=== PATIENT | female | born 1990 | race Caucasian/White ===

== ENCOUNTER 2018-01-07 13:24 | Emergency (ER) | payer MEDICAID, SELFPAY ==
[2018-01-07 13:25] VITALS: BP 138/86; PULSE 123; RESP 20; TEMP 37.6; O2SAT 98; BMI 29.3
--- NOTE | 2018-01-07 13:56 | CT_ITS ---
STUDY: CT BRAIN WITHOUT CONTRAST REASON FOR EXAM: Female, 27 years old. Migraine headache RADIATION DOSAGE (If Supplied By Facility): CTDIvol = ( 44.99 ) mGy, DLP = ( 1423.49 ) mGycm TECHNIQUE: Transaxial CT imaging of the brain was performed without administration of intravenous contrast material. Individualized dose optimization techniques were used for this CT. COMPARISON: June 05, 2016 FINDINGS: Normal soft tissue structures. Normal calvarium. Normal size ventricles and extra-axial spaces for the patient's age. Normal white matter tracts of the cerebral hemispheres. Normal basal ganglia and thalami. Normal brainstem. Normal cerebellum. There is no intracranial hemorrhage. There are no findings of an acute ischemic infarction. Normal visualized paranasal sinuses. CT/Brain/Head without Contrast IMPRESSION: Normal unenhanced CT scan of the brain. Electronically Signed: Mary Frederick MD at 14:45 EDT , Service support ,
[2018-01-07] MEDS: proCHLORPERazine 10 MG/2 ML Vial IV (14:10)
[2018-01-07] MEDS: 0.9% Normal Saline 1,000 ML 999 ML IV (14:10)
[2018-01-07] MEDS: DiphenhydrAMINE 50 MG/ML Syringe 25 MG IV (14:10)
--- NOTE | 2018-01-07 14:54 | ED.VISSUMM ---
- ER Visit Summary Date of Service: 01/07/18 Chief Complaint: Migraine headache History of Present Illness: The patient is a 27 F who presents with migraine headache that began today while she was at work. Patient states the pain began rather suddenly. Patient states her pain is diffuse across her head. Patient states this feels similar to prior migraine headaches but worse. Patient admits to some nausea and vomiting. Patient admits to some numbness in her hands bilaterally. Patient admits to some photophobia. Patient denies any scotoma or visual changes. Patient denies any neck pain. Physical Examination: Vital signs are stable. Patient is afebrile. Patient appears to be uncomfortable from her headache. Pupils are equal, round, reactive to light bilaterally. Extraocular muscles are intact. Oral mucosa is pink and moist. Neck is supple. There is no JVD noted. There is no lymphadenopathy. Heart was regular and tachycardic. Lungs are clear and equal bilateral. There is good respiratory effort noted. Abdomen is soft nontender. Cranial nerves II through XII are intact. There are no focal motor or sensory deficits noted. Remaining physical exam is within normal limits. Test Results: CT scan of the brain was obtained was within normal limits. Emergency Department Course and Treatment: Patient was given injections of Compazine and Benadryl. Patient had minimal relief with this. Patient was given an injection of Toradol. Patient states her headache resolved after this. Patient was instructed to rest in a dark quiet room. Patient was instructed to follow-up with her primary care physician in 5-7 days. Patient understood and was agreeable with the plan. All questions were answered. Disposition: Discharged home Impression: Migraine headache This note was generated with [employer] dictation software. It may contain incorrect words, spelling, and punctuation that were not noted in review of the chart prior to signing ED Disposition - Plan for ED Patient: Disposition: Home or Assisted Living Chief Complaint: Headache Diagnosis: Migraine headache without aura Instructions: ED Headache Migraine Referrals: [facility] Doctor,Out of [NON-STAFF] -
[2018-01-07] MEDS: Ketorolac 30 MG/ML Syringe IV (15:05)
[2018-01-07 15:40] VITALS: PULSE 112; RESP 16; O2SAT 95
[2018-01-07 15:51] VITALS: PULSE 112; RESP 14; O2SAT 95
--- NOTE | 2018-01-07 15:52 | ED.RN ---
REVIEWED D/C INSTRUCTIONS, FOLLOW UP CARE, AND S/S THAT WOULD WARRANT A RETURN TO THE ED WITH PT. PT VERBALIZED AN UNDERSTANDING AND DENIES FURTHER QUESTIONS FOR THIS RN. PT SKIN P/W/D, RESP EVEN AND UNLABORED, PT A&O X 3, NO DISTRESS NOTED. PT AMBULATED OUT OF ED, GAIT STEADY.
== END 2018-01-07 15:53 | disposition home or self-care (01) ==
PROVIDERS: Emergency Provider Emergency Medicine; PCP Family Medicine
DX: G43.909 Migraine, unspecified, not intractable, without status migrainosus (principal)
CPT/HCPCS: 70450; 96361; 96374; 96375; 99282; J7030

== ENCOUNTER 2019-01-21 05:02 | Emergency (ER) | payer BC, SELFPAY ==
[2019-01-21 05:04] VITALS: BP 115/85; PULSE 110; RESP 16; TEMP 37.6; O2SAT 97; BMI 29.2
[2019-01-21] MEDS: Metoclopramide 10 MG/2 ML Vial IV (05:32)
[2019-01-21] MEDS: 0.9% Normal Saline 1,000 ML 999 ML IV (05:32)
[2019-01-21] MEDS: Ketorolac 60 MG/2 ML Vial 30 MG IM (05:34)
--- NOTE | 2019-01-21 06:15 | ED.DCSUM_ITS ---
- ER Visit Summary Date of Service: 01/21/19 Chief Complaint: Migraine History of Present Illness: The patient is a 28 F who presents with a migraine. She has history migraines. Her current headache began about 2 hours ago. She woke with symptoms. It gradually worsened over the next 2 hours. She currently rates it as severe. It is similar in character and location to her previous headaches. She also reports photophobia and nausea which is typical of her previous migraines. She last had to come to the emergency department for migraine about a year ago. She did take some Tylenol at home without significant relief. No vomiting. Although triage note reported sore throat the patient denies this. Triage note also mentions shortness of breath. When asked the patient about this she states that she is not really short of breath but that when her pain becomes severe it takes her breath away. She denies recent illness such as fevers or cough. Physical Examination: Heart rate 110 vitals otherwise within normal limits Moist mucous membranes Heart regular tachycardia Lungs are clear Abdomen soft Alert No focal or lateralizing neurological deficits Test Results: Not indicated Emergency Department Course and Treatment: Presents with chief complaint of migraine with history of prior migraines with similar symptoms. She was treated with IV fluids Toradol Reglan. On reevaluation her headache is about 50% improved which is a tolerable level. She does continue to complain of some nausea. She was given IV Zofran. She feels well enough to go home. She understands to return for new or worsening symptoms and was discharged. Treatment Plan: [] Disposition: Discharge Impression: Migraine This note was generated with [employer] dictation software. It may contain incorrect words, spelling, and punctuation that were not noted in review of the chart prior to signing ED Disposition - Plan for ED Patient: Referrals: Dania Oseguera [Primary Care Provider] -
--- NOTE | 2019-01-21 06:17 | ED.DEP ---
ED Disposition - Plan for ED Patient: Instructions: HEADACHE, Unspecified Referrals: Dania Oseguera [Primary Care Provider] -
[2019-01-21] MEDS: Ondansetron 4 MG/2 ML Vial IV (06:24)
[2019-01-21 06:37] VITALS: PULSE 80; RESP 16; O2SAT 96
== END 2019-01-21 06:38 | disposition home or self-care (01) ==
PROVIDERS: Emergency Provider Emergency Medicine; PCP Family Medicine
DX: G43.909 Migraine, unspecified, not intractable, without status migrainosus (principal); Z72.0 Tobacco use
CPT/HCPCS: 96361; 96372; 96374; 96375; 99283; J7030; A4216; J2405

== ENCOUNTER 2023-02-03 12:29 | Emergency (ER) | payer MEDICAID, SELFPAY ==
[2023-02-03 12:30] VITALS: BP 124/97; PULSE 53; RESP 18; TEMP 36.1; O2SAT 97; BMI 30.2
--- NOTE | 2023-02-03 13:15 | EX.ED.DYSGE1 ---
HPI History of Present Illness Chief Complaint: Abd Pain PFSH PFSH Medical History (Updated 02/03/23 @ 15:[address] Justin Snider, DO) Carpal tunnel syndrome Collapsed lung Thyroid cancer Home Medications ondansetron 4 mg disintegrating tablet 4 mg PO Q8H PRN nausea and vomiting 5 days #15 tabs 02/03/23 [Rx Last Taken Unknown] sulfamethoxazole 800 mg-trimethoprim 160 mg tablet (Bactrim DS) 1 tab PO BID 7 days #14 tabs 02/03/23 [Rx Last Taken Unknown] Allergy/AdvReac Type Severity Reaction Status Date / Time No Known Allergies Allergy Verified 02/03/23 12:31 Surgical History (Updated 02/03/23 @ 12:37 by Ada Vela) H/O right wrist surgery Hx of left knee surgery Social History Smoking Status: Current every day smoker tobacco type: cigarettes EXAM Physical Exam Const Vital Signs: 02/03/23 12:30 02/03/23 14:32 Temperature 97 F L Temperature Source Temporal Pulse Rate 53 L 64 Respiratory Rate 18 17 Blood Pressure 124/97 H 125/86 H Blood Pressure Mean 106 99 Pulse Ox 97 100 Oxygen Delivery Method Room Air Room Air MDM MDM MDM Narrative Medical decision making narrative: HISTORY OF PRESENT ILLNESS: 32-year-old female here with 2 days of right flank and right lower quadrant TTP. Denies urinary complaints. Denies history of kidney stones. Notes history abdominal surgeries. Denies any vomiting but notes nausea. Denies any constipation or diarrhea. Last bowel was yesterday with no melena or hematochezia. REVIEW OF SYSTEMS: Pertinent positives: Abdominal pain, flank pain Pertinent negatives: Syncope, hematemesis PHYSICAL EXAM: Nursing triage notes reviewed, Vital signs reviewed Constitutional: please see mdm HENT: MMM Eyes: Pupils equal round and reactive to light, Extraocular muscles intact Neck: No stridor, no JVD, full neck ROM Lungs: Clear to auscultation, No wheezing or rales. No increased work of breathing, no conversational dyspnea, no accessory muscle use, no nasal flaring. No respiratory distress noted Heart: Regular rate and rhythm, No murmurs, No rubs and No gallops, 2+ distal pulses (radial, femoral, posterior tibial) in all extremities Abdomen: Soft, right lower quadrant TTP, no rigidity, rebound or guarding, no obvious peritoneal signs, no palpable pulsatile abdominal masses, no auscultated abdominal bruit : Right CVAT Extremities: No edema Neuro: No focal neurological deficits, cranial nerves II through XII intact, 5/5 strength in all extremities. Intact sensation to light touch in all extremities, 2+ reflexes bilateral patella tendons. Normal gait. No ataxia. Skin: No rash or lesions noted MEDICAL DECISION MAKING: Chief Complaint: Right lower quadrant, right flank pain External records reviewed: [No recent advanced imaging of the abdomen or pelvis Factors affecting care: Non Social determinants of health: none History obtained from others: none Consults: none ALL IMAGES (IF OBTAINED) HAVE BEEN PERSONALLY REVIEWED AND INTERPRETED BY MYSELF. Urine test is negative UA with signs of inflammation CBC without leukocytosis, severe anemia, no thrombocytopenia. BMP without evidence of significant electrolyte abnormalities, no anion gap, no acute kidney injury. LFTs show no evidence of hepatobiliary pathology. Lipase is wnl indicating no pancreatic inflammation. MDM Narrative: Patient was hemodynamically stable, afebrile, nontoxic-appearing abdominal exam with right lower quadrant TTP. There is also right CVA tenderness. I considered the following differential diagnosis: Acute appendicitis, nephrolithiasis, pyelonephritis, , ectopic , hepatobiliary obstruction I obtained a broad lab and imaging work-up to further elucidate etiology patient complaints. CT scan shows evidence of cystitis. CT showed no evidence of acute surgical intra-abdominal emergencies. UA was remarkable for signs of inflammation. Sent urine culture and gave empiric Bactrim for likely pyelonephritis given right CVA tenderness. Remainder patient's labs are unremarkable for signs of hepatobiliary obstruction, significant systemic inflammation, signs of endorgan hypoperfusion. She is appropriate discharge home with oral Bactrim with strict return precautions. [I gave the patient 1 L normal saline, morphine and Zofran for symptomatic relief. The patient and/or family, caregivers express understanding. The patient and/or family, caregivers agrees with the plan. Total critical care time today provided was at least 0 [] minutes. This excludes separately billable procedures. Critical care time (if documented) is secondary to the patient having high probability of clinically significant/life threatening deterioration in the patient's condition which required my urgent intervention. Shared decision making: I will have a discussion with the patient and or visitors regarding risk/benefits of further testing or admission. They will be made aware of of the risk/benefits inherent in this decision they will be given the opportunity to voice understanding. Lab Data Attestation: I reviewed the patient's lab results. Labs: Laboratory Results - last 24 hr 02/03/23 02/03/23 12:46 13:21 WBC 6.3 RBC 4.30 Hgb 13.2 Hct 39.8 MCV 92.6 MCH 30.7 MCHC 33.2 RDW Std Deviation 44.7 H RDW Coeff of Francisca 13.2 Plt Count 253 MPV 10.4 Immature Gran % (Auto) 0.200 Neut % (Auto) 56.2 Lymph % (Auto) 29.9 [place] % (Auto) 9.3 Eos % (Auto) 3.3 Baso % (Auto) 1.1 H Absolute Neuts (auto) 3.6 Absolute Lymphs (auto) 1.89 Nucleated RBC % 0 Sodium 138 Potassium 4.2 Chloride 106 Carbon Dioxide 29.0 Anion Gap 3 L BUN 13 Creatinine 0.88 Estim Creat Clear Calc 73.93 Est GFR (MDRD) Af Amer 96 Est GFR (MDRD) Non-Af 80 BUN/Creatinine Ratio 14.7 Glucose 89 Calcium 8.5 Total Bilirubin 0.20 Direct Bilirubin 0.08 AST 13 L ALT 16 Alkaline Phosphatase 51 Total Protein 7.5 Albumin 3.2 Globulin 4.3 H Lipase 30 Urine Color Yellow Urine Clarity Sl. Cloudy Urine pH 6.0 Ur Specific [place] 1.015 Urine Protein 30 H Urine Glucose (UA) Normal Urine Ketones Negative Urine Occult Blood 25 H Urine Nitrite Negative Urine Bilirubin Negative Urine Urobilinogen Normal Ur Leukocyte Esterase 100 H Urine RBC 5-10 SEEN Urine WBC 50-100 SEEN Ur Squamous Epith Cells 0-5 SEEN Ur Renal Epithelial Cell 0-5 SEEN Urine Bacteria 1+ Urine Mucus 0 SEEN Urine Test Negative Radiography Diagnostic Testing: Clinical Impression(s) from Imaging Studies Abdomen/Pelvis CT 02/03/23 14:15 IMPRESSION: Diffuse bladder wall thickening. Cystitis should BE ruled out. Follicles are seen in both ovaries. Embolic coils are seen in the splenic artery. Electronically Signed: Ned Rutledge MD at 15:09 EDT , Discharge Plan Triage Chief Complaint: Abd Pain ED Provider: Justin Snider Dx/Rx/DC Orders Clinical Impression: Pyelonephritis Instructions: ED Pyelonephritis, Female (Adult) Prescriptions: New sulfamethoxazole-trimethoprim [Bactrim DS] 800-160 mg tablet 1 tab PO BID 7 Days Qty: 14 0RF ondansetron 4 mg tablet,disintegrating 4 mg PO Q8H PRN (Reason: nausea and vomiting) 5 Days Qty: 15 0RF Stand Alone Forms: ED Work / School Excuse Primary Care Provider: CHANDAN BOSS Referrals: CHANDAN BOSS DO [Primary Care Provider] - Activity Restrictions/Additional Instructions: Thank you for trusting us with your care today! Please take Tylenol (2 pills, 650 mg), ibuprofen (2 pills, 400 mg) every 6 hours as needed for pain and fever control. Please take Bactrim as prescribed. Please finish the entire course of antibiotics. Please take Zofran for nausea. Please return to the emergency department if your symptoms change or worsen. Specifically develop nausea and vomiting cannot tolerate antibiotics by mouth. If your pain changes or worsens or causes loss of consciousness. Please follow with your primary care physician for further outpatient evaluation and management. Disposition Disposition: Home, Self Care
[2023-02-03] MEDS: Morphine 4 MG/ML Syringe IV (13:24)
[2023-02-03] MEDS: Ondansetron 4 MG/2 ML Vial IV (13:25)
[2023-02-03] MEDS: 0.9% Normal Saline 1,000 ML 1000 ML IV (13:25)
[2023-02-03 13:26] LABS: Mucous, Urine 0 SEEN /hpf (<or=2+)
[2023-02-03 13:29] LABS: Absolute Lymphocyte Count 1.89 X10^3/uL (0.83-4.51); Absolute Neutrophil Count 3.6 X10^3/uL (2.0-7.7); Basophil# 0.07 X10^3/uL; Basophil% 1.1 % (0-1); Eosinophil# 0.21 X10^3/uL; Eosinophils% 3.3 % (0-5); Hematocrit 39.8 % (37-47); Hemoglobin 13.2 g/dL (12.0-15.0); Lymphocyte # 1.89 X10^3/ul (0.83-4.51); Lymphocyte % 29.9 % (19-41); Mean Corp Hgb Conc 33.2 g/dL (32-36); Mean Corpuscular Hgb 30.7 pg (27.0-32.0); Mean Corpuscular Volume 92.6 fL (81-99); Mean Platelet Vol. 10.4 fl (6.2-12.0); Monocyte# 0.59 X10^3/uL; Monocyte% 9.3 % (0-10); NRBC Flagged by Analyzer 0 % (0-5); Neutrophil # 3.56 X10^3/uL (2.7-7.7); Neutrophil % 56.2 % (47-70); Platelet Count 253 K/mm3 (150-450); RBC Distribution Width CV 13.2 % (11.6-14.6); RBC Distribution Width SD 44.7 fl (35.1-43.9); White Blood Count 6.3 K/mm3 (4.4-11.0)
[2023-02-03 13:30] LABS: Color, Urine Yellow (Yellow); Glucose, Dipstick Normal (Normal); Ketone-Dipstick Negative (Negative); Leukocyte Esterase-Dipstick 100 /ul (Negative); Nitrite-Dipstick Negative (Negative); Occult Blood-Urine 25 /ul (Negative); Protein-Dipstick 30 mg/dl (Negative); Specific Gravity, Urine 1.015 (1.002-1.030); Urine Bilirubin Dipstick Negative (Negative); Urine Clarity Sl. Cloudy (Clear); Urine Urobilinogen Normal (Normal)
[2023-02-03 13:39] LABS: Internal QC Validated? YES +Cl - CLEAR BKGD; Pregnancy, Urine Negative Negative
[2023-02-03 13:45] LABS: White Blood Cells 50-100 SEEN /hpf (0-5)
[2023-02-03 13:46] LABS: Bacteria 1+ /hpf (None Seen); Red Blood Cells-Urine 5-10 SEEN /hpf (0-5); Renal Epithelial Cells 0-5 SEEN /hpf (0-5); Squamous Epithelial Cells - UA 0-5 SEEN /hpf (5-10)
[2023-02-03 13:56] LABS: AST(SGOT) 13 U/L (15-37); Alanine Aminotransfer ALT/SGPT 16 U/L (13-56); Albumin, Serum 3.2 g/dL (3.2-5.0); Alkaline Phosphatase 51 U/L (45-117); Anion Gap 3 (5-15); BUN 13 mg/dL (7-18); BUN/Creat Ratio 14.7 RATIO (10-20); Bilirubin, Direct 0.08 mg/dL (0.00-0.30); Calcium,Total 8.5 mg/dL (8.5-10.1); Chloride 106 mmol/L (98-107); Creatinine, Serum 0.88 mg/dL (0.55-1.02); EST Glomerular Filtration Rate 80 mL/min (>60); Est Glom Filt Rate - Afr Amer 96 mL/min (>60); Estimated Creatinine Clearance 73.93 ml/min; Globulin 4.3 g/dL (2.2-4.2); Glucose 89 mg/dL (74-106); Lipase 30 U/L (13-75); Potassium 4.2 mmol/L (3.5-5.1); Protein, Total 7.5 g/dL (6.4-8.2); Sodium Level 138 mmol/L (136-145)
--- NOTE | 2023-02-03 14:15 | CT_ITS ---
STUDY: CT ABDOMEN AND PELVIS WITH CONTRAST REASON FOR EXAM: Female, 32 years old. RLQ TTP r/o acute appendicitis. [facility] JUN 2022 WITH COIL PLACED RADIATION DOSAGE (If Supplied By Facility): CTDIvol = ( 11.22 ) mGy, DLP = ( 945.50 ) mGycm TECHNIQUE: Transaxial images were obtained from the dome of the diaphragm to the symphysis pubis without oral contrast. IV 100mL Isovue-300 was administered. Sagittal and coronal images were reconstructed. Individualized dose optimization techniques were used for this CT. COMPARISON: None. FINDINGS: The visualized lung bases are unremarkable. The visualized portions of the heart are within normal limits. Normal liver. Normal gallbladder and extrahepatic biliary system. Normal spleen. Embolic coils are seen in the splenic artery. Normal pancreas. Normal bilateral adrenal glands. Normal right kidney. Normal left kidney. Normal visualized stomach. Normal small intestine. Normal colon. The appendix is visualized and appears normal. Normal abdominal aorta. Normal inferior vena cava. Normal retroperitoneum. Diffuse bladder wall thickening. Cystitis should BE ruled out. Follicles are seen in both ovaries. Normal abdominal wall. Normal osseous structures. CT/Abdomen/Pelvis W IV Cont ONLY IMPRESSION: Diffuse bladder wall thickening. Cystitis should BE ruled out. Follicles are seen in both ovaries. Embolic coils are seen in the splenic artery. Electronically Signed: Ned Rutledge MD at 15:09 EDT ,
[2023-02-03] MEDS: Ketorolac 15 MG/ML Vial IV (14:24)
[2023-02-03 14:32] VITALS: BP 125/86; PULSE 64; RESP 17; O2SAT 100
[2023-02-03 15:22] VITALS: BP 126/83; RESP 17
[2023-02-03] MEDS: Smz/Tmp Ds Tablet 1 TABLET PO (15:23)
== END 2023-02-03 15:40 | disposition home or self-care (01) ==
PROVIDERS: Emergency Provider Emergency Medicine; PCP Family Medicine; Visit Provider Emergency Medicine
DX: N12 Tubulo-interstitial nephritis, not specified as acute or chronic (principal); F17.210 Nicotine dependence, cigarettes, uncomplicated; Z85.850 Personal history of malignant neoplasm of thyroid
CPT/HCPCS: 74177; 80048; 80076; 81001; 81025; 83690; 85025; 99284; J7040; Q9967; A4216; J2405

== ENCOUNTER 2025-04-16 02:26 | Emergency (ER) | payer MEDICAID, SELFPAY ==
[2025-04-16 02:27] VITALS: BP 125/93; PULSE 65; RESP 18; TEMP 36.6; O2SAT 100; BMI 36.4
--- NOTE | 2025-04-16 02:42 | CT_ITS ---
PROCEDURE: ABDOMEN/PELVIS W IV CONT ONLY 04/16/2025 REASON FOR EXAM: ABD PAIN TECHNIQUE: Procedure Code: [id number] Modality: CT Procedure: ABDOMEN/PELVIS W IV CONT ONLY Coronal and Sagittal reconstruction series were provided. CONTRAST: Isovue 370 VOLUME: 92 mL One or more dose reduction techniques were used (e.g., Automated exposure control, adjustment of the mA and/or kV according to patient size, use of iterative reconstruction technique. RADIATION DOSE SUMMARY: CTDlvol: 28.23 mGy DLP: 1433.22 mGycm COMPARISON: CT abdomen and pelvis 02/03/2023. FINDINGS: Lung bases: Clear. Liver: Unremarkable. Gallbladder: Unremarkable. No biliary dilation. Spleen: Unremarkable. Pancreas: Unremarkable. Adrenals: Unremarkable. Kidneys: Unremarkable. No hydronephrosis or nephrolithiasis. Bladder: Diffuse wall thickening concerning for acute cystitis. Reproductive Organs: Unremarkable. GI: Metallic coil from prior intervention is near the gastroesophageal junction. No bowel wall thickening or bowel obstruction. Appendix: Normal. Lymph nodes: No lymphadenopathy Vasculature: No aneurysm. Peritoneum / Retroperitoneum: No free air and free fluid. Bones: No acute bony abnormalities. CT/Abdomen/Pelvis W IV Cont ONLY IMPRESSION: Bladder wall thickening concerning for. Correlation with urinalysis is recomme nded. Reading Location: [facility]
[2025-04-16] MEDS: 0.9% Normal Saline (1000mL) 1,000 ML 999 ML IV (02:52)
[2025-04-16 02:59] LABS: Hematocrit 37.5 % (37-47); Hemoglobin 12.5 g/dL (12.0-15.0); Immature Granulocytes Count 0.030 X10^3/uL (0.0-0.0); Mean Corp Hgb Conc 33.3 g/dL (32-36); Mean Corpuscular Volume 88.0 fL (81-99); Mean Platelet Vol. 11.1 fl (6.2-12.0); NRBC Flagged by Analyzer 0 % (0-5); Platelet Count 300 K/mm3 (150-450); RBC Distribution Width CV 14.1 % (11.6-14.6); RBC Distribution Width SD 45.0 fl (35.1-43.9); Red Blood Count 4.26 M/mm3 (4.2-5.4); White Blood Count 9.9 K/mm3 (4.4-11.0)
[2025-04-16 03:06] LABS: Internal QC Validated? YES +Cl - CLEAR BKGD; Pregnancy, Serum, hCG Quali. NEGATIVE Negative; Record Kit Lot#, Serum Preg. 0000964736
[2025-04-16 03:07] LABS: Color, Urine Yellow (Yellow); Glucose, Dipstick Normal (Normal); Ketone-Dipstick 5 mg/dl (Negative); Leukocyte Esterase-Dipstick 500 /ul (Negative); Nitrite-Dipstick Negative (Negative); Occult Blood-Urine 250 /ul (Negative); Protein-Dipstick 100 mg/dl (Negative); Specific Gravity, Urine 1.010 (1.002-1.030); Urine Bilirubin Dipstick Negative (Negative)
[2025-04-16 03:12] LABS: Mucous, Urine 1+ /hpf (<or=2+); Red Blood Cells-Urine 25-50 SEEN /hpf (0-5); Squamous Epithelial Cells - UA 0-5 SEEN /hpf (5-10)
[2025-04-16 03:17] LABS: AST(SGOT) 17 U/L (<=31); Alanine Aminotransfer ALT/SGPT 10 U/L (<=34); Albumin, Serum 3.9 g/dL (3.5-5.0); Alkaline Phosphatase 67 U/L (35-104); Anion Gap 12 (5-15); BUN 15 mg/dL (4-19); BUN/Creat Ratio 16.6 RATIO (10-20); Bilirubin, Direct 0.11 mg/dL (0.00-0.30); Calcium,Total 8.6 mg/dL (7.6-11.0); Carbon Dioxide 22.6 mmol/L (21.0-32.0); Chloride 105 mmol/L (98-108); Estimated Creatinine Clearance 94.87 ml/min (50-250); Globulin 2.8 g/dL (2.2-4.2); Glucose 105 mg/dL (70-99); Lipase 26 U/L (13-75); Potassium 3.5 mmol/L (3.3-5.1)
--- NOTE | 2025-04-16 03:49 | EDS_ITS ---
HPI History of Present Illness Chief Complaint: Abd Pain Informant: patient Narrative Narrative: Patient is a 34-year-old female with past medical history of thyroid cancer requiring thyroidectomy currently on Synthroid as well as anxiety. She states that today she just overall felt unwell. She states she went for an afternoon walk with her dog and children as she normally does and after returning home from this noticed increased midepigastric abdominal pain. She states that symptoms improved but after a repeat walk in the evening they returned and this time are more intense. She states she is nauseous without vomiting. She reports that she then progressed to loose stool/diarrhea. She denies any blood or discoloration in the stool. She states that there has been no recent antibiotic use travel outside the country or exposure to livestock. She states that as time as past her symptoms seem to be worsening and with concern for underlying infection comes in for evaluation. [facility] Medical History Carpal tunnel syndrome Collapsed lung Thyroid cancer Home Medications ?Medication ?Instructions ?Recorded ?Last Taken ?Type baclofen 10 mg tablet 10 mg PO TID PRN muscle spas m 04/16/25 Unknown History calcitriol 0.5 mcg capsule 0.5 mcg PO DAILY 04/16/25 U nknown History calcium citrate 200 mg PO DAILY 04/16/25 Unk nown History escitalopram oxalate 10 mg tablet 10 mg PO DAILY 04/16 Unknown History levothyroxine 125 mcg tablet 125 mcg PO DAILY 04/16/25 Unknown History nitrofurantoin 100 mg PO BID 7 days #14 cap s 04/16/25 Unknown Rx monohydrate/macrocrystals 100 mg capsule (Macrobid) oxycodone-acetaminophen 5 mg-325 1 tab PO Q6H PRN pain 3 days #12 04/16/25 Unknown Rx mg tablet (Percocet) tabs prochlorperazine maleate 10 mg 10 mg PO TID PRN nausea and 04/16/25 Unknown Rx tablet (Compazine) vomiting #21 tabs Allergy/AdvReac Type Severity Reaction Status Date / Time No Known Allergies Allergy Verified 04/16/25 02:27 Family History no significant family his Surgical History H/O right wrist surgery Hx of left knee surgery Social History Smoking Status: Current every day smoker tobacco type: cigarettes ROS ROS ED Constitutional Constitutional ED: Denies chills or fever(s) ENT ENT ED: Denies sore throat Cardiovascular Cardiovascular: Denies chest pain Respiratory/Chest Respiratory/Chest: Denies cough or dyspnea Gastrointestinal Gastrointestinal: Reports abdominal pain and nausea; Denies diarrhea or vomiting Genitourinary Genitourinary ED: Reports urinary frequency; Denies dysuria or hematuria Musculoskeletal Musculoskeletal: Reports back pain and myalgias Integumentary Denies rash Neurologic Neurologic: Denies headache(s) Hematologic/Lymphatic Hematologic/Lymphatic: Denies easy bleeding or easy bruising EXAM Physical Exam Const Vital Signs: 04/16/25 02:27 04/16/25 05:00 04/16/25 06:37 Temperature 98 F 98.2 F Temperature Source Oral Pulse Rate 65 53 L 62 Respiratory Rate 18 16 18 Blood Pressure 125/93 H 98/54 L 101/68 Blood Pressure Mean 103 68 79 Pulse Ox 100 93 94 Oxygen Delivery Method Room Air Room Air Positive well nourished, well developed and obese General Appearance ED: well developed; Negative for pallor Nutritional Appearance: obese HEENT HEENT Narrative: Normocephalic atraumatic No tongue or lip swelling no oral lesions no airway edema or compromise; no secondary findings in the posterior pharynx to suggest infection Eyes PERRL and EOMs intact bilaterally General Eye ED: Negative for scleral icterus Neck supple Neck Narrative: No nuchal rigidity or meningeal signs Resp normal respiratory effort and clear to auscultation bilaterally Cardio regular rate and regular rhythm Rate: other Other Details: Heart is regular rate and rhythm without murmurs rubs or gallops Radial and carotid pulses are equal and symmetric GI non-distended and no masses GI Narrative: Abdomen is soft and nondistended with hyperactive bowel sounds. There is mild generalized/diffuse pain with palpation that is greatest in the midepigastric region. No voluntary guarding or rigidity. No pulsatile mass. No peritoneal signs Auscultation: hyperactive bowel sounds Palpation: soft Back/Spine Back/Spine Narrative: There is left CVA pain noted Extremity normal to inspection Neuro oriented x3, CN's II-XII intact bilaterally and no sensory deficits noted Sensorium / Orientation: alert Motor Exam: strength 5/5 throughout Psych mental status grossly normal Skin no rashes or lesions noted General Skin Exam: Negative for jaundice or pallor MDM MDM MDM Narrative Medical decision making narrative: The patient arrived to the ER with stable vitals. She reported generalized abdominal discomfort with loose stool. However she denied any recent antibiotic use to suggest C. difficile or travel outside the country to suggest E. coli infection. With her report of generalized abdominal discomfort nausea and loose stool/diarrhea there is concern patient may have a viral infection such as norovirus or rotavirus. Previous chart review reveals she had similar symptoms however when she had a UTI. Therefore at this time basic labs will be obtained with urine sample as well as a CT scan with IV contrast to rule out colitis intestinal abscess diverticulitis appendicitis or pyelonephritis. Labs revealed no leukocytosis or left shift and no findings of acute kidney injury or clinically significant electrolyte abnormality. Urine did show changes consistent with infection and there was blood as well. Therefore there was also concern for potential kidney stone. The CT scan revealed just thickening of the bladder concerning for cystitis but had no other clinically significant findings. This does correlate with her urine sample. However she does not have signs of LYSSA or urosepsis and reports feeling much better after provided medication in the ER. Therefore I feel there is no need for further testing or admission and should be given antibiotics and symptomatic medications and is otherwise safe for discharge History & Record Review Discussion w/independent historian: Patient Lab Data Attestation: I reviewed the patient's lab results. Labs: Laboratory Results - last 24 hr 04/16/25 04/16/25 02:28 02:50 WBC 9.9 RBC 4.26 Hgb 12.5 Hct 37.5 MCV 88.0 MCH 29.3 MCHC 33.3 RDW Std Deviation 45.0 H RDW Coeff of Francisca 14.1 Plt Count 300 MPV 11.1 Immature Gran % (Auto) 0.300 Neut % (Auto) 60.0 Lymph % (Auto) 25.6 Blanco % (Auto) 8.5 Eos % (Auto) 4.7 Baso % (Auto) 0.9 Absolute Neuts (auto) 5.9 Absolute Lymphs (auto) 2.53 Nucleated RBC % 0 Sodium 139 Potassium 3.5 Chloride 105 Carbon Dioxide 22.6 Anion Gap 12 BUN 15 Creatinine 0.89 Estim Creat Clear Calc 94.87 Est GFR (MDRD) Non-Af 88 BUN/Creatinine Ratio 16.6 Glucose 105 H Calcium 8.6 Total Bilirubin 0.24 Direct Bilirubin 0.11 AST 17 ALT 10 Alkaline Phosphatase 67 Total Protein 6.7 Albumin 3.9 Globulin 2.8 Lipase 26 Serum , Qual NEGATIVE Urine Color Yellow Urine Clarity Cloudy Urine pH 7.0 Ur Specific [place] 1.010 Urine Protein 100 H Urine Glucose (UA) Normal Urine Ketones 5 H Urine Occult Blood 250 H Urine Nitrite Negative Urine Bilirubin Negative Urine Urobilinogen Normal Ur Leukocyte Esterase 500 H Urine RBC 25-50 SEEN Urine WBC 10-25 SEEN Ur Squamous Epith Cells 0-5 SEEN Amorphous Sediment 1+ Urine Bacteria 2+ Urine Mucus 1+ Radiography Diagnostic Testing: Clinical Impression(s) from Imaging Studies Abdomen/Pelvis CT 04/16/25 02:42 IMPRESSION: Bladder wall thickening concerning for. Correlation with urinalysis is recommended. Reading Location: [facility] Discharge Plan Triage Chief Complaint: Abd Pain ED Provider: Arnulfo Lawler Dx/Rx/DC Orders Clinical Impression: UTI (urinary tract infection), Diarrhea, Nausea Instructions: Urinary Tract Infections in Women, ED Gastroenteritis, Viral (Adult) Prescriptions: New nitrofurantoin monohyd/m-cryst [Macrobid] 100 mg capsule 100 mg PO BID 7 Days Qty: 14 0RF Rx Instructions: must administer with a meal/food prochlorperazine maleate [Compazine] 10 mg tablet 10 mg PO TID PRN (Reason: nausea and vomiting) Qty: 21 0RF oxycodone-acetaminophen [Percocet] 5-325 mg tablet 1 tab PO Q6H PRN (Reason: pain) 3 Days Qty: 12 0RF No Action baclofen 10 mg tablet 10 mg PO TID PRN (Reason: muscle spasm) calcitriol 0.5 mcg capsule 0.5 mcg PO DAILY levothyroxine 125 mcg tablet 125 mcg PO DAILY calcium citrate 200 mg (950 mg) tablet 200 mg PO DAILY escitalopram oxalate 10 mg tablet 10 mg PO DAILY Primary Care Provider: CHANDAN BOSS Referrals: CHANDAN BOSS DO [Primary Care Provider, Medical] Activity Restrictions/Additional Instructions: Your workup today revealed findings of a urinary tract infection but no kidney stone or appendicitis. I do feel that you have the UTI but also with this because of the nausea and loose stool that you have developed a viral stomach infection. Take the antibiotic/Macrobid as directed to resolve the UTI which would usually take 2 to 3 days. The viral infection should also resolve spontaneously over the next 3 to 7 days as well. Keep yourself well-hydrated and return to the ER should you have any further concerns Print Language: Tajik Disposition Disposition: Home, Self Care Discharge Date/Time: 04/16/25 06:40
--- OUTSIDE RECORDS SUMMARY | 2025-04-16 03:56 | XMS RPT_ITS | CCD ---
Author Organization [facility] Care Team Providers Care Legal Consultant Name Role Phone Chandan Boss Primary Care Provider DR CHANDAN BOSS DO Primary Care Physician Chandan Boss Primary Care Provider Chandan Boss Primary Care Provider Chandan Boss DO Primary Care Provider Chandan Boss DO Primary Care Provider [phone] PROVIDER, UNKNOWN Primary Care Unavailable PROVIDER, UNKNOWN Referring Unavailable Vishnu Guerrero Attending Unavailable PROVIDER, UNKNOWN Primary Care Unavailable PROVIDER, UNKNOWN Referring Unavailable Gerritsen Vishnu Attending Unavailable PROVIDER, UNKNOWN Referring Unavailable Gerritsjuan Vishnu Attending Unavailable PROVIDER, UNKNOWN Primary Care Unavailable No, Physician Primary Care Provider Unavailabl e DHRUVSEAN Admitting Unavailabl e DHRUV, SEAN DAVIS Consulting Unavailabl e DHRUV, SEAN DAVIS Attending Unavailabl e NO, PHYSICIAN Primary Care Unavailable STILLWAGON, SHANNEN Consulting Unavailable NO, PHYSICIAN Primary Care Unavailable EMERGENCY, TRIAGE PROTOCOL Admitting Unava ilable EMERGENCY, TRIAGE PROTOCOL Referring Unava ilable STILLWAGON, SHANNEN Attending Unavailable NO, PHYSICIAN Primary Care Unavailable STILLWAGON, SHANNEN Admitting Unavailable Chandan Boss Primary Care Provider Chandan Boss DO Primary Care Provider Chandan Boss DO Primary Care Provider DR CHANDAN BOSS DO Primary Care Physician Vijay Snider Attending Unavailable CHANDAN BOSS Primary Care Unavailable HUONG VELÁZQUEZ, DR SANJANA Dawkins Attending DR CHANDAN Pink DO Primary Care UnavailChandan Rowley DO Primary Care Provider [phone] BOSS, CHANDAN M Primary Care Unavailable SOWMYA PORTILLO Referring Unavailable MEE BRIAN Attending Unavailable BOSS, CHANDAN M Primary Care Unavailable MEE BRIAN Referring Unavailable LEANDRO HERNANDEZ Attending Unavailable BOSS, CHANDAN M Primary Care Unavailable NARESH CHESTER Referring UnavailNARESH Prasad Attending Unavailabl e ALVERTO HEDRICK Referring Unavailable ANTHONY EVANS Attending Unavailable BOSS, CHANDAN M Primary Care Unavailable BOSS, CHANDAN M Primary Care Unavailable YARA HERRING Attending Unavailable BOSS, CHANDAN M Primary Care Unavailable YARA HERRING Attending Unavailable BOSS, CHANDAN M Primary Care Unavailable MEE BRIAN Attending Unavailable BOSS, CHANDAN M Primary Care Unavailable ORI RAGLAND Attending Unavailable SELF Referring Unavailable BOSS, CHANDAN M Primary Care Unavailable MEGHAN TAYLOR Attending Unavailable BOSS, CHANDAN M Primary Care Unavailable ALVERTO HEDRICK Referring Unavailable ANTHONY EVANS Attending Unavailable BOSS, CHANDAN M Primary Care Unavailable CLIF IYER Referring Unavailable BOSS, CHANDAN M Primary Care Unavailable CLIF IYER Attending Unavailable BOSS, CHANDAN M Primary Care Unavailable NARESH CHESTER Referring Unavailabl e NARESH CHESTER Attending Unavailabl e BOSS, CHANDAN M Primary Care Unavailable NARESH CHESTER Attending Unavailabl e BOSS, CHANDAN M Primary Care Unavailable BOSS, CHANDAN M Primary Care Unavailable NARESH CHESTER Attending Unavailabl e BOSS, CHANDAN M Primary Care Unavailable SOWMYA PORTILLO Admitting Unavailable RENETTA MCALLISTER Attending Unavailab adrián BOSS, CHANDAN M Primary Care Unavailable SOWMYA PORTILLO Attending Unavailable SOWMYA PORTILLO Admitting Unavailable BOSS, CHANDAN M Primary Care Unavailable LEANDRO HERNANDEZ Attending Unavailable BOSS, CHANDAN M Primary Care Unavailable LEANDRO HERNANDEZ Referring Unavailable ALVERTO HEDRICK Attending Unavailable ALVERTO HEDRICK Referring Unavailable BOSS, CHANDAN M Primary Care Unavailable BOSS, CHANDAN M Primary Care Unavailable SOWMYA PORTILLO Attending Unavailable ALVERTO HEDRICK Referring Unavailable BOSS, CHANDAN M Primary Care Unavailable PAPA TERAN Attending Unavailable BOSS, CHANDAN M Primary Care Unavailable SOWMYA PORTILLO Referring Unavailable SOWMYA PORTILLO Attending Unavailable ALVERTO HEDRICK Attending Unavailable BOSS, CHANDAN M Primary Care Unavailable LEANDRO HERNANDEZ Referring Unavailable KLUTTS, ALVERTO Matthew Referring Unavailable BOSS, CHANDAN M Primary Care Unavailable KLUTALVERTO PEARSON Attending Unavailable KLUTTS, ALVERTO L Referring Unavailable BOSS, CHANDAN M Primary Care Unavailable KLUTTS, ALVERTO Matthew Referring Unavailable BOSS, CHANDAN M Primary Care Unavailable BOSS, CHANDAN M Primary Care Unavailable KLUTTS, ALVERTO L Referring Unavailable ANTHONY EVANS Attending Unavailable BOSS, CHANDAN M Primary Care Unavailable YARA HERRING Referring Unavailable BOSS, CHANDAN M Primary Care Unavailable ANA MARIA MARES Referring Unavailable LUCILLE VALE Referring Unavailable BOSS, CHANDAN M Primary Care Unavailable MECHELLE GARRIDO Attending Unavailable BOSS, CHANDAN M Primary Care Unavailable KLROSANA, ALVERTO Matthew Referring Unavailable BOSS, CHANDAN M Primary Care Unavailable SOWMYA PORTILLO Referring Unavailable BOSS, CHANDAN M Primary Care Unavailable BOSS, CHANDAN M Primary Care Unavailable LUCILLE VALE Attending Unavailable BOSS, CHANDAN M Referring Unavailable BOSS, CHANDAN M Primary Care Unavailable ДМИТРИЙ BRITO Referring Unavailable BOSS, CHANDAN M Primary Care Unavailable SID HARRIS Attending Unavailable NARESH CHESTER Referring Unavailable BOSS, CHANDAN M Primary Care Unavailable MARIO RANGEL Attending Unavailable PAPA TERAN Referring Unavailable BOSS, CHANDAN M Primary Care Unavailable MARIO RANGEL Attending Unavailable MEGHAN TAYLOR Referring Unavailable BOSS, CHANDAN M Primary Care Unavailable MEGHAN TAYLOR Referring Unavailable BOSS, CHANDAN M Primary Care Unavailable MARIO RANGEL Attending Unavailable MEGHAN TAYLOR Referring Unavailable BOSS, CHANDAN M Primary Care Unavailable MARIO RANGEL Attending Unavailable PAPA TERAN Referring Unavailable BOSS, CHANDAN M Primary Care Unavailable MARIO RANGEL Attending Unavailable ALVERTO HEDRICK Referring Unavailable BOSS, CHANDAN M Primary Care Unavailable AIDAN SUGGS Attending Unavailable SID HARRIS Referring Unavailable BOSS, CHANDAN M Primary Care Unavailable MECHELLE GARRIDO Attending Unavailable SELF Referring Unavailable BOSS, CHANDAN M Primary Care Unavailable BOSSMAGDYCHANDAN Attending Unavailable BOSS, CHANDAN Referring Unavailable BOSS, CHANDAN Primary Care Unavailable BOSS, CHANDAN Primary Care Unavailable SIGNS, ALYCIA Referring Unavailable BOSS, CHANDAN Primary Care Unavailable BOSS, CHANDAN Attending Unavailable BOSS, CHANDAN Attending Unavailable BOSS, CHANDAN Referring Unavailable BOSS, CHANDAN Primary Care Unavailable ZMEILI, CHLOE Referring Unavailable BOSS, CHANDAN Primary Care Unavailable ZMEILI, CHLOE Attending Unavailable ZMEILI, CHLOE Referring Unavailable BOSS, CHANDAN Primary Care Unavailable ZMEILI, CHLOE Attending Unavailable BOSS, CHANDAN Attending Unavailable BOSS, CHANDAN Primary Care Unavailable ZMEILI, CHLOE Attending Unavailable BOSS, CHANDAN Primary Care Unavailable BOSS, CHANDAN Primary Care Unavailable ZMEILI, CHLOE Attending Unavailable BOSS, CHANDAN Attending Unavailable OBSS, CHANDAN Referring Unavailable BOSS, CHANDAN Primary Care Unavailable BOSS, CHANDAN Primary Care Unavailable ZMEILI, CHLOE Attending Unavailable ZMEILI, CHLOE Referring Unavailable BRANCHDARRELL Attending Unavailable SELF Referring Unavailable BOSS, CHANDAN M Primary Care Unavailable BRANCHDARRELL Attending Unavailable SELF Referring Unavailable BOSS, CHANDAN M Primary Care Unavailable Allergies Allergy Classification Reported Allergen(s) Allergy Type Date of Onset Reaction(s) Facility (10 sources) Adhesive Tape Propensity to adverse reactions to drug 5 Rash [place] (20 sources) Latex; Translations: [LATEX] Propensity to adverse reactions to drug 5 Itching [place], [place] (6 sources) Adhesive agent; Translations: [ADHESIVE] Drug Allergy [address] [facility] (20 sources) Chocolate; Translations: [CHOCOLATE] Food Allergy [address] [facility] (2 sources) Adhesive Tape-Silicones; Translations: [ADHESIVE TAPE-SILICONES] Propensity to adverse reactions to drug 2 Dermatitis [facility] (20 sources) Adhesive agent Drug Allergy [address] [facility] (20 sources) Latex Propensity to adverse reactions 5 Itching [facility] (20 sources) Wound Dressing Adhesive Drug Allergy 5 Rash [facility] (20 sources) DULoxetine; Translations: [DULOXETINE] Drug Allergy [address] [facility] Work Phone: (20 sources) gabapentin; Translations: [GABAPENTIN] Drug Allergy 3 [facility] (3 sources) topiramate; Translations: [TOPIRAMATE] Drug Allergy [address] [facility] Other [place] [facility] Medications Current Medications Medication Drug Class(es) Dates Sig (Normalized) Sig (Original) benzocaine 6 mg / menthol 10 mg oral lozenge (1 source) Standardized Chemical Allergen Start: 01-23-2022 Benzocaine-Mentho l (CEPACOL) 1 lozenge calcitriol 0.0005 mg oral capsule (20 sources) Vitamin D3 Analog Start: 07-01-2022 End: 07-08-2022 take 0.5 ug by mouth once daily 0.5 mcg, Oral, Daily, First dose on Thu07/01/22 at 1500 Start: 04-29-2022 End: 09-28-2024 take 1 capsule by mouth once daily calcitriol (Rocaltrol) 0.5 MCG capsule Take 1 capsule (0.5 mcg) by mouth daily. 90 capsule 09/28/2024 Active Comment on above: Take 0.5 mcg by mout h once daily. calcium citrate 950 mg oral tablet (20 sources) Start: 04-28-2024 End: 09-28-2025 take 1 tablet by mouth once daily calcium citrate (Calcitrate) 950 (200 Ca) MG tablet Take 1 tablet (950 mg) by mouth daily. 90 tablet 5 09/28/2024 09/28/2025 Active Start: 05-07-2023 End: 05-06-2024 take 1 tablet by mouth twice daily calcium citrate (Calcitrate) 950 (200 Ca) MG tablet Take 1 tablet (950 mg) by mouth 2 times daily. 60 tablet 11 05/07/2023 04/28/2024 Discontinued (Reorder) cyclobenzaprine hydrochloride 10 mg oral tablet (14 sources) Muscle Relaxant Start: 07-01-2022 End: 12-26-2022 cyclobenzaprine (Flexeril) 10 MG tablet Start: 09-30-2021 End: 10-05-2021 cyclobenzaprine 10 mg oral t ablet Dose : 10 mg = 1 tab(s), Oral, TID, X 5 day(s), # 20 tab(s), 0 Refill(s), 10/05/21 11:01:00 EST, Chest pain Start Date: 09/30/21 Stop Date: 10/05/21 Status: Ordered dextromethorphan hydrobromide 2 mg/ml / guaiFENesin 20 mg/ml oral suspension (1 source) Uncompetitive J-bsvmrt-O-aspartate Receptor Antagonist, Sigma-1 Agonist Start: 01-22-2022 guaiFENesin-dextromethorphan (ROBITUSSIN DM) 100-10 MG/5ML syrup 5 mL doxycycline hyclate 100 mg oral capsule (1 source) Tetracycline-class Drug Start: 02-05-2023 End: 02-12-2023 doxycycline hyclate 100 mg oral capsule Dose : 100 mg = 1 cap(s), Oral, BID, Take with at least 8 oz of water and sit up for at least 30 minutes after taking, X 7 day(s), # 14 cap(s), 0 Refill(s), 02/12/23 13:26:00 EDT, 75.4 Start Date: 02/05/23 Stop Date: 02/12/23 Status: Ordered escitalopram 10 mg oral tablet (20 sources) Serotonin Reuptake Inhibitor Start: 12-27-2024 End: 06-25-2025 take 1 tablet by mouth once daily escitalopram (Lexapro) 10 MG tablet Indications: Moderate episode of recurrent major depressive disorder (HCC) Take 1 tablet (10 mg) by mouth daily. 30 tablet 5 12/27/2024 06/25/2025 Active Start: 12-26-2022 End: 01-25-2024 take 1 tablet by mouth once daily escitalopram (Lexapro) 10 MG tablet Indications: Depression with anxiety Take 1 tablet (10 mg) by mouth daily. 30 tablet 5 12/26/2022 01/25/2024 Discontinued FLUoxetine 20 mg oral tablet (1 source) Serotonin Reuptake Inhibitor Start: 03-17-2022 take 1 tablet by mouth once daily FLUoxetine (PROZAC) 20 MG tablet Indications: Anxiety , Panic attacks Take 1 tablet by mouth daily 30 tablet 0 03/17/2022 Active hydrOXYzine pamoate 25 mg oral capsule (1 source) Antihistamine Start: 09-30-2021 take 1 capsule by mouth three times daily as needed for anxiety hydrOXYzine (VISTARIL) 25 MG capsule TAKE 1 CAPSULE BY MOUTH 3 TIMES DAILY NEEDED FOR ANXIETY. 0 09/30/2021 Active hyoscyamine sulfate 0.125 mg sublingual tablet (1 source) Start: 02-05-2023 End: 02-10-2023 Levsin SL 0.125 mg sublingual tablet Dose : 0.25 mg = 2 tab(s), Sublingual, q6hr, PRN abdominal discomfort, # 40 tab(s), 0 Refill(s), Abdominal pain Start Date: 02/05/23 Stop Date: 02/10/23 Status: Ordered levothyroxine sodium 0.125 mg oral tablet (20 sources) l-Thyroxine Start: 09-09-2022 End: 09-28-2024 levothyroxine (Synthroid, Levoxyl) 125 MCG tablet Indications: Postsurgical hypothyroidism 1 tablet daily 90 tablet 1 09/28/2024 Active Start: 05-08-2022 levothyroxine (SYNTHROID) 100 mcg tablet Take 125 mcg by mouth once daily. 0 05/08/2022 Active Start: 05-08-2022 End: 09-09-2022 take 1 tablet by mouth once daily levothyroxine (SYNTHROID) 100 mcg tablet Take 100 mcg by mouth once daily. 0 05/08/2022 Active Comment on above: Take 100 mcg by mout h once daily. Take 125 mcg by mout h once daily. LORazepam 0.5 mg oral tablet (6 sources) Benzodiazepine Start: 2 End: 2 take 1 tablet by mouth every eight hours as needed for anxiety LORazepam (ATIVAN) 0.5 MG tablet TAKE 1 TABLET BY MOUTH EVERY 8 HOURS NEEDED FOR ANXIETY FOR UP TO 10 DOSES. 0 03/26/2022 Active Start: 03-13-2022 End: 03-13-2022 LORazepam (ATIVAN) tablet 1 mg Start: 01-22-2022 End: 01-22-2022 LORazepam (ATIVAN) injection 0.5 mg Start: 03-11-2019 End: 06-29-2019 LORazepam (ATIVAN) 1 MG tabl et Indications: Anxiety Take 1 tablet by mouth as needed for Anxiety. 10 tablet 0 03/11/2019 06/29/2019 Discontinued (LIST CLEANUP) morphine sulfate (PF) injection 2 mg (1 source) Start: 01-22-2022 morphine sulfa te (PF) injection 2 mg ondansetron 4 mg disintegrating oral tablet (9 sources) Serotonin-3 Receptor Antagonist Start: 02-03-2023 take 4 mg by mouth every eight hours Ondansetron Active 4 MG PO Q8H 15 5 February 03, 2023 12:00am Start: 11-10-2022 End: 11-17-2022 take 1 tablet by mouth every eight hours as needed for nausea and vomiting ondansetron ODT (Zofran-ODT) 4 MG disintegrating tablet Take 1 tablet (4 mg) by mouth every 8 hours as needed for nausea or vomiting for up to 7 days. 20 tablet 0 11/10/2022 11/17/2022 Active Start: 06-30-2022 End: 06-30-2022 ondansetron (ZOFRAN) injecti on 4 mg Start: 01-23-2022 End: 08-08-2022 take 1 tablet by mouth every eight hours as needed for nausea and vomiting ondansetron ODT (Zofran-ODT) 4 MG disintegrating tablet Take 1 tablet (4 mg) by mouth every 8 hours as needed for nausea or vomiting for up to 7 days. 20 tablet 0 08/01/2022 08/08/2022 Start: 01-23-2022 take 1 tablet by flora three times daily as needed for nausea ondansetron (ZOFRAN-ODT) 4 MG disintegrating tablet Take 1 tablet by mouth 3 times daily as needed for Nausea or Vomiting 21 tablet 0 01/23/2022 Active oxyCODONE hydrochloride 5 mg oral tablet (19 sources) Opioid Agonist Start: 08-01-2022 End: 08-31-2022 take 1 tablet by mouth every six hours as needed for pain oxyCODONE (Roxicodone) 5 MG immediate release tablet Indications: Closed fracture of multiple ribs of both sides, initial encounter , Other closed fracture of proximal end of left tibia, initial encounter Take 1 tablet (5 mg) by mouth every 6 hours as needed for severe pain (7-10) for up to 5 days. 20 tablet 0 08/26/2022 08/31/2022 Active Start: 06-30-2022 End: 07-15-2022 oxyCODONE (ROXICODONE) 5 MG immediate release tablet Indications: Closed fracture of multiple ribs of both sides, initial encounter Take 1 (one) tablet (5 mg total) by mouth every 6 (six) hours as needed (Days supply per fill: 7) . 12 tablet 0 07/08/2022 07/15/2022 Active Start: 01-22-2022 oxyCODONE (AKHIL ICODONE) immediate release tablet 5 mg take 5 mg by mouth f our times daily oxycodone HCl (OXYCODONE ORAL) Take 5 mg by mouth four times daily. 0 Active Comment on above: Take 5 mg by mouth f our times daily. sodium chloride flush 0.9 % injection 3 mL (2 sources) Start: 08-03-2021 sodium chloride flush 0.9 % injection 3 mL Start: 06-29-2019 sodium chlorid e flush 0.9 % injection 3 mL sulfamethoxazole 800 mg / trimethoprim 160 mg oral tablet (2 sources) Dihydrofolate Reductase Inhibitor Antibacterial, Sulfonamide Antimicrobial Start: 02-03-2023 take 1 tablet by mouth twice daily Sulfamethoxazole-Trimethoprim (Bactrim Ds) 800-160 mg tablet Active 1 TABLET PO TWICE A DAY 14 February 03, 2023 12:00am Start: 11-06-2021 End: 11-16-2021 take 1 tablet by mouth twice daily sulfamethoxazole-trimethoprim (BACTRIM D S) 800-160 MG per tablet Indications: Abscess of right genital labia Take 1 tablet by mouth 2 times daily for 10 days 20 tablet 0 11/06/2021 11/16/2021 Active SUMAtriptan 50 mg oral tablet (7 sources) Serotonin-1b and Serotonin-1d Receptor Agonist Start: 08-26-2021 take 1 tablet by mouth once as needed SUMAtriptan (IMITREX) 50 MG tablet Indications: Chronic migraine without aura without status migrainosus, not intractable Take 1 tablet by mouth once as needed for Migraine 9 tablet 3 08/26/2021 Active End: 08-04-2022 SUMAtriptan (Imitrex) 50 MG tablet Take 50 mg by mouth. 0 08/01/2022 Discontinued (Therapy completed) Comment on above: Take 50 mg by mouth as needed for migraine headache (see administration instructions). Completed/Discontinued Medications Medication Drug Class(es) Dates Sig (Normalized) Sig (Original) acetaminophen 500 mg oral tablet (18 sources) Start: 05-28-2023 End: 05-28-2023 acetaminophen (Tylenol) tablet 1,000 mg Start: 07-08-2022 End: 07-18-2022 take 3 tablets by mouth every six hours acetaminophen (TYLENOL) 325 MG tablet Take 3 (three) tablets (975 mg total) by mouth every 6 (six) hours for 10 days . 30 tablet 0 07/08/2022 07/18/2022 Active Start: 07-01-2022 End: 07-08-2022 acetaminophen (TYLENOL) tabl et 975 mg Start: 01-22-2022 take 650 mg by mouth every four hours for pain 650 mg, Oral, EVERY 4 HOURS PRN, Starting on Thu01/22/22 at 1525, Until Discontinued, Other, Pain (1-10) Give in addition to any other pain medication ordered at same time for any pain indication. Post-op Start: 01-22-2022 End: 01-22-2022 acetaminophen (TYLENOL) tabl et 1,000 mg Start: 09-03-2021 End: 09-05-2022 take 325-650 mg by mouth every six hours as needed acetaminophen (TYLENOL) 325 mg tablet Take 1-2 tablets by mouth every 6 hours as needed for pain (Headache). 0 09/03/2021 09/05/2022 Discontinued Comment on above: Take 1-2 tablets by mouth every 6 hours as needed for pain (Headache). acetaminophen 325 mg / HYDROcodone bitartrate 5 mg oral tablet (2 sources) Opioid Agonist Start: 03-14-2020 End: 03-14-2020 HYDROcodone-acetami nophen (NORCO) 5-325 MG per tablet 1 tablet Start: 03-13-2020 End: 03-13-2020 HYDROcodone-acetaminophen (N ORCO) 5-325 MG per tablet 1 tablet acetaminophen 325 mg / oxyCODONE hydrochloride 5 mg oral tablet (20 sources) Opioid Agonist Start: 09-03-2022 End: 12-26-2022 take 1 tablet by mouth every six hours as needed oxyCODONE-acetaminophen (Percocet) 5-325 MG tablet Take 1 tablet by mouth every 6 hours as needed. 0 09/03/2022 12/26/2022 Discontinued Start: 01-23-2022 End: 01-28-2022 oxyCODONE-acetaminophen (PER COCET) 5-325 MG per tablet Indications: Post-op pain , S/P partial thyroidectomy Take 1 tablet by mouth every 6 hours as needed for Pain for up to 5 days. Intended supply: 5 days. Take lowest dose possible to manage pain 20 tablet 0 01/23/2022 01/28/2022 Active Start: 08-03-2021 End: 08-03-2021 oxyCODONE-acetaminophen (PER COCET) 5-325 MG per tablet 1 tablet End: 01-25-2024 oxyCODONE-acetaminophen (Per cocet) 5-325 MG tablet 01/25/2024 Discontinued Comment on above: Take 1 tablet by flora th every 6 hours as needed for pain for up to 3 days. Take 1 tablet by flora th every 6 hours as needed for pain for up to 7 days. Take 1 tablet by flora th every 6 hours as needed for pain for up to 7 days. Do not start before November 25, 2022. [id number] 200 actuat albuterol 0.09 mg/actuat metered dose inhaler (20 sources) beta2-Adrenergic Agonist Start: End: take 2 puff(s) by inhalation every four hours as needed for wheezing albuterol 108 (90 Base) MCG/ACT inhaler Inhale 2 puffs every 4 hours as needed for wheezing. 18 g 05/28/2023 01/25/2024 Discontinued Start: 04-08-2022 End: 01-25-2024 take 2 puff(s) by inhalation every six hours as needed albuterol 108 (90 Base) MCG/ACT inhaler Inhale 2 puffs every 6 hours as needed. 04/08/2022 01/25/2024 Discontinued Start: 03-17-2022 take 2 puff(s) by in halation every six hours as needed for wheezing albuterol sulfate HFA (PROAIR HFA) 108 (90 Base) MCG/ACT inhaler Indications: Mild intermittent asthma without complication Inhale 2 puffs into the lungs every 6 hours as needed for Wheezing or Shortness of Breath 18 g 0 03/17/2022 Active albuterol 0.833 mg/ml / ipratropium bromide 0.167 mg/ml inhalation solution (2 sources) Anticholinergic, beta2-Adrenergic Agonist Start: 05-28-2023 End: 05-28-2023 ipratropium-albuterol (Duo-Neb) 0.5-2.5 mg/3 mL nebulizer solution 3 mL ALPRAZolam 0.25 mg disintegrating oral tablet (1 source) Benzodiazepine Start: 01-22-2022 End: 01-22-2022 ALPRAZolam (NIRAVAM) dissolvable tablet 0.25 mg aspirin 81 mg chewable tablet (13 sources) Platelet Aggregation Inhibitor, Nonsteroidal Anti-inflammatory Drug Start: 09-24-2023 End: 05-05-2024 Aspirin Low Dose 81 MG chewable tablet Chew 81 mg daily. 09/24/2023 05/05/2024 Discontinued atomoxetine 60 mg oral capsule (20 sources) Norepinephrine Reuptake Inhibitor Start: 04-23-2023 End: 01-25-2024 take 1 capsule by mouth once daily in the morning atomoxetine (Strattera) 60 MG capsule Take 60 mg by mouth every morning. 04/23/2023 01/25/2024 Discontinued azithromycin 250 mg oral tablet (1 source) Macrolide Antimicrobial Start: 03-14-2020 End: 03-14-2020 azithromycin (ZITHROMAX) tablet 1,000 mg bisacodyl 10 mg rectal suppository (1 source) Stimulant Laxative Start: 07-04-2022 End: 07-08-2022 bisacodyL (DULCOLAX) suppository 10 mg busPIRone hydrochloride 15 mg oral tablet (20 sources) Start: 12-26-2022 End: 05-07-2023 take 1 tablet by mouth three times daily busPIRone (Buspar) 15 MG tablet Indications: Depression with anxiety Take 1 tablet (15 mg) by mouth 3 times daily. 90 tablet 11 12/26/2022 05/07/2023 Discontinued Start: 07-22-2022 End: 12-26-2022 take 1 tablet by mouth three times daily busPIRone (Buspar) 10 MG tablet Indications: Generalized anxiety disorder TAKE 1 TABLET BY MOUTH THREE TIMES A DAY 270 tablet 1 07/22/2022 12/26/2022 Discontinued Start: 07-01-2022 End: 07-08-2022 take 10 mg by mouth three times daily 10 mg, Oral, 3 times daily, First dose on Thu07/01/22 at 1100 Start: 03-26-2022 End: 04-25-2022 take 1 tablet by mouth three times daily busPIRone (BUSPAR) 10 MG tablet Take 1 (one) tablet (10 mg total) by mouth 3 (three) times a day . 0 04/22/2022 Comment on above: Take 10 mg by mouth three times daily. ceFAZolin 2000 mg injection (3 sources) Cephalosporin Antibacterial Start: 07-01-20 End: 07-01-20 take 2000 mg intravenously every eight hours 2,000 mg, Intravenous, at 100 mL/hr, Every 8 hours, First dose on Thu07/01/22 at 0200, For 2 doses Starting 8 hours after pre-procedure dose x 2 doses. Indication (POST PROCEDURE): Ortho Start: 06-30-2022 End: 06-30-2022 ceFAZolin (ANCEF) IVPB 2 g ( premix) Start: 01-22-2022 End: 01-22-2022 ceFAZolin (ANCEF) 2000 mg in dextrose 4 % 100 mL IVPB (premix) cefTRIAXone 250 mg injection (1 source) Cephalosporin Antibacterial Start: 03-14-2020 End: 03-14-2020 cefTRIAXone (ROCEPHIN) injection 250 mg celecoxib 400 mg oral capsule (1 source) Nonsteroidal Anti-inflammatory Drug Start: 01-22-2022 End: 01-22-2022 celecoxib (CELEBREX) capsule 400 mg Start: 01-22-2022 End: 01-22-2022 celecoxib (CELEBREX) capsule 400 mg cholecalciferol 0.05 mg oral capsule (20 sources) Vitamin D Start: 11-18-2022 End: 05-07-2023 take 1 capsule by mouth once daily cholecalciferol (Vitamin D-3) 50 MCG (2000 UT) capsule Take 1 capsule (50 mcg) by mouth daily. 90 capsule 3 11/18/2022 05/07/2023 Discontinued Start: 09-09-2022 cholecalcifero l, Vitamin D3, (VITAMIN D3) 1,250 mcg (50,000 unit) cap capsule Take 1 capsule by mouth. 0 09/09/2022 Active Start: 09-09-2022 End: 11-18-2022 take 1 capsule by mouth every week cholecalciferol (Vitamin D-3) 1.25 MG (02997 UT) capsule Take 1 capsule (1.25 mg) by mouth 1 (one) time per week. 4 capsule 0 11/12/2022 11/18/2022 Discontinued take 1 capsule by [facility] once daily Cholecalciferol (Vitamin D) 125 MCG (5000 UT) capsule Take 1 capsule by mouth daily. Active Comment on above: Take [address] [facility]. 1 ml diphenhydrAMINE hydrochloride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 use: Yes Drug use: Yes Alcohol use: No Multivitamin with Folic acid: Yes Jain or heritage: No Would refuse blood transfusion if medically necessary: No ABO/RH(D) Date Value Ref Range Status 05/04/2015 A POSITIVE Final Social Needs: How often does this describe you? I don't have enough money to pay my bills: Never Within the past 12 months, have you worried that your food would run out before you had money to buy more? Never In the past 12 months, has lack of reliable transportation kept you from going to medical appointments or work, or from getting things needed for daily living? Never In the past 12 months, have you had any concerns about having a place to live, or about the condition or quality of your housing? Never Would you like more information on any of the following (please check all that apply)? 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 Yes Do you have a history of abuse or trauma that may impact your experience? No Are you currently employed? No Depression/Anxiety Screening: denies symptoms of depression. OB Depression and Anxiety Screening- This Encounter (since 08/27/2023) Over the past 2 weeks have you felt down, depressed, or hopeless? Negative Over the past two weeks, have you felt little interest or pleasure in doing things?? Negative Feeling nervous, anxious or on edge 0-Not at all Not being able to stop or control worrying 0-Not al all Anxiety Pre-Screening Total (If >/= 3 additional questions will be reviewed) 0 ACOG Recommended Screening: Screening for early gestational diabetes testing: Criteria (more content not included)... Normal [facility] CNTHERAPYon 11-20-2023 CNTHERAPY OT/PT/Speech Visit (AKPTB) RANI FORDE ([id number]) 1990 F Date Time Provider Department 11/20/23 1:30 PM ANTHONY EVANS Date Time Provider Department Center 11/20/2023 1:30 PM [id number] Reason for Visit: Physical Therapy [503] Primary Visit Diagnosis:Back pain affecting in second trimester [O99.891, M54.9] Other Visit Diagnosis:Muscle weakness [M62.81] Allergies As of Date: 11/20/2023 Noted Allergy Reaction ADHESIVE 10/12/2014 2 - Rash CHOCOLATE 04/29/2015 7 - Swelling CYMBALTA (DULOXETINE) 11/13/2022 1 - Mental Status Change Comments: Increased depression GABAPENTIN 04/30/2023 1 - Mental Status Change LATEX 04/29/2015 9 - Itching TOPAMAX (TOPIRAMATE) 04/30/2023 14 - Other: See Comments Comments: seizures Date Reviewed: 11/20/2023 Reviewed by: Sowmya Portillo MD - Fully Assessed Prescriptions as of 11/20/2023 - albuterol HFA (PROAIR HFA) 90 mcg/actuation inhaler Inhale 2 Puffs as instructed every 6 hours as needed for wheezing/shortness of breath. - aspirin (CHILDRENS ASPIRIN) 81 mg chewable tablet Take 1 tablet by mouth once daily. - cholecalciferol, Vitamin D3, (VITAMIN D3) 1,250 mcg (50,000 unit) cap capsule Take 1 capsule by mouth. - calcitriol (ROCALTROL) 0.5 mcg capsule Take 0.5 mcg by mouth once daily. - levothyroxine (SYNTHROID) 100 mcg tablet Take 125 mcg by mouth once daily. Additional Progress Notes VISIT DATE: 08/28/2023 GA: 11w -------- Rocco Naidu LPN 08/28/2023 9:51 AM Signed Movement? Too early Vaginal Bleeding: YES/MD NOTIFIED NO Vaginal fluid leakage of fluid: YES/MD NOTIFIED NO Contractions: no contractions Edema: Negative YARY Dang Vickie L, APRN.APPARATUS CLEANER 08/28/2023 10:35 AM Signed INITIAL OB ASSESSMENT HPI: Rani is a 33 year old White Female here to establish Obstetrical Care. Patient's last menstrual period was 06/09/2023. from OB Dating Form. Do you have regular periods/menstrual cycles? Yes was planned Complaints: (!) Abdominal pain OB History T1 L1 SAB0 IAB0 Ectopic0 Multiple0 Live Births1 How many pregnancies have you had before? 1 Have you had a prior srivastava between 20w and 36w6d? No Did you present in active spontaneous labor or have ruptured membranes, or advanced cervical dilation (greater than or equal to 4 cm) or effacement? No Did you have a previous baby with a GBS Infection? No Please select all that apply for any prior : N/A Did you have a partner with Herpes? No Prior : No History of 4th degree laceration: No Patient's Risk Screening for delivery: MEDICAL/PSYCHOSOCIAL HISTORY: History of hemorrhage or bleeding concerns: No Thyroid Disease: Yes History of chronic hypertension: No History of pre-existing diabetes: No BMI 31.90 kg/(m2) History of abnormal pap: No Prior treatment for cervical dysplasia: none. History of STDs: N/A Tobacco use: No E-Cigarette/Vaping Use: Yes Caffeine use: Yes Drug use: Yes Alcohol use: No Multivitamin with Folic acid: Yes Jain or heritage: No Would refuse blood transfusion if medically necessary: No ABO/RH(D) Date Value Ref Range Status 05/04/2015 A POSITIVE Final Social Needs: How often does this describe you? I don't have enough money to pay my bills: Never Within the past 12 months, have you worried that your food would run out before you had money to buy more? Never In the past 12 months, has lack of reliable transportation kept you from going to medical appointments or work, or from getting things needed for daily living? Never In the past 12 months, have you had any concerns about having a place to live, or about the condition or quality of your housing? Never Would you like more information on any of the following (please check all that apply)? 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 Yes Do you have a history of abuse or trauma that may impact your experience? No Are you currently employed? No Depression/Anxiety Screening: denies symptoms of depression. OB Depression and Anxiety Screening- This Encounter (since 08/27/2023) Over the past 2 weeks have you felt down, depressed, or hopeless? Negative Over the past two weeks, have you felt little interest or pleasure in doing things?? Negative Feeling nervous, anxious or on edge 0-Not at all Not being able to stop or control worrying 0-Not al all Anxiety Pre-Screening Total (If >/= 3 additional questions will be reviewed) 0 ACOG Recommended Screening: Screening for early gestational diabetes testing: Criteria for early testing requires elevated BMI plus one other risk (more content not included)... Normal [facility] HIGH RISK HUMAN PAPILLOMA TARA (HPV), PCR FOR DETECTION AND GENOTYPINGon 11-20-2023 HPV 16 Ag Ql (Unsp spec) Negative Normal Negative for HPV DNA high risk type 16 by PCR [facility] Comment on above: Order Comment: Speci men Type: BLOOD SPECIMEN Ordering Facility: [facility] Address: [address] [place] [address] Performed By: #### 2 4323-8, 3039-3, 1798-02 #### [facility] CLIA [id number] [address] OF [place] HPV 18 Ag Ql (Unsp spec) Negative Normal Negative for HPV DNA high risk type 18 by PCR [facility] Comment on above: Order Comment: Speci men Type: BLOOD SPECIMEN Ordering Facility: [facility] Address: [address] [place] [address] Performed By: #### 2 4323-8, 3, 1798-02 #### [facility] CLIA [id number] [address] OF [facility] HPV 31+33+35+39+45+51+52+5 6+58+59+66+68 DNA CLIFFORD+probe Ql (Cvx) Negative for HPV DNA high risk types: 31,33,35,39,45,51,52,5 6,58,59,66,68 by PCR. Normal Negative for HPV DNA high risk types: 31,33,35,39,45 ,51,52,56,58,5 9,66,68 by PCR. [facility] Comment on above: Order Comment: Speci men Type: BLOOD SPECIMEN Ordering Facility: [facility] Address: [address] [place] [address] Performed By: #### 2 3-8, 3, 1798-02 #### [facility] CLIA [id number] [address] OF [place] PAP TESTon 11-20-2023 ADEQUACY Normal [facility] Comment on above: Order Comment: Speci men Type: BLOOD SPECIMEN Ordering Facility: [facility] Address: [address] [place] [address] Result Comment: Sati sfactory for interpretation. No endocervical component Performed By: #### 2 4323-8, 3039-3, 1798-02 #### [facility] CLIA [id number] [address] [place] CASE REPORT Normal [facility] Comment on above: Order Comment: Speci men Type: BLOOD SPECIMEN Ordering Facility: [facility] Address: [address] [place] [address] Result Comment: Gyne cologic Cytology Report Case: [id number] Authorizing Provider: Sowmya Portillo MD Collected: 11/20/2023 10:27 AM Ordering Location: [facility] Received: 11/23/2023 04:43 AM General Obstetrics and Gynecology First Screen: Devi Lerner, CT, ASCP Pathologist: Linn Ron MD Specimen: Pap Test, ThinPrep, Cervix Performed By: #### 2 4323-8, 3040-3, 8 #### [facility] CLIA [id number] [address] [place] [address] OF [facility] CLINICAL HISTORY, CYTOLOGY, PRINCIPAL SECURITY ARCHITECT Routine Exam Normal [facility] Comment on above: Order Comment: Speci men Type: BLOOD SPECIMEN Ordering Facility: [facility] Address: [address] [place] [address] Performed By: #### 2 4323-8, 3040-3, 8 #### [facility] CLIA [id number] [address] [place] [address] OF [facility] FINAL PERFORMING LAB Normal [facility] Comment on above: Order Comment: Speci men Type: BLOOD SPECIMEN Ordering Facility: [facility] Address: [address] [place] [address] Result Comment: Tech nical component, well cleaner screening performed at [facility], [address] [place] [address] CLIA# [id number] Diagnostic interpretation performed at [facility], [address] [place] [address] CLIA# [id number] Rn Recruitment: Naresh Hunt M.D. Performed By: #### 2 4323-8, 3040-3, 1797-8 #### [facility] CLIA [id number] [address] [place] [address] OF [place] HPV REFLEX Yes HPV Normal [facility] Comment on above: Order Comment: Speci men Type: BLOOD SPECIMEN Ordering Facility: [facility] Address: [address] [place] [address] Performed By: #### 2 4323-8, 0-3, 8 #### [facility] CLIA [id number] [address] STATES [place] INTERPRETATION, CYTOLOGY, PRINCIPAL SECURITY ARCHITECT Normal [facility] Comment on above: Order Comment: Speci men Type: BLOOD SPECIMEN Ordering Facility: [facility] Address: [address] [place] [address] Result Comment: Nega tive for intraepithelial lesion or malignancy. Performed By: #### 2 4323-8, 3039-3, 8 #### [facility] CLIA [id number] [address] [place] 06/09/2023 Normal [facility] Comment on above: Order Comment: Speci men Type: BLOOD SPECIMEN Ordering Facility: [facility] Address: [address] [place] [address] Performed By: #### 2 4323-8, 3039-3, 1798-02 #### [facility] CLIA [id number] [address] PAP DISCLAIMER COMMENT The Pap Smear is a screening test for cervical cancer. False negative results occur with all screening tests, emphasizing the need for rescreening at recommended intervals, and clinical correlation. Normal [facility] Comment on above: Order Comment: Speci men Type: BLOOD SPECIMEN Ordering Facility: [facility] Address: [address] [place] [address] Performed By: #### 2 4323-8, 3039-3, 1798-02 #### [facility] CLIA [id number] [address] STATES [place] THERAPY NTon 11-20-2023 THERAPY NT HNO ID: [id number] Author: ANTHONY EVANS, PT Service: ? Author Type: Physical Therapist Type: Therapy (PT/OT/Speech/Resp) Filed: 11/20/2023 13:46 Note Text: Program_ID:[id number] Access Code: [email or web address] URL: [email or web address] Date: 11-20-2023 Prepared By: Anthony Program Notes Exercises - Cat Cow - 1 x daily - x weekly - 3 sets - 10 reps - Child's Pose Stretch - 1 x daily - x weekly - 3 sets - reps - Tail Wag - 1 x daily - x weekly - 3 sets - 10 reps - Seated Transversus Abdominis Bracing - 1 x daily - x weekly - 3 sets - 10 reps - Seated Diaphragmatic Breathing - 1 x daily - x weekly - sets - reps - Seated Piriformis Stretch - 1 x daily - x weekly - 3 sets - reps - Seated Hamstring Stretch - 1 x daily - x weekly - 3 sets - reps - Standing Hip Flexor Stretch - 1 x daily - x weekly - 3 sets - reps - TL Sidebending Stretch - Single Arm Overhead - 1 x daily - x weekly - 3 sets - reps - Seated Pelvic Tilt - 1 x daily - x weekly - 3 sets - 10 reps Patient Education - cc Bed Mobility and Body Mechanics Normal [facility] 25-hydroxyvitamin D3 [Mass/V ol]on 11-10-2023 Interpretation and review of laboratory results Normal [facility] Therapy is based on measurement of Total 25-OHD with the following classification levels: Less than 20 ng/mL: Indicative of Vit D deficiency 20-30 ng/mL: Suggests Vit D insufficiency Optimal: Greater than or equal to 30 ng/mL Test performed by [facility] Competitive Immunoassay, measuring Total Vitamin D, not individual fractions. [facility] Comprehensive metabolic 1998 panelon 11-10-2023 Albumin [Mass/Vol] 3.2 g/dL Low 3.5 - 5.0 g/dL [facility] ALP [Catalytic activity/Vol] 57 U/L 38 - 126 U/L [facility] ALT [Catalytic activity/Vol] 13 U/L 0 - 34 U/L [facility] Anion gap [Moles/Vol] 7 mmol/L 3 - 13 mmol/L [facility] AST [Catalytic activity/Vol] 20 U/L 15 - 46 U/L [facility] Bilirubin [Mass/Vol] 0.2 mg/dL 0.2 - 1 .3 mg/dL [facility] Calcium [Mass/Vol] 8.0 mg/dL Low 8.4 - 10. 4 mg/dL [facility] Chloride [Moles/Vol] 104 mmol/L 98 - 10 7 mmol/L [facility] CO2 [Moles/Vol] 24 mmol/L 22 - 30 mmol/L [facility] Creatinine [Mass/Vol] 0.65 mg/dL 0.52 - 1.04 mg/dL [facility] GFR/1.73 sq M.predicted MDRD (S/P/Bld) [Vol rate/Area] - PINF [facility] Comment on above: Calculation based on the Chronic Kidney Disease Epidemiology Collaboration (CKD-EPI) equation refit without adjustment for race Glucose [Mass/Vol] 94 mg/dL 70 - 100 mg/dL [facility] Interpretation and review of laboratory results Abnormal [facility] Potassium [Moles/Vol] 3.9 mmol/L 3.5 - 5.1 mmol/L [facility] Protein [Mass/Vol] 6.6 g/dL 6.3 - 8.2 g/dL [facility] Sodium [Moles/Vol] 136 mmol/L 135 - 145 mmol/L [facility] Urea nitrogen [Mass/Vol] 9 mg/dL 7 - 17 mg/dL [facility] Free T4 [Mass/Vol]on 024 Free T4 Dialysis [Mass/Vol] 1.38 ng/dL 0.78 - 2.19 ng/dL [facility] Interpretation and review of laboratory results Normal [facility] Laboratory - Chemistry and C hemistry - challengeon 11-10-2023 25-hydroxyvitamin D3 [Mass/Vol] 36 ng/mL 30 - 100 ng/mL [facility] Parathyrin.intact [Mass/Vol] 9.5 pg/mL 7.5 - 53.5 pg/mL [facility] TSH Qn 0.388 m[IU]/L Low [facility] Magnesium [Mass/Vol] 1.8 mg/dL 1.6 - 2 .3 mg/dL [facility] No Panel Informationon 11-09 Interpretation and review of laboratory results Normal [facility] Parathyrin.intact [Mass/Vol] on 11-10-2023 Interpretation and review of laboratory results Normal [facility] Phosphate [Moles/Vol]on 10-25 Phosphate [Mass/Vol] 3.9 mg/dL 2.5 - 4 .5 mg/dL [facility] TSH Qnon 11-10-2023 Interpretation and review of laboratory results Abnormal [facility] [id number] 11-06-2023 [id number] HNO ID: [id number] Author: ANTHONY EVANS, JEANNIE Service: ? Author Type: Physical Therapist Type: [id number] Filed: 11/06/2023 12:31 Note Text: 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 The identified Physical Therapy PLAN OF CARE for the patient is as follows: O99.891, M54.9 Back pain affecting in second trimester (primary encounter diagnosis) M62.81 Muscle weakness PLAN OF CARE: Assessment: Rani Forde presents with chief complaint of back pain during that interferes with walking, bending, bed mobility, physical activities . She presents with impairments in decreased core strength, impaired bladder and sexual function. PROMIS? (Patient-Reported Outcomes Measurement Information System) scores were reviewed and identified as a rehabilitation concern. Prognosis for therapy is Good due to: current objective clinical presentation . She will benefit from skilled therapy services to meet the goals established for this plan of care as noted below. Goals for Episode of Care: created on 11/06/23 through 01/05/24 [place] in home exercise program. Patient will demonstrate increase in core strength to at least 4/5 during manual muscle testing in order to improve function for prior functional tasks. Patient reports at least 85% improvement in bladder leaks while coughing/sneezing compared to evaluation in order to increase bladder function in activities of daily living. Patient to report at least 85% improvement in pain with sexual intercourse. Patient reports at least 85% improvement in back pain compared to IE to improve ability to perform ADLs during . Patient Goals: improve back pain Planned Interventions, Frequency, and Duration: Current Frequency: 1x every other week Duration: 4 weeks (reassess at 4 weeks and progress as indicated) Total Number of Visits Planned: 2 Planned Treatment Interventions: Therapeutic exercise (97169), Manual therapy (80172), Self-senior living management (72644), Patient/Family/Caregiv er Education PLAN FOR NEXT VISIT: progress gentle core stabilization exercises, discuss perineal massage, discuss pushing mechanics Patient demonstrates good understanding of plan of care and treatment. The above goals and plan of care were discussed and agreed upon by patient/family. For further details regarding this patient refer to the Physical Therapy electronically documented visit dated 11/06/2023. Provider Attestation I have reviewed the treatment plan for Rani Forde, [facility]# [id number] for the period of 11/06/23 -- 01/05/24, established on 11/06/2023. Signature certifies the need for therapy services. Normal [facility] CNTHERAPYon 11-06-2023 CNTHERAPY OT/PT/Speech Visit (AKPTB) RANI FORDE ([id number]) 1990 F Date Time Provider Department 11/06/23 12:00 PM ANTHONY EVANS AKPT[facility] Date Time Provider Department Center 11/06/2023 12:00 [id number] Reason for Visit: PT Eval [747] Primary Visit Diagnosis:Back pain affecting in second trimester [O99.891, M54.9] Other Visit Diagnosis:Muscle weakness [M62.81] Allergies As of Date: 11/06/2023 Noted Allergy Reaction ADHESIVE 10/12/2014 2 - Rash CHOCOLATE 04/29/2015 7 - Swelling CYMBALTA (DULOXETINE) 11/13/2022 1 - Mental Status Change Comments: Increased depression GABAPENTIN 04/30/2023 1 - Mental Status Change LATEX 04/29/2015 9 - Itching TOPAMAX (TOPIRAMATE) 04/30/2023 14 - Other: See Comments Comments: seizures Date Reviewed: 10/23/2023 Reviewed by: Alverto Hedrick APRN.CNP - Fully Assessed Prescriptions as of 11/06/2023 - albuterol HFA (PROAIR HFA) 90 mcg/actuation inhaler Inhale 2 Puffs as instructed every 6 hours as needed for wheezing/shortness of breath. - aspirin (CHILDRENS ASPIRIN) 81 mg chewable tablet Take 1 tablet by mouth once daily. - cholecalciferol, Vitamin D3, (VITAMIN D3) 1,250 mcg (50,000 unit) cap capsule Take 1 capsule by mouth. - calcitriol (ROCALTROL) 0.5 mcg capsule Take 0.5 mcg by mouth once daily. - levothyroxine (SYNTHROID) 100 mcg tablet Take 125 mcg by mouth once daily. Additional Progress Notes VISIT DATE: 08/28/2023 GA: 11w -------- Rocco Naidu LPN 08/28/2023 9:51 AM Signed Movement? Too early Vaginal Bleeding: YES/MD NOTIFIED NO Vaginal fluid leakage of fluid: YES/MD NOTIFIED NO Contractions: no contractions Edema: Negative YARY Dang Vickie L, APRN.CNP 08/28/2023 10:35 AM Signed INITIAL OB ASSESSMENT HPI: Rani is a 33 year old White Female here to establish Obstetrical Care. Patient's last menstrual period was 06/09/2023. from OB Dating Form. Do you have regular periods/menstrual cycles? Yes was planned Complaints: (!) Abdominal pain OB History T1 L1 SAB0 IAB0 Ectopic0 Multiple0 Live Births1 How many pregnancies have you had before? 1 Have you had a prior srivastava between 20w and 36w6d? No Did you present in active spontaneous labor or have ruptured membranes, or advanced cervical dilation (greater than or equal to 4 cm) or effacement? No Did you have a previous baby with a GBS Infection? No Please select all that apply for any prior : N/A Did you have a partner with Herpes? No Prior : No History of 4th degree laceration: No Patient's Risk Screening for delivery: MEDICAL/PSYCHOSOCIAL HISTORY: History of hemorrhage or bleeding concerns: No Thyroid Disease: Yes History of chronic hypertension: No History of pre-existing diabetes: No BMI 31.90 kg/(m2) History of abnormal pap: No Prior treatment for cervical dysplasia: none. History of STDs: N/A Tobacco use: No E-Cigarette/Vaping Use: Yes Caffeine use: Yes Drug use: Yes Alcohol use: No Multivitamin with Folic acid: Yes Jain or heritage: No Would refuse blood transfusion if medically necessary: No ABO/RH(D) Date Value Ref Range Status 05/04/2015 A POSITIVE Final Social Needs: How often does this describe you? I don't have enough money to pay my bills: Never Within the past 12 months, have you worried that your food would run out before you had money to buy more? Never In the past 12 months, has lack of reliable transportation kept you from going to medical appointments or work, or from getting things needed for daily living? Never In the past 12 months, have you had any concerns about having a place to live, or about the condition or quality of your housing? Never Would you like more information on any of the following (please check all that apply)? 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 Yes Do you have a history of abuse or trauma that may impact your experience? No Are you currently employed? No Depression/Anxiety Screening: denies symptoms of depression. OB Depression and Anxiety Screening- This Encounter (since 08/27/2023) Over the past 2 weeks have you felt down, depressed, or hopeless? Negative Over the past two weeks, have you felt little interest or pleasure in doing things?? Negative Feeling nervous, anxious or on edge 0-Not at all Not being able to stop or control worrying 0-Not al all Anxiety Pre-Screening Total (If >/= 3 additional questions will be reviewed) 0 ACOG Recommended Screening: Screening for early gestational diabetes testing: Criteria for early testing requires elevated BMI plus one other risk fa (more content not included)... Normal [facility] THERAPY NTon 11-06-2023 THERAPY NT HNO ID: [id number] Author: ANTHONY EVANS, JEANNIE Service: ? Author Type: Physical Therapist Type: Therapy (PT/OT/Speech/Resp) Filed: 11/06/2023 12:03 Note Text: Program_ID:[id number] Access Code: [email or web address] URL: [email or web address] Date: 11-06-2023 Prepared By: Anthony Program Notes Exercises - Cat Cow - 1 x daily - x weekly - 3 sets - 10 reps - Child's Pose Stretch - 1 x daily - x weekly - 3 sets - reps - Tail Wag - 1 x daily - x weekly - 3 sets - 10 reps - Seated Transversus Abdominis Bracing - 1 x daily - x weekly - 3 sets - 10 reps - Seated Diaphragmatic Breathing - 1 x daily - x weekly - sets - reps Patient Education - cc Bed Mobility and Body Mechanics Normal [facility] ALPHA FETOPRO MATERNALon AFP, MATERNAL 0.97 MoM Normal [facility] Comment on above: Order Comment: Speci men Type: BLOOD SPECIMEN Ordering Facility: [facility] Address: [address] [place] [address] Result Comment: 45.7 3 ng/mL Performed By: #### A FPMAT #### [facility] CLIA [id number] [address] [place] [address] DATE OF COLLECTION #1 10/19/23 Normal [facility] Comment on above: Order Comment: Speci men Type: BLOOD SPECIMEN Ordering Facility: [facility] Address: [address] [place] [address] Performed By: #### A FPMAT #### [facility] CLIA [id number] [address] [place] [address] [place] DATE RECEIVED 10/20/23 Normal [facility] Comment on above: Order Comment: Speci men Type: BLOOD SPECIMEN Ordering Facility: [facility] Address: [address] [id number] Performed By: #### A FPMAT #### [facility] CLIA [id number] [address] [id number] [place] D[place] 03/13/24 Normal [facility] Comment on above: Order Comment: Speci men Type: BLOOD SPECIMEN Ordering Facility: [facility] Address: [address] [place] [address] Performed By: #### A FPMAT #### [facility] CLIA [id number] [address] [place] [address] [place] GESTATION AT DATE OF SAMPLE 19 weeks 1 days (by scan) Normal [facility] Comment on above: Order Comment: Speci men Type: BLOOD SPECIMEN Ordering Facility: [facility] Address: [address] [place] [address] Performed By: #### A FPMAT #### [facility] CLIA [id number] [address] [place] [address] [place] INSULIN DEPENDENT DIABETES None Normal [facility] Comment on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 [address] [place] [address] MCHC 33.3 % Normal 32.0-36.0 [facility] Comment on above: Performed By: #### B MP3M, HEMDF #### [facility] [address] [place] [address] MCV (RBC) [Entitic vol] 88.7 fL Normal 79.0-98.0 [facility] Comment on above: Performed By: #### B MP3M, HEMDF #### [facility] [address] [place] [address] Monocytes (Bld) [#/Vol] 0.6 10*3/uL Normal 0.0-0.8 [facility] Comment on above: Performed By: #### B MP3M, HEMDF #### [facility] [address] [place] [address] Monocytes/100 WBC (Bld) 5.3 % Normal 2.0-10.0 [facility] Comment on above: Performed By: #### B MP3M, HEMDF #### [facility] [address] [place] [address] Platelet mean volume (Bld) [Entitic vol] 9.0 fL Normal 7.4-12.4 [facility] Comment on above: Result Comment: MPV is a calculated measurement using platelet volume ratio. Performed By: #### B MP3M, HEMDF #### [facility] [address] [place] [address] Platelets (Bld) [#/Vol] 216 10*3/uL Normal 140-440 [facility] Comment on above: Performed By: #### B MP3M, HEMDF #### [facility] [address] [place] [address] RBC (Bld) [#/Vol] 3.70 10*6/uL Low 3.80-5.20 [facility] Comment on above: Performed By: #### B MP3M, HEMDF #### [facility] [address] [place] [address] WBC (Bld) [#/Vol] 11.9 10*3/uL High 3.6-10.7 [facility] Comment on above: Performed By: #### B MP3M, HEMDF #### [facility] [address] [place] [address] HCG,Urine Qualon 01-22-2022 Beta HCG ( test) Ql (U) Negative Normal Negative [facility] Comment on above: Result Comment: Plea se note: Very dilute urine specimens, as indicated by a low specific gravity, may not contain applications sales representative levels of hCG. If is still suspected, a first morning urine specimen should be collected 48 hours later and tested. is the most common reason for HCG in urine, although choriocarcinoma, hydatidiform mole, and certain nontropho- blastic malignancies also result in detectable urinary HCG levels. Sensitivity = 20mIU/mL. Performed By: #### H CGUR #### [facility] [address] [place] [address] OPERATIVE REPORTon 2 Ordered by an unspecified provider. [facility] Op Noteon 01-22-2022 Op Note Date: 01/22/2022 PreOp Dx: Indeterminate Left Thyroid Nodule PostOp Dx: Same Procedure: Left Thyroid Lobectomy with Intraoperative Recurrent Laryngeal Nerve Monitoring with NIM Monitor Surgical Procedure Classification: Surgical Procedure Classification [x] Elective (EL) [] Urgent (UR) [] Emergent (EM) [] Trauma (TR) Wound Classification: Surgical Wound Classification [x] Class I/Clean (CL) [] Class II/Clean-Contaminated (CC) [] Class III/Contaminated (C) [] ClassIV/Dirty-Infected (D) Complications: None Specimen(s): Left Thyroid Lobectomy Notes EBL: 10cc Transfusion: none Fluids: See anesthesia record Drains: none Lyon: none Special Meds: 2g Ancef, 0.5% Marcaine with epinephrine Surgeon: Maegan Eldridge MD Assist: Lexis Vaughn SA Anesthesia: General Indications: This is a 31-year-old female who presented to the office with an incidental left thyroid nodule. She subsequently underwent image guided biopsy that revealed atypical cells of uncertain significance. This was sent for further Afirma testing and found to have a 50% risk of malignancy. Given this, it was recommended she undergo left thyroid lobectomy. Risks, benefits and alternatives of surgery were discussed with the patient and decision was made to proceed. Risks of thyroid surgery include but are not limited to bleeding, infection, RLN injury resulting in hoarseness,possible hypoparathyroidism and need for thyroid hormone replacement, potential for further surgery if malignancy found. Informed consent was obtained. Description of procedure: The patient was brought to the operative suite and placed in the supine position. General anesthesia was induced. The NIM endotracheal tube was placed under glide scope visualization. Additional NIM return electrodes were placed within the chest and connected to the monitor appropriately. A shoulder roll was placed and both arms were tucked. All bony prominences were padded. The neck was prepped and draped in a sterile fashion with Betadine solution. A transverse incision was made 2 fingerbreadths above the sternal notch. Skin and subcutaneous tissues were divided. The platysma muscle was divided. Subplatysmal flaps were then created superiorly to the thyroid cartilage and inferiorly to the sternal notch. An extra small Ricco wound retractor was then placed for retraction. The thyrocervical fascia was then divided in the midline. The strap muscles were then spread and the thyroid was identified. The thyroid was carefully dissected off the overlying strap muscles. The superior pole was then grasped and mobilized off the surrounding tissues. The superior thyroid artery was clipped and divided. Smaller vessels were divided using the harmonic scalpel. The dissection was then carried inferiorly and the middle thyroid vein and inferior thyroid artery were then clipped and divided in a similar fashion. The recurrent laryngeal nerve was identified with both visualization and the NIM probe and preserved. The remaining fibrous attachments were then divided using the harmonic scalpel device. The isthmus was then divided on the midline using the harmonic scalpel. Attempts were made to include a previously identified nodule in the right inferior isthmus that was not previously biopsied within the specimen as well. The superior lobe was then marked with a stitch and the specimen was sent to pathology for further evaluation. The wound was then thoroughly irrigated and hemostasis was ensured. The recurrent laryngeal nerve was then again identified and found to be intact by both visualization and the probe. A Gelfoam gauze was then placed in the wound bed. The thyrocervical fascia was closed in the midline using a running 2-0 Vicryl suture. The skin and subcutaneous tissues were then irrigated. The platysma was closed using a interrupted 3-0 Vicryl suture. The skin was then closed using a running 4-0 Monocryl. Sterile Steri-Strips and dressing were then applied. Patient tolerated the procedure well, was extubated and was transferred to PACU in stable condition. All counts were correct. Normal [facility] , urine LABon 01-22 Beta HCG ( test) Ql (U) Negative Negative NA [facility] Comment on above: Please note: Very di lute urine specimens, as indicated by a low specific gravity, may not contain applications sales representative levels of hCG. If is still suspected, a first morning urine specimen should be collected 48 hours later and tested. is the most common reason for HCG in urine, although choriocarcinoma, hydatidiform mole, and certain nontropho- blastic malignancies also result in detectable urinary HCG levels. Sensitivity = 20mIU/mL. Test Performed by [facility], [address] [place], [place], [place] [address] [facility] Surgical Pathologyon 022 Surgical Pathology [id number] [facility] PATHOLOGY AND LABORATORY MEDICINE [address] [place] [address] Fax - FINAL SURGICAL PATHOLOGY REPORT NAME: RANI FORDE : 1990 31 Y BILLING NO.: [id number] LOCATION: [place] [address] 1 PROCEDURE 01/22/2022 DATE: SURGEON: MAEGAN ELDRIDGE M.D. RECEIVED 01/22/2022 DATE: ATTENDING: MAEGAN ELDRIDGE MD REPORT DATE: 01/23/2022 COPIES TO: DIAGNOSIS: THYROID, LEFT LOBECTOMY - PAPILLARY THYROID CARCINOMA, FOLLICULAR VARIANT. BENIGN PARATHYROID TISSUE PRESENT. SPECIMEN Procedure: Left lobectomy TUMOR Tumor Focality: Unifocal Tumor Characteristics Tumor Site: Left lobe Tumor Size: Greatest Dimension (Centimeters) - 0.8 x 0.6 x 0.6 cm Histologic Type: Papillary carcinoma, follicular variant, infiltrative Angioinvasion (vascular invasion): Not identified Lymphatic Invasion: Not identified Extrathyroidal Extension: Not identified Margin Status: All margins negative for carcinoma Distance from Invasive Carcinoma to Closest Margin: Less than 1 mm REGIONAL LYMPH NODES Regional Lymph Node Status: Not applicable (no regional lymph nodes submitted or found) PATHOLOGIC STAGE CLASSIFICATION (pTNM, AJCC 8th Edition) Reporting of pT, pN, and (when applicable) pM categories is based on information available to the pathologist at the time the report is issued. As per the AJCC (Chapter 1, 8th Ed.) it is the managing physician's responsibility to establish the final pathologic stage based upon all pertinent information, including but potentially not limited to this pathology report. pT Category: pT1a pN Category: pN not assigned (no nodes submitted or found) ADDITIONAL FINDINGS Additional Findings: Thyroiditis - Lymphocytic Parathyroid gland(s) present Number of Parathyroid Glands: 1 Parathyroid Gland Findings: Within normal limits SALESPERSON SEWING MACHINES TUMOR BLOCK(S): A1, A2 CRH/CRH Signature> MARY PATE M.D. CLINICAL INFORMATION: Thyroid nodule SPECIMEN: THYROID , left thyroid lobe stitch cuevas superior lobe GROSS DESCRIPTION: Received in formalin labeled left thyroid lobe is a lobe of left thyroid that measures 5 x 2.5 x 1.5 cm. A suture cuevas the superior pole. The specimen weighs 10 grams. The capsular surface is somewhat roughened; however, appears intact. The area of the isthmus is identified and is painted orange. The remaining capsular surface is painted black. Upon transection of the specimen the cut surfaces are beefy and red-spears. Located within the mid portion of the specimen is a nonencapsulated white area measuring 0.8 x 0.6 x 0.6 cm. It has a white-spears and hemorrhagic cut surface. No other nodules are identified. The specimen is sectioned and is entirely submitted in eight cassettes with portion containing the nodule entirely submitted in cassettes one through four. JCK/JAF Disclaimer: The following statement applies to all immunohistochemistry, in situ hybridization, molecular studies, and immunofluorescence testing. The use of one or more reagents in the above tests is regulated as an analyte specific reagent (ASR). These tests were developed and their performance characteristics determined by the clinical laboratories of [facility]. They have not been cleared by the US Food and Drug Administration (FDA). The FDA has determined that such clearance or approval is not necessary. All the above immunostains were performed on paraffin embedded tissue. Appropriate positive and negative controls (where applicable) were run in parallel with the patient's specimen; these controls showed expected staining pattern, with acceptable intensity of staining. Immunohistochemical assays have not been validated on decalcified tissues. Results should be interpreted with caution given the raised possibility of false negativity on decalcified specimens. Case reviewed at [address] [address]. DEPARTMENT OF PATHOLOGY AND LABORATORY MEDICINE [place], [place] [address] [email or web address] Normal [facility] Basic Metabolic Panelon 06-2 -2021 Anion gap [Moles/Vol] 2 mmol/L Low 3-13 [facility] Comment on above: Performed By: #### Glendy HERNANDEZ BMP3 #### [facility] [address] [place] [address] Calcium [Mass/Vol] 8.9 mg/dL Normal 8.4-10.4 [facility] Comment on above: Performed By: #### Glendy HERNANDEZ BMP3 #### [facility] [address] [place] [address] CO2 [Moles/Vol] 31 mmol/L High 22-30 [facility] Comment on above: Performed By: #### Glendy HERNANDEZ BMP3 #### [facility] [address] [place] [address] Glucose [Mass/Vol] 93 mg/dL Normal 70-100 [facility] Comment on above: Performed By: #### Glendy HERNANDEZ BMP3 #### [facility] [address] [place] [address] Urea nitrogen [Mass/Vol] 10 mg/dL Normal 9-20 [facility] Comment on above: Performed By: #### Glendy HERNANDEZ BMP3 #### [facility] [address] [place] [address] Creatinine [Mass/Vol] 0.87 mg/dL Normal 0.52-1.25 [facility] Comment on above: Performed By: #### CINDY ROSALES3 #### [facility] [address] [place] [address] GFR/1.73 sq M.predicted among blacks MDRD (S/P/Bld) [Vol rate/Area] mL/min/{1.73_m2} Normal >60 [facility] Comment on above: Performed By: #### Glendy HERNANDEZ BMP3 #### [facility] [address] [place] [address] GFR/1.73 sq M.predicted among non-blacks MDRD (S/P/Bld) [Vol rate/Area] 89.7 mL/min/{1.73_m2} Normal >60 [facility] Comment on above: Result Comment: KDIG O guidelines provide the following GFR categories: Stage GFR(ml/min/1.73 m2) Terms G1 >=90 Normal or high G2 60-89 Mildly decreased* G3a 45-59 Mildly to moderately decreased G3b 30-44 Moderately to severely decreased G4 15-29 Severely decreased G5 <15 Kidney failure *Relative to young adult level. In the absence of evidence of kidney damage, neither GFR category G1 nor G2 fulfill the criteria for CKD. The CKD-EPI equation is validated in individuals 18 years of age and older. Currently the best equation for estimating glomerular filtration rate (GFR) from serum creatinine in children is the Bedside Casillas equation. It is less accurate in patients with extremes of muscle mass, restriction of dietary protein, ingestion of creatine, extra-renal metabolism of creatinine, or treatment with medications that affect renal tubular creatinine secretion. Performed By: #### Glendy HERNANDEZ BMP3 #### [facility] [address] [place] [address] Chloride [Moles/Vol] 107 mmol/L Normal 98-107 [facility] Comment on above: Performed By: #### Glendy HERNANDEZ BMP3 #### [facility] [address] [place] [address] Potassium [Moles/Vol] 4.8 mmol/L Normal 3.5-5.1 [facility] Comment on above: Performed By: #### H MARY BMP3 #### [facility] [address] [place] [address] Sodium [Moles/Vol] 140 mmol/L Normal 135-145 [facility] Comment on above: Performed By: #### H MARY BMP3 #### [facility] [address] [place] [address] Hemogramon 01-16-2022 Erythrocyte distribution width (RBC) [Ratio] 13.7 % Normal 11.5-14.5 [facility] Comment on above: Performed By: #### Glendy HERNANDEZ BMP3 #### [facility] [address] [place] [address] Hematocrit (Bld) [Volume fraction] 39.3 % Normal 35.0-47.0 [facility] Comment on above: Performed By: #### Glendy HERNANDEZ BMP3 #### [facility] [address] [place] [address] Hemoglobin (Bld) [Mass/Vol] 13.0 g/dL Normal 11.7-16.0 [facility] Comment on above: Performed By: #### Glendy HERNANDEZ BMP3 #### [facility] [address] [place] [address] MCH (RBC) [Entitic mass] 29.4 pg Normal 26.0-34.0 [facility] Comment on above: Performed By: #### H MARY BMP3 #### [facility] [address] [place] [address] MCHC 33.1 % Normal 32.0-36.0 [facility] Comment on above: Performed By: #### Glendy HERNANDEZ BMP3 #### [facility] [address] [place] [address] MCV (RBC) [Entitic vol] 88.7 fL Normal 79.0-98.0 [facility] Comment on above: Performed By: #### Glendy HERNANDEZ BMP3 #### [facility] [address] [place] [address] Platelet mean volume (Bld) [Entitic vol] 8.3 fL Normal 7.4-12.4 [facility] Comment on above: Result Comment: MPV is a calculated measurement using platelet volume ratio. Performed By: #### H EMOG, BMP3 #### [facility] [address] [place] [address] Platelets (Bld) [#/Vol] 246 10*3/uL Normal 140-440 [facility] Comment on above: Performed By: #### H EMOG, BMP3 #### [facility] [address] [place] [address] RBC (Bld) [#/Vol] 4.43 10*6/uL Normal 3.80-5.20 [facility] Comment on above: Performed By: #### H EMOG, BMP3 #### [facility] [address] [place] [address] WBC (Bld) [#/Vol] 7.2 10*3/uL Normal 3.6-10.7 [facility] Comment on above: Performed By: #### H EMOG, BMP3 #### [facility] [address] [place] [address] Medical Cytologyon Medical Cytology [facility]22-415 DEPARTMENT OF PATHOLOGY AND [facility], [facility]. LABORATORY MEDICINE [address] [place] [address] FINAL MEDICAL CYTOLOGY REPORT NAME: RANI FORDE : 1990 31 Y F BILLING NO.: [id number] LOCATION: [facility] ULTRASOUND PROCEDURE 12/12/2021 DATE: PHYSICIAN: VISHNU RUIZ RECEIVED DATE: 12/12/2021 ATTENDING: VISHNU RUIZ REPORT DATE: 12/13/2021 COPIES TO: RICHARD MOTTA M.D. CLINICAL DATA: Thyroid Nodule DIAGNOSIS Diagnostic Category: ATYPIA OF UNDETERMINED SIGNIFICANCE. The Thinlayer preparation shows numerous small follicular cells in sheets and clusters. Scant colloid is present. The overall features favor a benign follicular nodule. There are rare follicular groups with mild nuclear crowding and scattered few microfollicles are also noted. NOTE: Reflex Afirma testing will be sent on all cases diagnosed as Atypia of Undetermined Significance/Follicula r Lesion of Undetermined Significance or Suspicious for a Follicular/Hurthle Cell Neoplasm with results to follow. Comment: According to the [place] System for Reporting Thyroid Cytopathology, the implied risk of malignancy associated with the general categories are as follows: Benign 0-3%, Atypia of Undetermined Significance 5-15%, Follicular Lesion of Undetermined Significance 5-15%, Follicular Neoplasm or Suspicious for a Follicular Neoplasm 15-30%, Suspicious for Malignancy 60-75% and Malignancy 97-99%. Malignancy rates at individual institutions may differ from these published rates. SPECIMEN: FINE NEEDLE ASPIRATION-THYROID, LEFT PROCEDURE(S): FINE NEEDLE ASPIRATION GROSS DESCRIPTION: 25 ml, Red fluid, w/cytolyt Materials Prepared & Examined: Cell Blocks . . . . . . . . . . . . 1 Monolayers . . . . . . . . . . . . 1 SJK Screened by Carrie ENGEL, PhD Printed December 13, 2021 at 12:15:27 PM Disclaimer The following statement applies to all immunohistochemistry, in situ hybridization, molecular studies, and immunofluorescence testing. The use of one or more reagents in the above tests is regulated as an analyte specific reagent (ASR). These tests were developed and their performance characteristics determined by the clinical laboratories of [facility]. They have not been cleared by the US Food and Drug Administration (FDA). The FDA has determined that such clearance or approval is not necessary. All the above immunostains were performed on paraffin embedded tissue. Appropriate positive and negative controls (where applicable) were run in parallel with the patient's specimen; these controls showed expected staining pattern, with acceptable intensity of staining. Immunohistochemical assays have not been validated on decalcified tissues. Results should be interpreted with caution given the raised possibility of false negativity on decalcified specimens. Case reviewed at [facility] [address] [place] [address]. DEPARTMENT OF PATHOLOGY AND LABORATORY MEDICINE [place], [place] [address] [email or web address] [facility] US Biopsy Thyroidon 12-13-19 22 US Biopsy Thyroid Patient Name: RANI BANKS Ultrasound ACCESSION EXAM DATE/TIME PROCEDURE ORDERING PROVIDER [id number] 12/12/2021 11:11 EDT US Biopsy Thyroid BLACK, TUBE LASER OPERATOR-VISHNU CASILLAS CPT code 12608 [address] Reason For Exam (US Biopsy Thyroid) Repeat Thyroid bx, atypia of undetermined significance Report Ultrasound-guided left thyroid nodule aspiration biopsy The benefits and risks of the procedure were discussed with the patient. She agreed to proceed. Local anesthetic: lidocaine Using sterile technique and ultrasound guidance four aspiration biopsies were were performed of the nodule in the left thyroid gland using 23 gauge needles. The specimens were submitted to cytology and Affirma. Report Dictated on Final Dictating Physician: MD MOTTA MALAY Signed Date and Time: 12/12/2021 11:15 am Signed by: MD MOTTA MALAY Transcribed Date and Time: 12/12/2021 11:16 [facility] Medical Cytologyon Medical Cytology [place] [address] DEPARTMENT OF PATHOLOGY AND [facility] LABORATORY MEDICINE [address] [place] [address] FINAL MEDICAL CYTOLOGY REPORT NAME: RANI FORDE : 1990 31 Y F BILLING NO.: [id number] LOCATION: [facility] ULTRASOUND PROCEDURE 11/28/2021 DATE: PHYSICIAN: MAEGAN ELDRIDGE M.D. RECEIVED DATE: 11/28/2021 ATTENDING: MAEGAN ELDRIDGE MD REPORT DATE: 11/29/2021 COPIES TO: VANDANA GARCÍA MD CLINICAL DATA: Thyroid nodule. DIAGNOSIS Diagnostic Category: ATYPIA OF UNDETERMINED SIGNIFICANCE. SPECIMEN: FINE NEEDLE ASPIRATION-THYROID, LEFT PROCEDURE(S): FINE NEEDLE ASPIRATION GROSS DESCRIPTION: 25 ml, clear fluid, w/cytolyt Materials Prepared & Examined: Cell Blocks . . . . . . . . . . . . 1 Smear Slides . . . . . . . . . . . 6 Special Stains . . . . . . . . . . DQ , KENANK Screened by IRIS GIORDANO M.D. Printed November 29, 2021 at 4:19:04 PM Disclaimer The following statement applies to all immunohistochemistry, in situ hybridization, molecular studies, and immunofluorescence testing. The use of one or more reagents in the above tests is regulated as an analyte specific reagent (ASR). These tests were developed and their performance characteristics determined by the clinical laboratories of [facility]. They have not been cleared by the US Food and Drug Administration (FDA). The FDA has determined that such clearance or approval is not necessary. All the above immunostains were performed on paraffin embedded tissue. Appropriate positive and negative controls (where applicable) were run in parallel with the patient's specimen; these controls showed expected staining pattern, with acceptable intensity of staining. Immunohistochemical assays have not been validated on decalcified tissues. Results should be interpreted with caution given the raised possibility of false negativity on decalcified specimens. Case reviewed at [address] [address]. DEPARTMENT OF PATHOLOGY AND LABORATORY MEDICINE [place], [place] [address] [email or web address] Normal [facility] US Biopsy Thyroidon 11-29-19 US Biopsy Thyroid Patient Name: RANI BANKS Ultrasound ACCESSION EXAM DATE/TIME PROCEDURE ORDERING PROVIDER [id number] 11/28/2021 13:16 EDT US Biopsy Thyroid MD ELDRIDGE CRAIG CPT code 13737 [address] Reason For Exam (US Biopsy Thyroid) Nontoxic single thyroid nodule Report EXAMINATION: Ultrasound-guided thyroid nodule biopsy. EXAM DATE and TIME: 11/28/2021 1:16 PM EDT INDICATION: Nontoxic single thyroid nodule ADDITIONAL INFORMATION: 31-year-old female with a left TI-RADS 4 nodule identified on recent prior thyroid ultrasound presents for ultrasound-guided thyroid biopsy COMPARISON: Thyroid ultrasound dated 11/14/2021 INFORMED CONSENT: Written informed consent was obtained. The procedure, risks, benefits, and alternatives were discussed. All questions were answered. TIMEOUT: Physician-led timeout was conducted documenting correct patient, procedure, site, fire risk, antibiotics and allergies. COMPLICATIONS: None. ESTIMATED BLOOD LOSS: Less than 10 mL. MEDICATIONS: Antibiotics: None. STERILE TECHNIQUE: All elements of maximal sterile technique were applied: cap, mask, sterile gown, proper hand hygiene including sterile gloves, a large sterile sheet, and hospital-approved cutaneous antisepsis at the site (2% chlorhexidine). A sterile probe cover and sterile gel were also used to ensure ultrasound sterility. ANESTHESIA/SEDATION: Local. PROCEDURE/TECHNIQUE: The patient was brought to the interventional suite and placed in the supine position upon the table. The left neck region was then prepped and draped in the usual aseptic fashion. Local anesthesia was achieved with 1% lidocaine solution. 3 passes were made with 25-gauge needles in the target left thyroid lobe nodule. Specimens were processed per protocol. Local hemostasis was achieved with manual Ultrasound Report compression and a sterile dressing was applied. The patient tolerated the procedure well without immediate complication and was transferred from the interventional suite in stable condition. FINDINGS: Ultrasound images redemonstrate the target TI-RADS 4 left thyroid nodule better described on the prior ultrasound examination and define the pathway for needle passage. Spot images obtained during fine needle aspiration demonstrates satisfactory needle position within the thyroid nodule. IMPRESSION: Technically successful uncomplicated biopsy of the target TI-RADS 4 left thyroid lobe nodule. Report Dictated on Workstation: [id number] Final Dictating Physician: MD GARCÍA CHRISTOPHER Signed Date and Time: 11/28/2021 2:22 pm Signed by: MD GARCÍA CHRISTOPHER Transcribed Date and Time: 11/28/2021 2:23 Normal [facility] US Thyroid/Parathyroidon US Thyroid/Parathyroid Patient Name: RANI AMOS Ultrasound ACCESSION EXAM DATE/TIME PROCEDURE ORDERING PROVIDER [id number] 11/14/2021 17:08 EDT US Parathyroid CHANDAN BOSS D.O. CPT code 41540 Reason For Exam (US Parathyroid) Nontoxic single thyroid nodule Report ULTRASOUND THYROID: CLINICAL INDICATION: Thyroid nodule TECHNIQUE: Ultrasonographic evaluation of the thyroid COMPARISON: None FINDINGS: RIGHT LOBE: 1.7 x 1.8 x 5.3 cm. Heterogeneous echotexture. There is a single thyroid nodule described below: Nodule Location: Inferior right lobe and isthmus Size: 0.7 x 0.8 x 1.1cm (AP x transverse x cephalocaudad) Echogenicity: Solid, isoechoic Margins: well-circumscribed Calcifications: Microcalcifications are present TI-RADS category*: 4 - moderately suspicious Change since last exam: Not applicable LEFT LOBE: 2.0 x 2.0 x 5.5 cm. Heterogeneous echotexture. There is a single thyroid nodule described below: Nodule Location: Interpolar/inferior left thyroid lobe Size: 1.0 x 1.1 x 1.6cm (AP x transverse x cephalocaudad) Echogenicity: Solid, isoechoic Margins: lobulated Calcifications: None identified TI-RADS category*: 4 - moderately suspicious Change since last exam: Not applicable Isthmus: 6 mm in AP diameter. Cervical lymph nodes: None identified. IMPRESSION: 1. Left TI-RADS 4 nodule measuring 1.6 cm. Recommend fine-needle aspiration. 2. Right TI-RADS 4 nodule measuring 1.1 cm. Recommend follow-up ultrasound. 3. Thyromegaly. Heterogeneous thyroid, which may be seen in thyroiditis. Ultrasound Report *TI-RADS (2017) Reference: Riley Dimas. ACR Thyroid Imaging, Reporting and Data System (TI-RADS): White Paper of the ACR TI-RADS Committee. J [facility]. October 2016. Please note: There are other existing guidelines to classify thyroid nodules to determine need for FNA and this decision will be deferred to the ordering physician. Thyroid nodule details (add points for total score): Composition(points): 1 - mixed cystic and solid 2 - solid Echogenicity: 1 - hyperechoic or isoechoic 2 - hypoechoic 3 - very hypoechoic Shape: 3 - taller than wide Margin: 2 - lobulated or irregular 3 - extrathyroidal extension Echogenic foci: 1 - macrocalcifications 2 - rim calcification 3 - microcalcifications Risk for malignancy: TI-RADS 1 - 0 points - (benign) <2% risk TI-RADS 2 - 2 points - (not suspicious) <5% TI-RADS 3 - 3 points - (mildly suspicious) <5% - FNA when >/= 2.5cm. Follow when >1.5cm at 1, 3 and 5 years TI-RADS 4 - 4-6 points - (moderately suspicious) 5-20% - FNA when >/= 1.5cm. Follow when >1cm at 1, 2, 3 and 5 years TI-RADS 5 - 7+ points - (highly suspicious) >20% - FNA when >/= 1cm. Follow when >0.5cm every year for up to 5 years Notes: 1. There are other existing guidelines to classify thyroid nodules to determine need for FNA; and this decision will be deferred to the ordering physician. 2. Nodule vascularity is no longer considered a useful characteristic to assess risk for malignancy. 3. Score and follow a maximum of four nodules 4. Significant growth is increase in two dimensions each by 20% 5. Follow up scanning of less than 1yr is not warranted 6. FNA biopsy of no more than two nodules with highest TI-RADS levels Report Dictated on Final Dictating Physician: MD TRAVIS NICHOLAS Signed Date and Time: 11/15/2021 7:29 am Signed by: MD TRAVIS NICHOLAS Transcribed Date and Time: 11/15/2021 7:30 Normal [facility] LABORATORYOrdered By: SYSTEM SYSTEM on 09-30-2021 Base excess Calc (BldMV) [Moles/Vol] 6.0 mEq/L Invalid Interpretation Code 4.0 - 15.0 mEq/L AH ADM SS Basophils (Bld) [#/Vol] 0.10 103/mcL Invalid Interpretation Code 0.00 - 0.27 10^3/mcL AH Remisol SS Basophils/100 WBC (Bld) 1.2 % Invalid Interpretation Code 0.0 - 2.5 % AH Remisol SS Calcium [Mass/Vol] 9.2 mg/dL Invalid Interpretation Code 8.4 - 10.1 mg/dL AH ADM SS Chloride [Moles/Vol] 107 mmol/L Invalid Interpretation Code 98 - 110 mEq/L AH ADM SS CO2 [Moles/Vol] 27 mmol/L Invalid Interpretation Code 22 - 32 mEq/L AH ADM SS Creatinine [Mass/Vol] 0.83 mg/dL Invalid Interpretation Code 0.50 - 1.20 mg/dL AH ADM SS Eosinophils (Bld) [#/Vol] 0.20 103/mcL Invalid Interpretation Code 0.00 - 0.65 10^3/mcL AH Remisol SS Eosinophils/100 WBC (Bld) 2.8 % Invalid Interpretation Code 0.0 - 6.0 % AH Remisol SS Erythrocyte distribution width (RBC) [Ratio] 13.9 % Invalid Interpretation Code 11.5 - 15.5 % AH Remisol SS GFR/1.73 sq M.predicted among blacks MDRD (S/P/Bld) [Vol rate/Area] ml/min/1.73sqm Invalid Interpretation Code AH ADM SS GFR/1.73 sq M.predicted among non-blacks MDRD (S/P/Bld) [Vol rate/Area] ml/min/1.73sqm Invalid Interpretation Code ADM SS Glucose [Mass/Vol] 86 mg/dL Invalid Interpretation Code 70 - 110 mg/dL AH ADM SS Hematocrit (Bld) [Volume fraction] 36.3 % Invalid Interpretation Code 34.0 - 46.0 % AH Remisol SS Hemoglobin (Bld) [Mass/Vol] 12.0 G/dL Invalid Interpretation Code 12.0 - 16.0 G/dL AH Remisol SS Lymphocytes (Bld) [#/Vol] 1.70 103/mcL Invalid Interpretation Code 0.90 - 4.32 10^3/mcL AH Remisol SS Lymphocytes/100 WBC (Bld) 24.1 % Invalid Interpretation Code 20.0 - 40.0 % AH Remisol SS MCH (RBC) [Entitic mass] 29.7 pg Invalid Interpretation Code 27.0 - 33.0 pg AH Remisol SS MCHC (RBC) [Mass/Vol] 33.0 G/dL Invalid Interpretation Code 32.0 - 36.0 G/dL AH Remisol SS MCV (RBC) [Entitic vol] 89.9 fL Invalid Interpretation Code 80.0 - 99.0 fL AH Remisol SS Monocytes (Bld) [#/Vol] 0.60 103/mcL Invalid Interpretation Code 0.09 - 1.40 10^3/mcL AH Remisol SS Monocytes/100 WBC (Bld) 8.4 % Invalid Interpretation Code 2.0 - 13.0 % AH Remisol SS Neutrophils (Bld) [#/Vol] 4.50 103/mcL Invalid Interpretation Code 2.25 - 8.10 10^3/mcL AH Remisol SS Neutrophils/100 WBC (Bld) 63.5 % Invalid Interpretation Code 50.0 - 75.0 % AH Remisol SS Platelet mean volume (Bld) [Entitic vol] 8.1 fL Invalid Interpretation Code 6.6 - 10.5 fL AH Remisol SS Platelets (Bld) [#/Vol] 228 103/mcL Invalid Interpretation Code 150 - 450 10^3/mcL AH Remisol SS Potassium [Moles/Vol] 3.5 mmol/L Invalid Interpretation Code 3.5 - 5.0 mEq/L AH ADM SS RBC (Bld) [#/Vol] 4.04 106/mcL Invalid Interpretation Code 4.10 - 5.30 10^6/mcL AH Remisol SS Sodium [Moles/Vol] 140 mmol/L Invalid Interpretation Code 136 - 145 mEq/L AH ADM SS Troponin I.cardiac DL <= 0.01 ng/mL [Mass/Vol] ng/L Invalid Interpretation Code 0.00 - 34.00 ng/L AH ADM SS Urea nitrogen [Mass/Vol] 14.0 mg/dL Invalid Interpretation Code 8.0 - 22.0 mg/dL AH ADM SS Urea nitrogen/Creatinine [Mass ratio] 16.9 ratio Invalid Interpretation Code 10.0 - 22.0 ratio AH ADM SS WBC (Bld) [#/Vol] 7.10 103/mcL Invalid Interpretation Code 4.50 - 10.80 10^3/mcL AH Remisol SS LABORATORYOrdered By: Phil Kraft on 09-30-2021 Fibrin D-dimer DDU (PPP) [Mass/Vol] 338 ng/mL D-DU Invalid Interpretation Code 0 - 230 ng/mL D-DU AH Auto Coag SS Comment on above: Result Comment: Resu lts reported in D-DU ng/ml. Positive for D-dimer. A positive D-dimer may occur in the following: DVT, PE, DIC, Trauma, Cancer, Sepsis, , Rheumatoid arthritis, Myocardial infarction and Cirrhosis. Note: Not affected by Rheumatoid Factor <=1400 IU/mL Basic Metabolic Panlon 09-03 Anion gap [Moles/Vol] 10 mmol/L Normal 9-18 [facility] Comment on above: Performed By: #### B MP #### [place] [phone] Calcium [Mass/Vol] 8.5 mg/dL Normal 8.5-10.5 [facility] Comment on above: Performed By: #### B MP #### [place] [phone] Chloride [Moles/Vol] 107 mmol/L Normal 98-110 [facility] Comment on above: Performed By: #### B MP #### [place] [phone] CO2 [Moles/Vol] 23 mmol/L Normal 23-32 [facility] Comment on above: Performed By: #### B MP #### [place] [phone] Creatinine [Mass/Vol] 0.84 mg/dL Normal 0.70-1.40 [facility] Comment on above: Performed By: #### B MP #### [place] [phone] eGFR- Amer. >60 Normal >59 [facility] Comment on above: Performed By: #### B MP #### [place] [phone] eGFR-All Other Races >60 Normal >59 [facility] Comment on above: Result Comment: eGFR (Estimated GFR) Units of measure: mL/min/1.73 meters squared eGFR is derived from the reexpressed MDRD Study equation using the following parameters: serum creatinine, age, gender and race. The creatinine assay has been calibrated to be traceable to IDMS. An eGFR <60 mL/min/1.73m2 for >3 months is consistent with chronic kidney disease. Refer to KDOQI guidelines for clinical interpretation. In patients with unstable renal function, e.g. those with acute kidney injury, the eGFR may not accurately reflect actual GFR. Note: On 09/21/2021, the eGFR calculation will be updated to the NKF-ASN Task Force recommended 2020 CKD-EPI creatinine equation which does not include a race variable. For more information or to access a 2020 CKD-EPI calculator, visit the National Kidney [employer] website at kidney.org/professionals/kdoqi/gfr_calculator. Performed By: #### B MP #### [place] [phone] Glucose [Mass/Vol] 84 mg/dL Normal 65-100 [facility] Comment on above: Performed By: #### B MP #### [place] [phone] Potassium [Moles/Vol] 4.6 mmol/L Normal 3.5-5.0 [facility] Comment on above: Performed By: #### B MP #### [place] [address] Sodium [Moles/Vol] 140 mmol/L Normal 132-148 [facility] Comment on above: Performed By: #### B MP #### [place] [phone] Urea nitrogen [Mass/Vol] 5 mg/dL Low 8-25 [facility] Comment on above: Performed By: #### B MP #### [place] [phone] CNDSon 09-03-2021 [facility] HNO ID: [id number] Author: Nino Montiel MD Service: General Internal Medicine Author Type: Resident Type: Discharge Summary Filed: 09/03/2021 1:33 PM Note Text: Attestation signed by Cherelle Garcia DO at 09/03/2021 10:31 PM [facility] [place]FF PHYSICIAN NOTE OF PERSONAL INVOLVEMENT IN CARE I have reviewed the discharge summary obtained and documented by the resident and I personally participated in the zaman components. I have discussed the case and management of the patient's care. The following comments revise or confirm relevant zaman components of their note. Patient seen and examined. Patient feels improved. She is having a tension FREEMAN and Motrin and APAP are ineffective. Ordered 1 time dose of valium and indocin. She feels overall improved and is not orthostatic but still with sweats and myalgias probably c/w withdrawal. BP 112/64 Pulse 62 Temp 36.7 ?C (98 ?F) (Oral) Resp 18 LMP 08/04/2017 SpO2 98% GENERAL: Alert, no distress, cooperative SKIN: Tattoos noted EXTREMITIES: Extremities normal, no deformities, edema, clubbing or skin discoloration. Good capillary refill. NEURO: negative findings: speech normal, mental status intact, cranial nerves 2-12 intact, muscle strength normal, sensation to light touch normal PULSES: 2+ radial, 2+ posterial tibial, 2+ dorsalis pedis IMPRESSION: This is a 31 year old F with a h/o ADHD, PEDRO who presents with unintentional weight loss, poor dietary intake, syncope likely medication induced from Adderall and Elavil. Not sure if THC plays any role in her symptoms, but did have a discussion with her to inform her of risks of cyclic vomiting syndrome from marijuana use. Recommend follow up with Dr. Wu (note that central scheduling arranged appointment with Dr. Barajas for 09/09). Recommend follow up with psychiatry outpatient. EEG, CTH, EKG, orthostatics, labs (except for potassium) are all normal. Noted to have severe protein calorie malnutrition. Severe protein-calorie malnutrition (HCC) POA: Yes Based on: Unintentional Weight Loss;Insufficient Energy Intake Assessment: I have reviewed the result of the nutrition assessment and plan and agree Plan: Diet;Supplements;Vitam in/Mineral Supplements;Medication s Active Problems: Tobacco abuse disorder Marijuana use Unintentional weight loss ADHD PEDRO (generalized anxiety disorder) Hypokalemia Severe protein-calorie malnutrition (HCC) Nicotine use disorder, F17.2 PLAN: I agree with Dr. Montiel's plan as outlined in his discharge summary. Please see my additions in italics and deletions in Plan of care discussed with Provider, RN, Patient, Care Management, and Pharmacist Plan communicated to: N/A CARE COORDINATION: Discharge Management: I personally spent greater than 30 minutes involved in the discharge management of this patient SIGNATURE: Cherelle Garcia DO; [facility] STAFF PAGER: [phone] DATE of SERVICE: 09/03/21 TIME of SERVICE: 1207 DISCHARGE SUMMARY PATIENT NAME: Rani Forde ADMISSION DATE: 09/02/2021 DISCHARGE DATE: 09/03/2021 ATTENDING PHYSICIAN: Cherelle Garcia, * Code Status: Not on file Highest Readmission Risk Score: 7 The 30 day readmissions risk score is derived from an internally validated risk model which evaluates patient level characteristics, utilization history, medication orders and lab results up until the day of discharge. Patients with a score of 40 or above are considered highest risk for readmission. Specific patient level drivers will be listed at the bottom of the summary. CONSULTING TEAMS DURING HOSPITALIZATION: Treatment Team: Attending Provider: Cherelle Garcia DO Primary Service: [place] [id number] REASON FOR HOSPITALIZATION: Syncope DIAGNOSIS: Principal Problem (Resolved): Syncope POA: Yes Active Problems: Tobacco abuse disorder POA: Yes Unintentional weight loss POA: Yes Marijuana use POA: Yes ADHD POA: Yes PEDRO (generalized anxiety disorder) POA: Yes Hypokalemia POA: Yes Nicotine use disorder, F17.2 POA: Yes Resolved Problems: Dizziness POA: Yes Severe protein-calorie malnutrition (HCC) POA: Yes OPERATIONS DURING HOSPITALIZATION: None PROCEDURES DURING HOSPITALIZATION: No procedures performed HOSPITAL COURSE: Ms. Forde is a 31 year with PMH of Depression, Anxiety, ADHD, migraines, fibromyalgia and GERD who presented to the from [facility] after she sustained episode of syncope.Recently patient started taking amitriptiline after the episode of severe migraine headache. On 09/01 she took her bedtime dose of TCA went to bed, received phone call from her boyfriend, stood up from the bed and after making few steps had an episode of LOC. As per her mother and BF she had no stool or urine in (more content not included)... [facility] NURSING PROGon 09-03-2021 NURSING PROG HNO ID: [id number] Author: April Vergara RN Service: Nursing Author Type: Registered Nurse Type: Nursing Progress Note Filed: 09/03/2021 1:59 PM Note Text: [address] [place] [address] Office: Appointments: 09/03/2021 TO WHOM IT MAY CONCERN: This is to certify that Rani Forde: Had a Medical Evaluation today: Out of work from 09/02/21 through 09/03/21. May Return to work on: 09/04/21. Sincerely yours, April Vergara RN September 03, 2021 1:57 PM [facility] NURSING PROG HNO ID: [id number] Author: April Vergara RN Service: Nursing Author Type: Registered Nurse Type: Nursing Progress Note Filed: 09/03/2021 4:18 PM Note Text: Nursing Progress Note Patient Name: Rani Forde Patient Location: [place] [address]/[facility] __ Daily note: Pt is AANDOX3 and up in room independent, steady gait. No neurological deficits noted at this time. C/o FREEMAN, medicated per MAR although minimal relief. Denies dizziness, SOB, and N/V. Sinus rythym on telemetry. No further needs at this time. All safety measures intact, will continue to monitor. 1345- Discharge instructions, medications, and follow-up appointments reviewed with pt. Provided with list of resources for new psychiatrist as well as scheduled with appointment in headache clinic. 1615-Pt discharged off unit via wheelchair. Left with all belongings, discharge instructions, and work excuse. This note was completed by: April Vergara [facility] NUTRITIONon 09-03-2021 NUTRITION HNO ID: [id number] Author: Erum Casillas RD Service: Nutrition Therapy Author Type: Registered Dietitian Type: Nutrition Filed: 09/03/2021 12:02 PM Note Text: NUTRITION THERAPY INITIAL ASSESSMENT SERVICE DATE: 09/03/2021 SERVICE TIME: 11:56 AM Nutrition Assessment: Recommended Malnutrition Diagnosis: Severe Protein-Calorie Malnutrition In the context of: Social/Environmental Circumstance Based on: Unintentional Weight Loss;Insufficient Energy Intake Nutrition Diagnosis: Problem: Unintended weight loss Related to: Inability to consume sufficient nutrients As evidenced by: Patient/family self-report;Medication s and treatments Estimated kilocalorie needs: 5081-0966 Calorie Calculation Method: 25-30 kcals/kg Estimated protein needs (grams): 78-98 Grams protein determined by: 1.2 - 1.5 g/kg Care Plan: Continue current diet Supplements: Ensure Clear;Mighty Shake No Sugar Added Vitamins and Minerals: Multivitamin with minerals Medications: Stool softener Monitor and Evaluation: Meet greater than 75% of estimated needs;Monitor bowel function;Monitor fluid/electrolyte balance;Monitor labs, I/Os, vital signs, weight I have confirmed and edited as necessary the HPI obtained by Dr. garcia on 09/03/21 and all reflect current status. HPI: Ms. Forde is a 31 year with PMH of Depression, Anxiety, ADHD, migraines, fibromyalgia and GERD who presented to the from [facility] after she sustained episode of syncope.Recently patient started taking amitriptiline after the episode of severe migraine headache. On 09/01 she took her bedtime dose of TCA went to bed, received phone call from her boyfriend, stood up from the bed and after making few steps had an episode of LOC. As per her mother and BF she had no stool or urine incontinence, no tonic or clonic jerks, oral foaming. She partially regained consciousness and had repeated episode, after her BF held her to ambulate. Patient denied chest pain, shortness of breath, vomiting, diarrhea. Called EMS. In the ER: potassium 3.3, otherwise lab unremarkable. Brain CT - Chiari I malformation. Patient was transferred to . Off note, for her ADHD patient was taking 10mg Adderall admitted weight loss 60 pounds over 6 month due to lack of appetite. Admitted poor fluid intake. Intake History: Nutrition Intake Prior to Admission: Less than 50% estimated energy needs greater than or equal to 3 months Current Intake: Less than 50% estimated energy needs Over: 1 day Pt started new ADHD medication in February when is when she started experiencing a decreased appetite/early satiety leading to wt loss. Pt eats approx 1 meal a day at this point and has a lack of energy. Tried some different protein powders to make shakes but didn't really like it. Agreeable to protein drinks here to try and may continue once she gets home. She is stopping her current medication so unsure when appetite will return. Discussed small calorie dense meals or snacks as she can't eat large amounts. Recommended a multivitamin. Also encouraged fluid intake to help with constipation, may benefit from a stool softener. Diet Orders (From admission, onward) Start Ordered 09/02/21929 DIET REGULAR START NOW 09/02/21920 Anthropometrics: Ht: 5'2 Dosing Weight: 65.3 kg (144 lb) Usual Weight: 91.6 kg (202 lb) There is no height or weight on file to calculate BMI. Overweight Weight change percentage over time: down 28% x past 6 months Physical Exam: Subcutaneous fat loss: No fat loss Muscle loss: No muscle loss Potential micronutrient deficiency: No deficiency identified Edema/Ascites: No edema GI Symptoms: Constipation Functional Status: Regressed Potential Signs of Inflammation: No identifiable sources MNT Billing: $ Initial Assessment: 1-15 minutes SIGNATURE: Erum Casillas, ,RD,LD,CNSC PATIENT NAME: Rani Forde DATE: September 03, 2021 TIME: 11:56 AM Normal [facility] CASE MGT INIT Deanne 2021 CASE MGT INIT QIAN HNO ID: [id number] Author: Ziggy Velasquez RN Service: Nursing Author Type: Registered Nurse Type: Care Mgt Initial Assessment Filed: 09/02/2021 1:04 PM Note Text: CARE MANAGEMENT PROGRESS NOTE SERVICE DATE: 09/02/2021 SERVICE TIME: 1:03 PM LOS: 0 days This patient has been screened for Care Management Transitional Planning Services. At this time, it does not appear this patient will require transition planning services. Should this change, and the patient require transition/discharge planning services during this admission, please call [phone]. Ziggy Velasquez RN September 02, 2021 1:04 PM SIGNATURE: Ziggy Velasuqez RN PATIENT NAME: Rani Forde DATE: September 02, 2021 TIME: 1:02 PM PAGER/CONTACT #: [phone] Normal [facility] CONSULTon 09-02-2021 CONSULT HNO ID: [id number] Author: Martin Blackman APRN.SONJA Service: Psychiatry Author Type: Nurse Practitioner Type: Consults Filed: 09/02/2021 3:25 PM Note Text: CL NEW - PSYCHIATRY INITIAL CONSULTATION NOTE SERVICE DATE: September 02, 2021 SERVICE TIME: 1430 CONSULTING SERVICE : Psychiatry, requested by Dr. Waters REASON FOR CONSULTATION: Hx of ADHD, medication adjustment IDENTIFYING INFO: Ms. Forde is a 31 year old female from [place], [place]. HISTORY OF PRESENT ILLNESS : Ms Forde is a 31 year old female admitted to the hospital for work up of recent seizures vs syncopal events. She initially presented to [facility] ED and was transferred to [place] for further management due to availability of services. She has a PMH significant for Depression, Anxiety, ADHD, migraines, fibromyalgia and GERD. Psychiatry was consulted for psychotropic medication management. Follows with Dr Guallpa for management of ADHD and anxiety. Being prescribed Adderall 10mg BID and Hydroxyzine 25mg TID PRN anxiety. States she has lost 60lb since starting on Adderall in March 2021. When she brought this up to her provider she states she was told most patients like to lose weight and that nothing was done about the medication. Also endorses little to no appetite and increased anxiety since being put on Adderall. Previously on Concerta, but did not do well on that either. Has only taken Hydroxyzine once or twice for anxiety and has not found it helpful. She is being prescribed Hydroxyzine by her general provider as she said that her Psychiatrist told her he does not manage anxiety. No previous inpatient admission, SI, attempts. No delusions, paranoia. Smokes ~1 blunt daily with her significant other. Denies alcohol and all other illicit drug abuse. + hx of trauma. Has not done trauma based therapy, but interested in talking with someone in the future. No nightmares. Denies current SI/HI/AVH Does Patient Have Any Suicidal Ideations: No STRESSORS: 1. Seizure/syncope 2. Weight loss 3. Anxiety COLLATERAL INFORMATION: EMR PSYCHIATRIC REVIEW OF SYMPTOMS: Depression: + Sleep disturbance with no suicidal thoughts, intent or plan Libertad: Denies any history of hypomanic or manic episodes. Psychosis: Denies any auditory / visual hallucination or paranoid ideation. PEDRO: Excessive worry more than not, Difficulty controlling worry, Restless / Keyed up, Fatigued, Irritable and Sleep disturbance Panic: Tachycardia, Dyspnea, Nausea and Denies any symptoms of panic. OCD: Denies any symptoms of OCD. PTSD: Experienced/witnessed trauma that threatened one's integrity. The remainder was reviewed and unremarkable. MEDICAL REVIEW OF SYSTEMS: Pertinent Positives: seizure vs syncope The remainder was reviewed and unremarkable. PSYCHIATRIC HISTORY: Diagnoses: Anxiety, depression, ADHD Current Psychiatrist: Dr Guallpa Current Therapist: None Psychiatric Hospitalization(s): None History of Suicide Attempts: None Previous Psychiatric Medication Trials: Concertfatemeh Current Outpatient Psychiatric Medications: Adderall 10mg BID Elavil 25mg HS (migraines) Hydroxyzine 25mg TID PRN anxiety SUBSTANCE ABUSE HISTORY: Alcohol: No history of use or dependence Marijuana: Daily use. 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 FAMILY PSYCHIATRIC HISTORY: Mother- depression Maternal grandmother- depression FAMILY HISTORY Problem Relation Age of Onset - other (BLADDER Cancer) Father PAST MEDICAL HISTORY Diagnosis Date - Arthritis - Asthma - Chiari I malformation (HCC) - Depression - Thyroid disease PAST SURGICAL HISTORY Procedure Laterality Date - REMOVAL OF OVARIAN CYST(S) Left 08/18/2017 Current Facility-Administered Medications Medication Dose Route Frequency - NaCl 0.9% iv flush bag 20 mL INTRAVENOUS PRN - sodium chloride 0.9 % (flush) 3-5 mL (BD POSIFLUSH) 3-5 mL INTRAVENOUS q 12 H - ondansetron (PF) 4 mg injection (ZOFRAN) 4 mg INTRAVENOUS q 6 H PRN ALLERGIES Allergen Reactions - Adhesive Rash - Chocolate Swelling - Latex Itching PATIENT DATA: Generalized Anxiety Disorder Scale (PEDRO-7) No flowsheet data found.(0-4) minimal anxiety, (5-9) mild anxiety, (10-14) moderate anxiety, (15-21) severe anxiety Patient Health Questionnaire (PHQ-9) PHQ-9 01/07/2017 Score 10 (0-4) minimal depression, (5-9) mild depression, (10-14) moderate depression, (15-19) moderately severe depression, (20-27) riki (more content not included)... Normal [facility] HISTORY PHYSICALon HISTORY PHYSICAL HNO ID: [id number] Author: Cherelle Garcia DO Service: General Internal Medicine Author Type: Physician Type: HANDP Filed: 09/03/2021 12:44 AM Note Text: INTERNAL MEDICINE HANDP EXAMINATION SERVICE DATE: 09/02/2021 SERVICE TIME: 5:17 PM PRIMARY CARE PHYSICIAN: Chandan Boss DO Subjective CHIEF COMPLAINT: Syncope HISTORY OF PRESENT ILLNESS: Ms. Forde is a 31 year with PMH of Depression, Anxiety, ADHD, migraines, fibromyalgia and GERD who presented to the from [facility] after she sustained episode of syncope.Recently patient started taking amitriptiline after the episode of severe migraine headache. On 09/01 she took her bedtime dose of TCA went to bed, received phone call from her boyfriend, stood up from the bed and after making few steps had an episode of LOC. As per her mother and BF she had no stool or urine incontinence, no tonic or clonic jerks, oral foaming. She partially regained consciousness and had repeated episode, after her BF held her to ambulate. Patient denied chest pain, shortness of breath, vomiting, diarrhea. Called EMS. In the ER: potassium 3.3, otherwise lab unremarkable. Brain CT - Chiari I malformation. Patient was transferred to . Off note, for her ADHD patient was taking 10mg Adderall admitted weight loss 60 pounds over 6 month due to lack of appetite. Admitted poor fluid intake. PAST MEDICAL HISTORY Diagnosis Date - Arthritis - Asthma - Chiari I malformation (HCC) - Depression - Thyroid disease PAST SURGICAL HISTORY Procedure Laterality Date - REMOVAL OF OVARIAN CYST(S) Left 08/18/2017 FAMILY HISTORY Problem Relation Age of Onset - other (BLADDER Cancer) Father Social History Tobacco Use - Smoking status: Current Every Day Smoker Types: Cigarettes - Smokeless tobacco: Never Used Substance Use Topics - Alcohol use: No - Drug use: Yes Types: Marijuana MEDICATIONS: dextroamphetamine-amph etamine (ADDERALL) 10 mg tablet, , Disp: , Rfl: metroNIDAZOLE (FLAGYL) 500 mg tablet, , Disp: , Rfl: promethazine (PHENERGAN) 25 mg tablet, , Disp: , Rfl: nicotine (NICODERM) 21 mg/24 hr, , Disp: , Rfl: ibuprofen (MOTRIN) 600 mg tablet, , Disp: , Rfl: MEE 0.35 mg tablet, , Disp: , Rfl: GAVILYTE-G 236-22.74-6.74 -5.86 gram suspension, , Disp: , Rfl: traZODone (DESYREL) 50 mg tablet, , Disp: , Rfl: amitriptyline (ELAVIL) 50 mg tablet, , Disp: , Rfl: dicyclomine (BENTYL) 20 mg tablet, , Disp: , Rfl: HYDROcodone-acetaminop hen (NORCO) 5-325 mg per tablet, , Disp: , Rfl: LORazepam (ATIVAN) 1 mg tablet, , Disp: , Rfl: oxyCODONE-acetaminophe n (PERCOCET) 5-325 mg tablet, , Disp: , Rfl: traMADol (ULTRAM) 50 mg tablet, , Disp: , Rfl: ondansetron orally disintegrating (ZOFRAN ODT) 4 mg disintegrating tablet, Take 1 tablet by mouth every 4 hours as needed for Nausea/Vomiting., Disp: 8 tablet, Rfl: 0 ALLERGIES Allergen Reactions - Adhesive Rash - Chocolate Swelling - Latex Itching COMPLETE REVIEW OF SYSTEMS: Review of Systems Constitutional: Positive for appetite change and fatigue. Skin: Negative. HENT: Negative. Eyes: Negative. Respiratory: Negative. Cardiovascular: Negative. Gastrointestinal: Positive for constipation, early satiety and nausea. Negative for diarrhea and vomiting. Endocrine: Negative. Genitourinary: Negative. Hematologic/Lymphatic: Negative. Allergic/Immunologic: Negative. Psychiatric: Negative. Objective PHYSICAL EXAM: Patient Vitals for the past 24 hrs: BP Temp Temp src Pulse Resp SpO2 09/02/21 0755 110/79 36.4 ?C (97.5 ?F) Oral 70 18 99 % There is no height or weight on file to calculate BMI. Physical Exam HENT: Head: Normocephalic. Nose: Nose normal. Mouth/Throat: Mouth: Mucous membranes are dry. Eyes: General: No scleral icterus. Extraocular Movements: Extraocular movements intact. Conjunctiva/sclera: Conjunctivae normal. Pupils: Pupils are equal, round, and reactive to light. Cardiovascular: Rate and Rhythm: Normal rate. Pulses: Normal pulses. Heart sounds: Normal heart sounds. No murmur heard. Pulmonary: Effort: Pulmonary effort is normal. No respiratory distress. Breath sounds: No wheezing or rales. Abdominal: General: Abdomen is flat. There is no distension. Tenderness: There is no abdominal tenderness. There is no guarding. Musculoskeletal: General: No swelling. Normal range of motion. Cervical back: No rigidity. Right lower leg: No edema. Left lower leg: No edema. Skin: General: Skin is warm. Coloration: Skin is not jaundiced. Neurological: Mental Status: She is alert and oriented to person, place, and time. Comments: On neuro exam - patient is AOX3 Motor strength in all limbs 4/5 Patient admitted that it is new to her and she feeling tired overall. Low amplitude hand tremor. CN - tongue fasciculations noticed. Psychiatric: Behavior: Behavior normal. Thought Content: Thought content normal. Judgm (more content not included)... Normal [facility] NURSING PROGon 09-02-2021 NURSING PROG HNO ID: [id number] Author: April Vergara RN Service: Nursing Author Type: Registered Nurse Type: Nursing Progress Note Filed: 09/02/2021 7:35 PM Note Text: Nursing Progress Note Patient Name: Rani Forde Patient Location: [facility]/ __ Transfer Note: Patient transferred into room/unit PKT 35 in stable condition. Actions taken: Patient belongings with patient, oriented to room and call light. No further needs at this time. All safety measures intact, will continue to monitor. 1830- Pt c/o chronic back pain, requesting tylenol or motrin. Page sent to hospitalist, order received for tylenol. This note was completed by: April Vergara [facility] CT Abdomen/Pelvis w/ Contras ton 08-04-2021 CT Abdomen/Pelvis w/ Contrast Patient Name: RANI FORDE Computed Tomography ACCESSION EXAM DATE/TIME PROCEDURE ORDERING PROVIDER [id number] 08/03/2021 22:[address] Abdomen/Pelvis w/ IV MD JOVI, MARGARITA D Contrast (IV Onl CPT code 60413 Q9967 Reason For Exam (CT Abdomen/Pelvis w/ IV Contrast (IV Onl) lower abdominal pain Report CT ABDOMEN AND PELVIS WITH CONTRAST CLINICAL INDICATION: Lower abdominal pain TECHNIQUE: Transaxial sequence through the abdomen and pelvis with 3 mm reconstruction following dynamic intravenous infusion of 75 mL of Isovue-370 intravenous contrast media. Enteric contrast was not administered. Coronal and sagittal reconstructions included. Dose reduction was employed with automated exposure control. COMPARISON: 03/13/2020 FINDINGS: Limitations:No significant. Lung base: Mild bibasilar atelectasis. Liver: Tiny hypodensity in the inferior right hepatic lobe too small to definitively characterize. Gallbladder/Biliary tree: Gallbladder appears within normal limits. No intra or extrahepatic biliary ductal dilatation Spleen: No significant abnormality detected. Pancreas: Homogeneous without adjacent stranding or other significant abnormality. Adrenals: Circumscribed low density nodule in the left adrenal gland with some peripheral calcification is unchanged from prior studies and likely benign. Right adrenal gland is unremarkable. Kidneys/pelvic organs: Symmetric contrast enhancement without obstructive uropathy. No obstructing calculi. Uterus demonstrates a normal CT appearance for patient's age. Urinary bladder is relatively underdistended but within normal limits. Right ovary is somewhat prominent in size and possibly contains a corpus luteum. GI tract: A few prominent fluid-filled loops of small bowel without discrete transition point to suggest obstruction. Normal appendix.. Moderate amount of stool in the cecum. Slight gaseous distention involving portions of the bowel. No colonic wall thickening or pericolonic stranding Computed Tomography Report Additional findings: No pneumatosis or pneumoperitoneum. Trace pelvic ascites nonspecific given patient's age and gender. Major vessels enhance normally. Multiple prominent mesenteric and retroperitoneal lymph nodes without bulky adenopathy. Osseous structures/soft tissues: Osseous structures appear age-appropriate and intact. No significant soft tissue abnormality detected IMPRESSION: 1. A few prominent fluid-filled loops of small bowel without evidence of obstruction may reflect mild localized ileus or less likely enteritis. 2. Somewhat prominent appearing right ovary which is likely within normal limits given patient's age. This could be further assessed with ultrasound if clinically warranted. Report Dictated on Final Dictating Physician: MD CHOWDHURY VLADIMIR Signed Date and Time: 08/03/2021 11:18 pm Signed by: MD CHOWDHURY VLADIMIR Transcribed Date and Time: 08/03/2021 11:19 Normal [facility] CT Head or Brain w/o Contras ton 08-04-2021 CT Head or Brain w/o Contrast [facility]: [id number] Tom[facility] ACCESSION EXAM DATE/TIME PROCEDURE ORDERING PROVIDER [id number] 08/03/2021 22:[address] Head or Brain w/o MD JOVI, MARGARITA D Contrast CPT code 50733 Reason For Exam (CT Head or Brain w/o Contrast) headache, history of chiari malformation Report CT BRAIN WITHOUT CONTRAST CLINICAL INDICATION: headache, history of chiari malformation TECHNIQUE: Noncontrast CT scan of the brain. Multiplanar reformations. COMPARISON: MRI from 07/11/2016, CT brain from 03/26/2016 FINDINGS: Chiari I malformation again noted. No hemorrhage, mass effect, or midline shift. No hydrocephalus. No evidence of acute infarct. IMPRESSION: 1. No acute finding. No significant change. Report Dictated on Workstation: DAVIN Final Dictating Physician: MD TURCIOS JOHN R Signed Date and Time: 08/03/2021 11:14 pm Signed by: MD TURCIOS JOHN R Transcribed Date and Time: 08/03/2021 11:15 Normal [facility] Chlamydia and GC PCR Panelon 08-04-2021 Chlamydia and GC PCR Panel Chlamydia trachomatis PCR --> Status: F NOT Detected Chlamydia trachomatis Nucleic Acid NOT Detected by DNA Amplification using the [employer] System. Culture is the only recommended test in medical-legal cases such as suspected child abuse or molestation. Chlamydia trachomatis Nucleic Acid NOT Detected by DNA Amplification using the Cepheid System. Culture is the only recommended test in medical-legal cases such as suspected child abuse or molestation. Neisseria gonorrhoeae PCR --> Status: F NOT Detected Neisseria gonorrhoeae Nucleic Acid NOT Detected by DNA Amplification using the Cepheid System. Culture is the only recommended test in medical-legal cases such as suspected child abuse or molestation. Neisseria gonorrhoeae Nucleic Acid NOT Detected by DNA Amplification using the Cepheid System. Culture is the only recommended test in medical-legal cases such as suspected child abuse or molestation. Normal [facility] Comment on above: Performed By: #### C TNGP #### [facility] [address] [place] [address] Complete Urinalysison 2021 Appearance (U) Clear Normal Clear [facility] Comment on above: Result Comment: . Performed By: #### Q WAL2, DDI2, HEMDF, CMP3 #### [facility] [address] [facility] [place] [address] Bilirubin,Urine Negative Normal Negative [facility] Comment on above: Result Comment: . Performed By: #### Q WAL2, DDI2, HEMDF, CMP3 #### [facility] [address] [place] [address] Color (U) LIGHT YELLOW Normal Lt. Yellow [facility] Comment on above: Result Comment: . Performed By: #### Q WAL2, DDI2, HEMDF, CMP3 #### [facility] [address] [place] [address] Glucose Ql (U) Normal Normal Normal (<70) [facility] Comment on above: Result Comment: . Performed By: #### Q WAL2, DDI2, HEMDF, CMP3 #### [facility] [address] [place] [address] Ketone,Urine Negative Normal Negative [facility] Comment on above: Result Comment: . Performed By: #### Q WAL2, DDI2, HEMDF, CMP3 #### [facility] [address] [place] [address] Leukocytes,Urine Negative Normal Negative [facility] Comment on above: Result Comment: . Performed By: #### Q WAL2, DDI2, HEMDF, CMP3 #### [facility] [address] [place] [address] Nitrites,Urine Negative Normal Negative [facility] Comment on above: Result Comment: . Performed By: #### Q WAL2, DDI2, HEMDF, CMP3 #### [facility] [address] [place] [address] Occult Blood,Urine Negative Normal Negative [facility] Comment on above: Result Comment: . Performed By: #### Q WAL2, DDI2, HEMDF, CMP3 #### [facility] [address] [place] [address] pH,Urine 8.0 Normal 5.0-8.0 [facility] Comment on above: Result Comment: . Performed By: #### Q WAL2, DDI2, HEMDF, CMP3 #### [facility] [address] [place] [address] Specific [place],Urine 1.025 Normal 1.005 - 1.030 [facility] Comment on above: Result Comment: . Performed By: #### Q WAL2, DDI2, HEMDF, CMP3 #### [facility] [address] [place] [address] Total Protein,Urine Negative Normal Negative [facility] Comment on above: Result Comment: . Performed By: #### Q WAL2, DDI2, HEMDF, CMP3 #### [facility] [address] [place] [address] Urobilinogen,Urine Normal Normal Normal (0-1) [facility] Comment on above: Result Comment: . Performed By: #### Q WAL2, DDI2, HEMDF, CMP3 #### [facility] [address] [place] [address] HCG,Urine Qualon 08-04-2021 Beta HCG ( test) Ql (U) Negative Normal Negative [facility] Comment on above: Result Comment: Lawanda lemos note: Very dilute urine specimens, as indicated by a low specific gravity, may not contain applications sales representative levels of hCG. If is still suspected, a first morning urine specimen should be collected 48 hours later and tested. is the most common reason for HCG in urine, although choriocarcinoma, hydatidiform mole, and certain nontropho- blastic malignancies also result in detectable urinary HCG levels. Sensitivity = 20mIU/mL. Performed By: #### Q WAL2, DDI2, HEMDF, CMP3 #### [facility] [address] [place] [address] Basic Metabolic Panelon Calcium [Mass/Vol] 9.3 mg/dL Normal 8.4-10.4 [facility] Comment on above: Performed By: #### Q WAL2, DDI2, HEMDF, CMP3 #### [facility] [address] [place] [address] Glucose [Mass/Vol] 101 mg/dL High 70-100 [facility] Comment on above: Performed By: #### Q WAL2, DDI2, HEMDF, CMP3 #### [facility] [address] [place] [address] Urea nitrogen [Mass/Vol] 13 mg/dL Normal 9-20 [facility] Comment on above: Performed By: #### Q WAL2, DDI2, HEMDF, CMP3 #### [facility] [address] [place] [address] Anion gap [Moles/Vol] 3 mmol/L Normal 3-13 [facility] Comment on above: Performed By: #### Q WAL2, DDI2, HEMDF, CMP3 #### [facility] [address] [place] [address] CO2 [Moles/Vol] 27 mmol/L Normal 22-30 [facility] Comment on above: Performed By: #### Q WAL2, DDI2, HEMDF, CMP3 #### [facility] [address] [place] [address] Creatinine [Mass/Vol] 0.90 mg/dL Normal 0.52-1.25 [facility] Comment on above: Performed By: #### Q WAL2, DDI2, HEMDF, CMP3 #### [facility] [address] [place] [address] GFR/1.73 sq M.predicted among blacks MDRD (S/P/Bld) [Vol rate/Area] mL/min/{1.73_m2} Normal >60 [facility] Comment on above: Performed By: #### Q WAL2, DDI2, HEMDF, CMP3 #### [facility] [address] [place] [address] GFR/1.73 sq M.predicted among non-blacks MDRD (S/P/Bld) [Vol rate/Area] 86.4 mL/min/{1.73_m2} Normal >60 [facility] Comment on above: Result Comment: KDIG O guidelines provide the following GFR categories: Stage GFR(ml/min/1.73 m2) Terms G1 >=90 Normal or high G2 60-89 Mildly decreased* G3a 45-59 Mildly to moderately decreased G3b 30-44 Moderately to severely decreased G4 15-29 Severely decreased G5 <15 Kidney failure *Relative to young adult level. In the absence of evidence of kidney damage, neither GFR category G1 nor G2 fulfill the criteria for CKD. The CKD-EPI equation is validated in individuals 18 years of age and older. Currently the best equation for estimating glomerular filtration rate (GFR) from serum creatinine in children is the Bedside Casillas equation. It is less accurate in patients with extremes of muscle mass, restriction of dietary protein, ingestion of creatine, extra-renal metabolism of creatinine, or treatment with medications that affect renal tubular creatinine secretion. Performed By: #### Q WAL2, DDI2, HEMDF, CMP3 #### [facility] [address] [place] [address] Chloride [Moles/Vol] 105 mmol/L Normal 98-107 [facility] Comment on above: Performed By: #### Q WAL2, DDI2, HEMDF, CMP3 #### [facility] [address] [place] [address] Potassium [Moles/Vol] 3.9 mmol/L Normal 3.5-5.1 [facility] Comment on above: Performed By: #### Q WAL2, DDI2, HEMDF, CMP3 #### [facility] [address] [place] [address] Sodium [Moles/Vol] 135 mmol/L Normal 135-145 [facility] Comment on above: Performed By: #### Q WAL2, DDI2, HEMDF, CMP3 #### [facility] [address] [place] [address] Anion gap [Moles/Vol] 3 mmol/L 3 - 13 mmol/L [facility] Calcium [Mass/Vol] 9.3 mg/dL 8.4 - 10. 4 mg/dL [facility] Chloride [Moles/Vol] 105 mmol/L 98 - 10 7 mmol/L [facility] CO2 [Moles/Vol] 27 mmol/L 22 - 30 mmol/L [facility] Creatinine [Mass/Vol] 0.9 mg/dL 0.52 - 1.25 mg/dL [facility] IF NonAfrican Taiwanese 86.4 mL/min >60 [facility] Comment on above: KDIGO guidelines pro vide the following GFR categories: Stage GFR(ml/min/1.73 m2) Terms G1 >=90 Normal or high G2 60-89 Mildly decreased* G3a 45-59 Mildly to moderately decreased G3b 30-44 Moderately to severely decreased G4 15-29 Severely decreased G5 <15 Kidney failure *Relative to young adult level. In the absence of evidence of kidney damage, neither GFR category G1 nor G2 fulfill the criteria for CKD. The CKD-EPI equation is validated in individuals 18 years of age and older. Currently the best equation for estimating glomerular filtration rate (GFR) from serum creatinine in children is the Bedside Casillas equation. It is less accurate in patients with extremes of muscle mass, restriction of dietary protein, ingestion of creatine, extra-renal metabolism of creatinine, or treatment with medications that affect renal tubular creatinine secretion. GFR/1.73 sq M.predicted among blacks MDRD (S/P/Bld) [Vol rate/Area] mL/min/{1.73_m2} >60 mL/min [facility] Glucose [Mass/Vol] 101 mg/dL High 70 - 100 mg/dL [facility] Interpretation and review of laboratory results Abnormal [facility] Potassium [Moles/Vol] 3.9 mmol/L 3.5 - 5.1 mmol/L [facility] Sodium [Moles/Vol] 135 mmol/L 135 - 145 mmol/L [facility] Urea nitrogen (BldV) [Mass/Vol] 13 mg/dL 9 - 20 mg/dL [facility] Test Performed by [facility], [address] , [place], [place] [id number] [place] [address] [facility] CT Abdomen and Pelvis W cont rast Benji 08-03-2021 Patient Name: RANI BANKS Computed Tomography ACCESSION EXAM DATE/TIME PROCEDURE ORDERING PROVIDER [id number] 08/03/2021 22:[address] Abdomen/Pelvis w/ IV MD JOVI, MARGARITA [place] Contrast (IV Onl CPT code 95168 Q9967 Reason For Exam (CT Abdomen/Pelvis w/ IV Contrast (IV Onl) lower abdominal pain Report CT ABDOMEN AND PELVIS WITH CONTRAST CLINICAL INDICATION: Lower abdominal pain TECHNIQUE: Transaxial sequence through the abdomen and pelvis with 3 mm reconstruction following dynamic intravenous infusion of 75 mL of Isovue-370 intravenous contrast media. Enteric contrast was not administered. Coronal and sagittal reconstructions included. Dose reduction was employed with automated exposure control. COMPARISON: 03/13/2020 FINDINGS: Limitations:No significant. Lung base: Mild bibasilar atelectasis. Liver: Tiny hypodensity in the inferior right hepatic lobe too small to definitively characterize. Gallbladder/Biliary tree: Gallbladder appears within normal limits. No intra or extrahepatic biliary ductal dilatation Spleen: No significant abnormality detected. Pancreas: Homogeneous without adjacent stranding or other significant abnormality. Adrenals: Circumscribed low density nodule in the left adrenal gland with some peripheral calcification is unchanged from prior studies and likely benign. Right adrenal gland is unremarkable. Kidneys/pelvic organs: Symmetric contrast enhancement without obstructive uropathy. No obstructing calculi. Uterus demonstrates a normal CT appearance for patient's age. Urinary bladder is relatively underdistended but within normal limits. Right ovary is somewhat prominent in size and possibly contains a corpus luteum. GI tract: A few prominent fluid-filled loops of small bowel without discrete transition point to suggest obstruction. Normal appendix.. Moderate amount of stool in the cecum. Slight gaseous distention involving portions of the bowel. No colonic wall thickening or pericolonic stranding Computed Tomography Report Additional findings: No pneumatosis or pneumoperitoneum. Trace pelvic ascites nonspecific given patient's age and gender. Major vessels enhance normally. Multiple prominent mesenteric and retroperitoneal lymph nodes without bulky adenopathy. Osseous structures/soft tissues: Osseous structures appear age-appropriate and intact. No significant soft tissue abnormality detected IMPRESSION: 1. A few prominent fluid-filled loops of small bowel without evidence of obstruction may reflect mild localized ileus or less likely enteritis. 2. Somewhat prominent appearing right ovary which is likely within normal limits given patient's age. This could be further assessed with ultrasound if clinically warranted. Report Dictated on --- Final --- Dictating Physician: MD CHOWDHURY VLADIMIR Signed Date and Time: 08/03/2021 11:18 pm Signed by: MD CHOWDHURY VLADIMIR Transcribed Date and Time: 08/03/2021 11:19 [facility] Result, Unknown Provider - 08/03/2021 Patient Name: RANI FORDE Computed Tomography ACCESSION EXAM DATE/TIME PROCEDURE ORDERING PROVIDER [id number] 08/03/2021 22:[address] Abdomen/Pelvis w/ IV MD JOVI, MARGARITA Becca Contrast (IV Onl CPT code 05222 Q9967 Reason For Exam (CT Abdomen/Pelvis w/ IV Contrast (IV Onl) lower abdominal pain Report CT ABDOMEN AND PELVIS WITH CONTRAST CLINICAL INDICATION: Lower abdominal pain TECHNIQUE: Transaxial sequence through the abdomen and pelvis with 3 mm reconstruction following dynamic intravenous infusion of 75 mL of Isovue-370 intravenous contrast media. Enteric contrast was not administered. Coronal and sagittal reconstructions included. Dose reduction was employed with automated exposure control. COMPARISON: 03/13/2020 FINDINGS: Limitations:No significant. Lung base: Mild bibasilar atelectasis. Liver: Tiny hypodensity in the inferior right hepatic lobe too small to definitively characterize. Gallbladder/Biliary tree: Gallbladder appears within normal limits. No intra or extrahepatic biliary ductal dilatation Spleen: No significant abnormality detected. Pancreas: Homogeneous without adjacent stranding or other significant abnormality. Adrenals: Circumscribed low density nodule in the left adrenal gland with some peripheral calcification is unchanged from prior studies and likely benign. Right adrenal gland is unremarkable. Kidneys/pelvic organs: Symmetric contrast enhancement without obstructive uropathy. No obstructing calculi. Uterus demonstrates a normal CT appearance for patient's age. Urinary bladder is relatively underdistended but within normal limits. Right ovary is somewhat prominent in size and possibly contains a corpus luteum. GI tract: A few prominent fluid-filled loops of small bowel without discrete transition point to suggest obstruction. Normal appendix.. Moderate amount of stool in the cecum. Slight gaseous distention involving portions of the bowel. No colonic wall thickening or pericolonic stranding Computed Tomography Report Additional findings: No pneumatosis or pneumoperitoneum. Trace pelvic ascites nonspecific given patient's age and gender. Major vessels enhance normally. Multiple prominent mesenteric and retroperitoneal lymph nodes without bulky adenopathy. Osseous structures/soft tissues: Osseous structures appear age-appropriate and intact. No significant soft tissue abnormality detected IMPRESSION: 1. A few prominent fluid-filled loops of small bowel without evidence of obstruction may reflect mild localized ileus or less likely enteritis. 2. Somewhat prominent appearing right ovary which is likely within normal limits given patient's age. This could be further assessed with ultrasound if clinically warranted. Report Dictated on --- Final --- Dictating Physician: MD CHOWDHURY VLADIMIR Signed Date and Time: 08/03/2021 11:18 pm Signed by: MD CHOWDHURY VLADIMIR Transcribed Date and Time: 08/03/2021 11:19 [facility] Work Phone: CT Abdomen and Pelvis W cont rast IVOrdered By: Unknown Result on 08-03-[address] [facility] [address] Head WO Contraston 2021 Patient Name: RANI BANKS Computed Tomography ACCESSION EXAM DATE/TIME PROCEDURE ORDERING PROVIDER [id number] 08/03/2021 22:[address] Head or Brain w/o MD JOVI, MARGARITA D Contrast CPT code 44681 Reason For Exam (CT Head or Brain w/o Contrast) headache, history of chiari malformation Report CT BRAIN WITHOUT CONTRAST CLINICAL INDICATION: headache, history of chiari malformation TECHNIQUE: Noncontrast CT scan of the brain. Multiplanar reformations. COMPARISON: MRI from 07/11/2016, CT brain from 03/26/2016 FINDINGS: Chiari I malformation again noted. No hemorrhage, mass effect, or midline shift. No hydrocephalus. No evidence of acute infarct. IMPRESSION: 1. No acute finding. No significant change. Report Dictated on Workstation: DAVIN --- Final --- Dictating Physician: MD TURCIOS JOHN R Signed Date and Time: 08/03/2021 11:14 pm Signed by: MD TURCIOS JOHN R Transcribed Date and Time: 08/03/2021 11:15 [facility] Junior Turcios MD - 08/03/2021 Patient Name: RANI FORDE Computed Tomography ACCESSION EXAM DATE/TIME PROCEDURE ORDERING PROVIDER [id number] 08/03/2021 22:[address] Head or Brain w/o MD JOVI, MARGARITA D Contrast CPT code 52011 Reason For Exam (CT Head or Brain w/o Contrast) headache, history of chiari malformation Report CT BRAIN WITHOUT CONTRAST CLINICAL INDICATION: headache, history of chiari malformation TECHNIQUE: Noncontrast CT scan of the brain. Multiplanar reformations. COMPARISON: MRI from 07/11/2016, CT brain from 03/26/2016 FINDINGS: Chiari I malformation again noted. No hemorrhage, mass effect, or midline shift. No hydrocephalus. No evidence of acute infarct. IMPRESSION: 1. No acute finding. No significant change. Report Dictated on Workstation: DAVIN --- Final --- Dictating Physician: MD TURCIOS JOHN R Signed Date and Time: 08/03/2021 11:14 pm Signed by: MD TURCIOS JOHN R Transcribed Date and Time: 08/03/2021 11:15 [facility] Work Phone: CT Head WO ContrastOrdered B y: Junior Turcios on 08-03-2021 [facility] Work Phone: HGC Urine Qual [place] 2021 Beta HCG ( test) Ql (U) Negative Negative NA [facility] Comment on above: Please note: Very di lute urine specimens, as indicated by a low specific gravity, may not contain applications sales representative levels of hCG. If is still suspected, a first morning urine specimen should be collected 48 hours later and tested. is the most common reason for HCG in urine, although choriocarcinoma, hydatidiform mole, and certain nontropho- blastic malignancies also result in detectable urinary HCG levels. Sensitivity = 20mIU/mL. Test Performed by [facility], [address] , [place], [place] [address] [place] [address] [facility] Hemogramon 08-03-2021 Erythrocyte distribution width (RBC) [Ratio] 13.4 % Normal 11.5-14.5 [facility] Comment on above: Performed By: #### Q WAL2, DDI2, HEMDF, CMP3 #### [facility] [address] [place] [address] Hematocrit (Bld) [Volume fraction] 36.0 % Normal 35.0-47.0 [facility] Comment on above: Performed By: #### Q WAL2, DDI2, HEMDF, CMP3 #### [facility] [address] [place] [address] Hemoglobin (Bld) [Mass/Vol] 12.0 g/dL Normal 11.7-16.0 [facility] Comment on above: Performed By: #### Q WAL2, DDI2, HEMDF, CMP3 #### [facility] [address] [place] [address] MCH (RBC) [Entitic mass] 28.8 pg Normal 26.0-34.0 [facility] Comment on above: Performed By: #### Q WAL2, DDI2, HEMDF, CMP3 #### [facility] [address] [place] [address] MCHC 33.4 % Normal 32.0-36.0 [facility] Comment on above: Performed By: #### Q WAL2, DDI2, HEMDF, CMP3 #### [facility] [address] [place] [address] MCV (RBC) [Entitic vol] 86.1 fL Normal 79.0-98.0 [facility] Comment on above: Performed By: #### Q WAL2, DDI2, HEMDF, CMP3 #### [facility] [address] [place] [address] Platelet mean volume (Bld) [Entitic vol] 7.9 fL Normal 7.4-10.4 [facility] Comment on above: Performed By: #### Q WAL2, DDI2, HEMDF, CMP3 #### [facility] [address] [place] [address] Platelets (Bld) [#/Vol] 224 10*3/uL Normal 140-440 [facility] Comment on above: Performed By: #### Q WAL2, DDI2, HEMDF, CMP3 #### [facility] [address] [place] [address] RBC (Bld) [#/Vol] 4.18 10*6/uL Normal 3.80-5.20 [facility] Comment on above: Performed By: #### Q WAL2, DDI2, HEMDF, CMP3 #### [facility] [address] [place] [address] WBC (Bld) [#/Vol] 7.2 10*3/uL Normal 3.6-10.7 [facility] Comment on above: Performed By: #### Q WAL2, DDI2, HEMDF, CMP3 #### [facility] [address] [place] [address] Hemogram (CBC)on 08-03-2021 Hematocrit (Bld) [Volume fraction] 36.0 % 35.0 - 47.0 % [facility] Hemoglobin.gastrointes tinal spec 1 Ql (Stl) 12.0 g/dL 11.7 - 16.0 g/dL [facility] MCH (RBC) [Entitic mass] 28.8 pg 26.0 - 34.0 pg [facility] MCHC (RBC) [Mass/Vol] 33.4 % 32.0 - 36.0 % [facility] MCV (RBC) [Entitic vol] 86.1 fL 79.0 - 98.0 fL [facility] Platelet distribution width (Bld) [Ratio] 13.4 % 11.5 - 14.5 % [facility] Platelet mean volume (Bld) [Entitic vol] 7.9 fL 7.4 - 10.4 fL [facility] Platelets (Bld) [#/Vol] 224 10*3/uL 140 - 440 10*3/uL [facility] RBC (Bld) [#/Vol] 4.18 10*6/uL 3.80 - 5.2 0 10*6/uL [facility] WBC (Bld) [#/Vol] 7.2 10*3/uL 3.6 - 10.7 10*3/uL [facility] Test Performed by [facility], [address] , [address] LAB [facility] No Panel Informationon 08-03 Radiology Study observation (narrative) [facility] Work Phone: Urinalysison 08-03-2021 Appearance (U) Clear Clear NA [facility] Comment on above: . Bilirubin Urine Negative Negative mg/dL [facility] Comment on above: . Color (U) LIGHT YELLOW Lt. Yellow NA [facility] Comment on above: . Glucose, Ur Normal Normal (<70) mg/dL [facility] Comment on above: . Ketones Ql (U) Negative Negative mg/dL [facility] Comment on above: . LEUKOCYTES, UA Negative Negative Zainab/uL [facility] Comment on above: . Nitrite, Urine Negative Negative NA [facility] Comment on above: . Occult Blood,Urine Negative Negative mg/dL [facility] Comment on above: . pH (U) 8.0 [pH] [facility] Comment on above: . Specific [place], Urine 1.025 [facility] Comment on above: . Total Protein, Urine Negative Negative mg/dL [facility] Comment on above: . Urobilinogen, Urine Normal Normal ( 0-1) mg/dL [facility] Comment on above: . Test Performed by [facility], [address] , [address] LAB [facility] Add On Lab Teston 03-14-2020 Sodium [Moles/Vol] Rejected [facility], [place] Comment on above: No specimen availabl e for addon. Test Performed by [facility], [address] [place] [address] [facility], [place] Sodium [Moles/Vol] Accepted [place], [place] Comment on above: Specimen available & acceptable for analysis. Test Performed by [facility], [address] [place] [address] [place], [place] CBCon 03-14-2020 Erythrocyte distribution width (RBC) [Ratio] 13.4 % 11.5 - 14.5 % [place] Hematocrit (Bld) [Volume fraction] 42.0 % 35 - 47 % [place] Hemoglobin (Bld) [Mass/Vol] 14.2 g/dL 11.7 - 16 g/dL [place] MCH (RBC) [Entitic mass] 30.4 pg 26 - 34 pg [place] MCHC (RBC) [Mass/Vol] 33.8 % 32 - 36 % [place] MCV (RBC) [Entitic vol] 90.2 fL 79 - 98 fL [place] Platelet mean volume (Bld) [Entitic vol] 8.7 fL 7.4 - 10.4 fL [place] Platelets (Bld) [#/Vol] 235 10*3/uL 140 - 440 10*3/uL [place] RBC (Bld) [#/Vol] 4.66 10*6/uL 3.8 - 5.2 10*6/uL [place] WBC (Bld) [#/Vol] 6.7 10*3/uL 3.6 - 10.7 10*3/uL [place] Test Performed by [facility], [address] [place] [address] [place] Comprehensive Metabolic Pane chester 03-14-2020 Albumin [Mass/Vol] 4.0 g/dL 3.5 - 5 g/dL [place] ALP [Catalytic activity/Vol] 55 U/L 38 - 126 U/L [place] ALT [Catalytic activity/Vol] 41 U/L High 0 - 34 U/L [place] Comment on above: The ALT test is perf ormed by an updated assay method. Please note that the reference intervals have been changed and are now sex specific. Anion gap [Moles/Vol] 7 mmol/L [place], [place] AST [Catalytic activity/Vol] 45 U/L 15 - 46 U/L [place] Bilirubin Ql (U) 0.3 mg/dL 0.2 - 1.3 mg/dL [place] Calcium [Mass/Vol] 8.9 mg/dL 8.4 - 10. 4 mg/dL [place] Chloride [Moles/Vol] 105 mmol/L 98 - 10 7 mmol/L [place] CO2 [Moles/Vol] 26 mmol/L 22 - 30 mmol/L [place] Creatinine [Mass/Vol] 0.7 mg/dL 0.52 - 1.25 mg/dL [place] EGFR IF NonAfrican Taiwanese >90.0 >60 mL/min [place] Comment on above: KDIGO guidelines pro vide the following GFR categories: Stage GFR(ml/min/1.73 m2) Terms G1 >=90 Normal or high G2 60-89 Mildly decreased* G3a 45-59 Mildly to moderately decreased G3b 30-44 Moderately to severely decreased G4 15-29 Severely decreased G5 <15 Kidney failure *Relative to young adult level. In the absence of evidence of kidney damage, neither GFR category G1 nor G2 fulfill the criteria for CKD. The CKD-EPI equation is validated in individuals 18 years of age and older. Currently the best equation for estimating glomerular filtration rate (GFR) from serum creatinine in children is the Bedside Casillas equation. It is less accurate in patients with extremes of muscle mass, restriction of dietary protein, ingestion of creatine, extra-renal metabolism of creatinine, or treatment with medications that affect renal tubular creatinine secretion. GFR/1.73 sq M predicted among blacks MDRD (S/P/Bld) [Vol rate/Area] mL/min/{1.73_m2} >60 mL/min [place] Glucose [Mass/Vol] 93 mg/dL 70 - 100 mg/dL [place] Interpretation and review of laboratory results Abnormal [place] Potassium [Moles/Vol] 3.9 mmol/L 3.5 - 5.1 mmol/L [place] Protein [Mass/Vol] 7.3 g/dL 6.3 - 8.2 g/dL [place] Sodium [Moles/Vol] 138 mmol/L 135 - 145 mmol/L [place] Urea nitrogen [Mass/Vol] 12 mg/dL 7 - 20 mg/dL [place] Test Performed by [facility], [address] [place] [address] [place], [place] Lipaseon 03-14-2020 Lipase [Catalytic activity/Vol] 69 U/L 23 - 300 U/L [place] Test Performed by [facility], [address] [place] [address] [place] US NON OB TRANSVAGINALon Patient Name: RANI BANKS ---Ultrasound--- Exam Date/Time 03/14/2020 15:19:49 EDT Exam US Transvaginal Ordering Physician VIJAY SCHMID Accession Number [id number] CPT4 Codes 98030 () Reason For Exam LLQ pain Report Pelvic ultrasound: 03/14/2020. CLINICAL INFORMATION: Left lower quadrant pain. FINDINGS: Sonographic examination of the pelvis was performed transvaginally only. The uterus is within normal limits in size measuring approximately 9.5 x 4.7 x 3.8 cm. The endometrial echo measures 14 mm which is within normal limits. Both ovaries were identified and are within normal limits in size. The right ovary measures approximately 4.3 x 3.3 x 2.6 cm. The left ovary measures approximately 3.0 x 2.8 x 1.9 cm. There is a sliver of free fluid in the cul-de-sac which is a nonspecific and not necessarily abnormal finding. IMPRESSION: No acute process. Report Dictated on --- Final --- Dictated: 03/14/2020 3:48 pm Dictating Physician: MD SUTHERLAND RISA Signed Date and Time: 03/14/2020 3:54 pm Signed by: MD SUTHERLAND RISA Transcribed Date and Time: 03/14/2020 3:48 [place], [place] ZayMike Incoming Radiology Results From [facility] 03/14/2020 3:55 PM EDT Patient Name: RANI FORDE ---Ultrasound--- Exam Date/Time 03/14/2020 15:19:49 EDT Exam US Transvaginal Ordering Physician [id number] PEMBERTON Accession Number [id number] CPT4 Codes 29702 () Reason For Exam LLQ pain Report Pelvic ultrasound: 03/14/2020. CLINICAL INFORMATION: Left lower quadrant pain. FINDINGS: Sonographic examination of the pelvis was performed transvaginally only. The uterus is within normal limits in size measuring approximately 9.5 x 4.7 x 3.8 cm. The endometrial echo measures 14 mm which is within normal limits. Both ovaries were identified and are within normal limits in size. The right ovary measures approximately 4.3 x 3.3 x 2.6 cm. The left ovary measures approximately 3.0 x 2.8 x 1.9 cm. There is a sliver of free fluid in the cul-de-sac which is a nonspecific and not necessarily abnormal finding. IMPRESSION: No acute process. Report Dictated on --- Final --- Dictated: 03/14/2020 3:48 pm Dictating Physician: MD SUTHERLAND RISA Signed Date and Time: 03/14/2020 3:54 pm Signed by: MD SUTHERLAND RISA Transcribed Date and Time: 03/14/2020 3:48 [place] Urinalysison 03-14-2020 Appearance (U) Clear Clear NA [place] Comment on above: . Bacteria, UA Moderate (6-50) Abnormal Negative /[HPF] [place] Comment on above: . Bilirubin Urine Negative Negative mg/dL [place] Comment on above: . Color (U) YELLOW Lt. Yellow NA [place] Comment on above: . Glucose, Ur Normal Normal (<70) mg/dL [place] Comment on above: . Interpretation and review of laboratory results Abnormal [place] Ketones Ql (U) Negative Negative mg/dL [place] Comment on above: . LEUKOCYTES, UA Negative Negative Zainab/uL [place] Comment on above: . Nitrite, Urine Negative Negative NA [place] Comment on above: . Occult Blood,Urine Negative Negative mg/dL [place] Comment on above: . pH (U) 6.5 [pH] [place] Comment on above: . Protein (U) [Mass/Vol] 10 mg/dL Abnormal Negative [place] Comment on above: . RBC (U) [#/Vol] Negative 0 - 2 /[HPF] [place] Comment on above: . Specific [place], Urine 1.024 [place] Comment on above: . Squam Epithel, UA 3-5 3 - 5 /[HPF] [place] Comment on above: . Urobilinogen, Urine Normal Normal ( 0-1) mg/dL [place] Comment on above: . WBC, UA 0-2 0 - 5 /[HPF] [place] Comment on above: . Test Performed by [facility], [address] [place] [address] [place], [place] CT Abdomen Pelvis Wo Contras ton 03-13-2020 Patient Name: RANI BANKS ---CT--- Exam Date/Time 03/13/2020 13:17:[address] Abdomen/Pelvis (No PO, No IV) Ordering Physician DO HERMAN DAVID J Accession Number [id number] CPT4 Codes 97906 (CT Abdomen/Pelvis (No PO, No IV)) Reason For Exam LEFT flank pain, suspect kidney stone Report CT ABDOMEN AND PELVIS WITHOUT CONTRAST CLINICAL INDICATION: Left flank pain Serial axial CT images of the abdomen and pelvis were acquired without intravenous contrast. Oral contrast was not given for this study. COMPARISON: 07/13/2017 FINDINGS: There is no hydronephrosis, hydroureter, or perinephric stranding bilaterally. No renal or ureteral stones are identified. The urinary bladder appears grossly normal. The uterus does not appear enlarged. Partially calcified, low-density lesion within the left adrenal gland measuring nearly 2 cm in greatest diameter is similar in size to the study from 2017. The liver, gallbladder, spleen, pancreas, and right adrenal gland are grossly unremarkable in appearance on this noncontrast examination. No retroperitoneal or pelvic lymphadenopathy is seen. The abdominal aorta is normal in caliber. The large and small bowel is unremarkable in appearance, without evidence of thickening or dilatation. The appendix appears normal. No free fluid is seen within the abdomen or pelvis. There is no free air under the diaphragm. The visualized portion of the lung bases are clear. No lytic or blastic lesions are seen on the bone windows. IMPRESSION: No renal or ureteral stones are seen. No hydronephrosis, hydroureter, or perinephric stranding is seen bilaterally. No acute findings are seen on this examination to explain the patient's pain. Low-density lesion within the left adrenal gland likely represents an adenoma, similar in size to the study from 2017. Report Dictated on --- Final --- Dictating Physician: MD TRAVIS JONATHAN R Signed Date and Time: 03/13/2020 1:35 pm Signed by: MD TRAVIS JONATHAN R Transcribed Date and Time: 03/13/2020 1:36 [place], [place] Zay, Sum[facility] Incoming Radiology Results From [facility] - 03/13/2020 1:37 PM EDT Patient Name: RANI FORDE ---CT--- Exam Date/Time 03/13/2020 13:17:[address] Abdomen/Pelvis (No PO, No IV) Ordering Physician DO HERMAN DAVID J Accession Number [id number] CPT4 Codes 13383 (CT Abdomen/Pelvis (No PO, No IV)) Reason For Exam LEFT flank pain, suspect kidney stone Report CT ABDOMEN AND PELVIS WITHOUT CONTRAST CLINICAL INDICATION: Left flank pain Serial axial CT images of the abdomen and pelvis were acquired without intravenous contrast. Oral contrast was not given for this study. COMPARISON: 07/13/2017 FINDINGS: There is no hydronephrosis, hydroureter, or perinephric stranding bilaterally. No renal or ureteral stones are identified. The urinary bladder appears grossly normal. The uterus does not appear enlarged. Partially calcified, low-density lesion within the left adrenal gland measuring nearly 2 cm in greatest diameter is similar in size to the study from 2017. The liver, gallbladder, spleen, pancreas, and right adrenal gland are grossly unremarkable in appearance on this noncontrast examination. No retroperitoneal or pelvic lymphadenopathy is seen. The abdominal aorta is normal in caliber. The large and small bowel is unremarkable in appearance, without evidence of thickening or dilatation. The appendix appears normal. No free fluid is seen within the abdomen or pelvis. There is no free air under the diaphragm. The visualized portion of the lung bases are clear. No lytic or blastic lesions are seen on the bone windows. IMPRESSION: No renal or ureteral stones are seen. No hydronephrosis, hydroureter, or perinephric stranding is seen bilaterally. No acute findings are seen on this examination to explain the patient's pain. Low-density lesion within the left adrenal gland likely represents an adenoma, similar in size to the study from 2017. Report Dictated on --- Final --- Dictating Physician: MD TRAVIS JONATHAN R Signed Date and Time: 03/13/2020 1:35 pm Signed by: MD TRAVIS JONATHAN R Transcribed Date and Time: 03/13/2020 1:36 [place] Comprehensive Metabolic Pane chester 03-13-2020 Albumin [Mass/Vol] 3.7 g/dL 3.5 - 5 g/dL [place] ALP [Catalytic activity/Vol] 52 U/L 38 - 126 U/L [place] ALT [Catalytic activity/Vol] 21 U/L 0 - 34 U/L [place] Comment on above: The ALT test is perf ormed by an updated assay method. Please note that the reference intervals have been changed and are now sex specific. Anion gap [Moles/Vol] 4 mmol/L [place], [place] AST [Catalytic activity/Vol] 29 U/L 15 - 46 U/L [place] Bilirubin Ql (U) 0.2 mg/dL 0.2 - 1.3 mg/dL [place] Calcium [Mass/Vol] 8.7 mg/dL 8.4 - 10. 4 mg/dL [place] Chloride [Moles/Vol] 104 mmol/L 98 - 10 7 mmol/L [place] CO2 [Moles/Vol] 29 mmol/L 22 - 30 mmol/L [place] Creatinine [Mass/Vol] 0.71 mg/dL 0.52 - 1.25 mg/dL [place] EGFR IF NonAfrican Taiwanese >90.0 >60 mL/min [place] Comment on above: KDIGO guidelines pro vide the following GFR categories: Stage GFR(ml/min/1.73 m2) Terms G1 >=90 Normal or high G2 60-89 Mildly decreased* G3a 45-59 Mildly to moderately decreased G3b 30-44 Moderately to severely decreased G4 15-29 Severely decreased G5 <15 Kidney failure *Relative to young adult level. In the absence of evidence of kidney damage, neither GFR category G1 nor G2 fulfill the criteria for CKD. The CKD-EPI equation is validated in individuals 18 years of age and older. Currently the best equation for estimating glomerular filtration rate (GFR) from serum creatinine in children is the Bedside Casillas equation. It is less accurate in patients with extremes of muscle mass, restriction of dietary protein, ingestion of creatine, extra-renal metabolism of creatinine, or treatment with medications that affect renal tubular creatinine secretion. GFR/1.73 sq M predicted among blacks MDRD (S/P/Bld) [Vol rate/Area] mL/min/{1.73_m2} >60 mL/min [place] Glucose [Mass/Vol] 85 mg/dL 70 - 100 mg/dL [place] Potassium [Moles/Vol] 4.2 mmol/L 3.5 - 5.1 mmol/L [place] Protein [Mass/Vol] 6.8 g/dL 6.3 - 8.2 g/dL [place], [place] Sodium [Moles/Vol] 138 mmol/L 135 - 145 mmol/L [place] Urea nitrogen [Mass/Vol] 13 mg/dL 7 - 20 mg/dL [place] Test Performed by [facility], [address], [place], [place] [address] [place] HCG Qualitative, Serumon hCG Qual Negative m[IU]/mL [place], [place] Comment on above: Reference Range: NEG ATIVE Effective 11/01/2019, the reference interval for the qualitative test has been updated. This test detects hCG at concentrations of 10 mIU/L or greater in serum. Test Performed by [facility] [employer] [facility], [address] [place], [place], [place] [address] [place] Hemogram (CBC) w/Auto Diffon 03-13-2020 Absolute Baso # 0.0 10*3/uL 0 - 0.2 10*3/uL [place] Absolute Neut # 2.5 10*3/uL 1.8 - 7 10*3/uL [place] Basophils/100 WBC (Bld) 0.9 % 0 - 2 % [place] Eosinophils (Bld) [#/Vol] 0.2 10*3/uL 0 - 0.5 10*3/uL [place] Eosinophils/100 WBC (Bld) 3.8 % 1 - 6 % [place] Erythrocyte distribution width (RBC) [Ratio] 13.4 % 11.5 - 14.5 % [place] Granulocytes/100 WBC (Bld) 45.9 % 40 - 80 % [place] Hematocrit (Bld) [Volume fraction] 39.1 % 35 - 47 % [place] Hemoglobin (Bld) [Mass/Vol] 12.9 g/dL 11.7 - 16 g/dL [place] Interpretation and review of laboratory results Abnormal [place] Lymphocytes (Bld) [#/Vol] 2.2 10*3/uL 1 - 4.3 10*3/uL [place] Lymphocytes/100 WBC (Bld) 41.5 % High 20 - 40 % [place] MCH (RBC) [Entitic mass] 29.8 pg 26 - 34 pg [place] MCHC (RBC) [Mass/Vol] 33.0 % 32 - 36 % [place] MCV (RBC) [Entitic vol] 90.5 fL 79 - 98 fL [place] Monocytes (Bld) [#/Vol] 0.4 10*3/uL 0 - 0.8 10*3/uL [place] Monocytes/100 WBC (Bld) 7.9 % 2 - 10 % [place] Platelet mean volume (Bld) [Entitic vol] 8.7 fL 7.4 - 10.4 fL [place] Platelets (Bld) [#/Vol] 208 10*3/uL 140 - 440 10*3/uL [place] RBC (Bld) [#/Vol] 4.32 10*6/uL 3.8 - 5.2 10*6/uL [place] WBC (Bld) [#/Vol] 5.4 10*3/uL 3.6 - 10.7 10*3/uL [place] Test Performed by [facility], [address] [place], [place], [place] [id number] [place] [address] Urinalysison 03-13-2020 Appearance (U) Clear Clear NA [place] Comment on above: . Bilirubin Urine Negative Negative mg/dL [place] Comment on above: . Color (U) Light-Yellow Lt. Yellow [place] Comment on above: . Glucose, Ur Normal Normal (<70) mg/dL [place] Comment on above: . Ketones Ql (U) Negative Negative mg/dL [place] Comment on above: . LEUKOCYTES, UA Negative Negative Zainab/uL [place] Comment on above: . Nitrite, Urine Negative Negative [place] Comment on above: . Occult Blood,Urine Negative Negative mg/dL [place] Comment on above: . pH (U) 7.0 [pH] [place] Comment on above: . Protein (U) [Mass/Vol] Negative Negative mg/d L [place] Comment on above: . Specific [place], Urine 1.021 [place] Comment on above: . Urobilinogen, Urine Normal Normal ( 0-1) mg/dL [place] Comment on above: . Test Performed by [facility], [address] [place], [place], [place] [address] [place] Comprehensive Metabolic Pane chester 06-29-2019 Albumin [Mass/Vol] 4.2 g/dL 3.5 - 5 g/dL [place] ALP [Catalytic activity/Vol] 72 U/L 38 - 126 U/L [place] ALT [Catalytic activity/Vol] 37 U/L 13 - 69 U/L [place] Anion gap [Moles/Vol] 12 mmol/L [place] AST [Catalytic activity/Vol] 30 U/L 15 - 46 U/L [place] Bilirubin Ql (U) 0.4 mg/dL 0.2 - 1.3 mg/dL [place] Calcium [Mass/Vol] 9.2 mg/dL 8.4 - 10. 4 mg/dL [place] Chloride [Moles/Vol] 103 mmol/L 98 - 10 7 mmol/L [place] CO2 [Moles/Vol] 22 mmol/L 22 - 30 mmol/L [place] Creatinine [Mass/Vol] 0.76 mg/dL 0.52 - 1.25 mg/dL [place] EGFR IF NonAfrican Taiwanese >60.0 >60 mL/min [place] Comment on above: Source- MDRD equatio n with creatinine calibration to IDMS(NKDEP) eGFR not recommended for drug dose adjustment GFR/1.73 sq M predicted among blacks MDRD (S/P/Bld) [Vol rate/Area] mL/min/{1.73_m2} >60 mL/min [place] Glucose [Mass/Vol] 98 mg/dL 70 - 100 mg/dL [place] Potassium [Moles/Vol] 3.7 mmol/L 3.5 - 5.1 mmol/L [place] Protein [Mass/Vol] 7.9 g/dL 6.3 - 8.2 g/dL [place] Sodium [Moles/Vol] 137 mmol/L 135 - 145 mmol/L [place] Urea nitrogen [Mass/Vol] 9 mg/dL 7 - 20 mg/dL [place] Test Performed by [facility], [facility] [place], [place] [id number] [place] [address] Hemogram (CBC) w/Auto Diffon 06-29-2019 Absolute Baso # 0.0 10*3/uL 0 - 0.2 10*3/uL [place] Absolute Neut # 6.0 10*3/uL 1.8 - 7 10*3/uL [place] Basophils/100 WBC (Bld) 0.6 % 0 - 2 % [place] Eosinophils (Bld) [#/Vol] 0.0 10*3/uL 0 - 0.5 10*3/uL [place] Eosinophils/100 WBC (Bld) 0.1 % Low 1 - 6 % [place] Erythrocyte distribution width (RBC) [Ratio] 13.3 % 11.5 - 14.5 % [place] Granulocytes/100 WBC (Bld) 85.4 % High 40 - 80 % [place] Hematocrit (Bld) [Volume fraction] 40.7 % 35 - 47 % [place] Hemoglobin (Bld) [Mass/Vol] 13.9 g/dL 11.7 - 16 g/dL [place] Interpretation and review of laboratory results Abnormal [place] Lymphocytes (Bld) [#/Vol] 0.4 10*3/uL Low 1 - 4.3 10*3/uL [place] Lymphocytes/100 WBC (Bld) 5.5 % Low 20 - 40 % [place] MCH (RBC) [Entitic mass] 29.7 pg 26 - 34 pg [place] MCHC (RBC) [Mass/Vol] 34.2 % 32 - 36 % [place] MCV (RBC) [Entitic vol] 87.0 fL 79 - 98 fL [place] Monocytes (Bld) [#/Vol] 0.6 10*3/uL 0 - 0.8 10*3/uL [place] Monocytes/100 WBC (Bld) 8.4 % 2 - 10 % [place] Platelet mean volume (Bld) [Entitic vol] 8.3 fL 7.4 - 10.4 fL [place] Platelets (Bld) [#/Vol] 189 10*3/uL 140 - 440 10*3/uL [place] RBC (Bld) [#/Vol] 4.67 10*6/uL 3.8 - 5.2 10*6/uL [place] WBC (Bld) [#/Vol] 7.1 10*3/uL 3.6 - 10.7 10*3/uL [place] Test Performed by [facility] [employer] Formerly [facility], [address] , [address] Rapid Strep Screenon 019 S. pyogenes Ag Ql (Throat) see below Negative [place] Comment on above: NEGATIVE (presumptiv e) for Group A Streptococcus antigen. Method: Immunochromatographic assay. Confirmatory testing to follow. Confirmatory testing performed at an additional cost. Test Performed by [facility] [employer] [facility]ly [facility], [address] , [address] Rapid influenza A/B antigens on 06-29-2019 INFLUENZA A Not Detected Not Detected [place] INFLUENZA B Not Detected Not Detected [place] Comment on above: Method: Isothermal n ucleic acid amplification technology. Test Performed by [facility] [employer] Formerly [facility], [address] , [address] HCG, Quantitative, on 03-10-2019 hCG Quant <2 <3 m[IU]/mL [place] Test Performed by [facility] [employer] [facility]ly [facility], [address] , [address] HIV Screenon 03-10-2019 HIV 1+2 [id number] AG, EIA NONREACTIVE Nonreactive NA [place] Comment on above: Results obtained usi katy the FDA cleared 4th generation HIV test. This test detects antibodies to HIV1, HIV2, HIV Group O, and the presence of the HIV-1 p24 antigen. A Non-Reactive re- sult indicates the patient is negative for both HIV antibody and HIV p24 antigen. All reactive results will undergo reflex confirmation testing at an additional charge. Hepatitis B Surface Antigeno n 03-10-2019 Hepatitis B Surface Ag NOT DETECTED Not-D etected [place] Hepatitis C Antibodyon 03-10 Hepatitis C Ab NOT DETECTED Not-Detected NA [place] Comment on above: Patients with DETECT ED Hepatitis C Ab results should have a new specimen submitted for supplemental testing with a Hepatitis C Quantitative RNA assay (viral load), if clinically indicated. Otheron 03-10-2019 Test Performed by [facility] [employer] [address] [address] [place] Vital Signs Date Time Vital Sign Value Performing Clinician Facility 09-28-2024 11:18-0500 Body height 154.9 cm Chloe Carvalho MD Work Phone: [facility] 09-28-2024 11:18-0500 Body mass index (BMI) [Ratio] 41.57 kg/m2 Chloe Carvalho MD Work Phone: [facility] 09-28-2024 11:18-0500 Body weight 99.79 kg Chloe Carvalho MD Work Phone: [facility] 09-28-2024 11:18-0500 Diastolic blood pressure 77 mm[Hg] Chloe Carvalho MD Work Phone: [facility] 09-28-2024 11:18-0500 Heart rate 88 /min Chloe Carvalho MD Work Phone: [facility] 09-28-2024 11:18-0500 Systolic blood pressure 109 mm[Hg] Chloe Carvalho MD Work Phone: [facility] [employer] 08-12-2024 09:50-0500 Body height 152.4 cm [facility] [employer] 08-12-2024 09:50-0500 Body mass index (BMI) [Ratio] 41.79 kg/m2 [facility] [employer] 08-12-2024 09:50-0500 Body weight 97.07 kg [facility] [employer] 01-25-2024 14:38-0400 Body height 157.5 cm Chloe Carvalho MD Work Phone: [facility] [employer] 01-25-2024 14:38-0400 Body mass index (BMI) [Ratio] 35.3 kg/m2 Chloe Carvalho MD Work Phone: [facility] [employer] 01-25-2024 14:38-0400 Body weight 87.54 kg Chloe Carvalho MD Work Phone: [facility] [employer] 01-25-2024 14:38-0400 Diastolic blood pressure 78 mm[Hg] Chloe Carvalho MD Work Phone: [facility] [employer] 01-25-2024 14:38-0400 Heart rate 100 /min Chloe Carvalho MD Work Phone: [facility] 01-25-2024 14:38-0400 Systolic blood pressure 116 mm[Hg] Chloe Carvalho MD Work Phone: [facility] 08-06-2023 09:21-0500 Body height 157.5 cm Lorena Hydaburg PA Work Phone: [facility] 08-06-2023 09:21-0500 Body mass index (BMI) [Ratio] 31.9 kg/m2 Lorena Hydaburg PA Work Phone: [facility] 08-06-2023 09:21-0500 Body weight 79.11 kg Lorena Hydaburg PA Work Phone: [facility] 08-06-2023 09:21-0500 Diastolic blood pressure 73 mm[Hg] Lorena Hydaburg PA Work Phone: [facility] 08-06-2023 09:21-0500 Heart rate 55 /min Lorena Hydaburg PA Work Phone: [facility] 08-06-2023 09:21-0500 Systolic blood pressure 112 mm[Hg] Lorena Hydaburg PA Work Phone: [facility] [employer] 05-28-2023 11:10-0400 Body mass index (BMI) [Ratio] 30.18 kg/m2 Clif Whiteside DO Work Phone: [facility] 05-28-2023 11:10-0400 Body temperature 99.61 [degF] Clif Whiteside DO Work Phone: [facility] 05-28-2023 11:10-0400 Body weight 74.84 kg Clif Whiteside DO Work Phone: [facility] 05-28-2023 11:10-0400 Diastolic blood pressure 87 mm[Hg] Clif Whiteside DO Work Phone: [facility] 05-28-2023 11:10-0400 Heart rate 114 /min Clif Whiteside DO Work Phone: [facility] 05-28-2023 11:10-0400 Respiratory rate 18 /min Clif Whiteside DO Work Phone: [facility] [employer] 05-28-2023 11:10-0400 SaO2% (BldA) [Mass fraction] 100 % Clif Whietside DO Work Phone: [facility] [employer] 05-28-2023 11:10-0400 Systolic blood pressure 134 mm[Hg] Clif Whiteside DO Work Phone: [facility] [employer] 05-07-2023 13:04-0400 Body height 157.5 cm Chloe Carvalho MD Work Phone: [facility] [employer] 05-07-2023 13:04-0400 Body mass index (BMI) [Ratio] 31.04 kg/m2 Chloe Carvalho MD Work Phone: [facility] [employer] 05-07-2023 13:04-0400 Body weight 76.97 kg Chloe Carvalho MD Work Phone: [facility] [employer] 05-07-2023 13:04-0400 Diastolic blood pressure 79 mm[Hg] Chloe Carvalho MD Work Phone: [facility] 05-07-2023 13:04-0400 Heart rate 66 /min Chloe Carvalho MD Work Phone: [facility] [employer] 05-07-2023 13:04-0400 Systolic blood pressure 108 mm[Hg] Chloe Carvalho MD Work Phone: [facility] [employer] 02-05-2023 11:40-0400 Diastolic Blood Pressure Non-Invasive [address] SANJANA BORJA MD [facility] 02-05-2023 11:40-0400 Heart rate 66 /min DR SANJANA BORJA MD [facility] 02-05-2023 11:40-0400 Reason For Taking VItal Signs DR SANJANA BORJA MD [facility] 02-05-2023 11:40-0400 Respiratory rate 16 /min DR SANJANA BORJA MD [facility] 02-05-2023 11:40-0400 Systolic Blood Pressure Non-Invasive [address] SANJANA BORJA MD [facility] 02-05-2023 10:44-0400 Body height 157.[address] SANJANA BORJA MD [facility] 02-05-2023 10:44-0400 Body temperature 98.06 [degF] DR SANJANA BORJA MD [facility] 02-05-2023 10:44-0400 Body weight 75.[address] SANJANA BORJA MD [facility] 02-05-2023 10:44-0400 Diastolic Blood Pressure Non-Invasive [address] SANJANA BORJA MD [facility] 02-05-2023 10:44-0400 Heart rate 83 /min DR SANJANA BORJA MD [facility] 02-05-2023 10:44-0400 Respiratory rate 18 /min DR SANJANA BORJA MD [facility] 02-05-2023 10:44-0400 Systolic Blood Pressure Non-Invasive [address] SANJANA BORJA MD [facility] 02-03-2023 15:22-0400 Diastolic blood pressure 83 mm[Hg] [facility] 02-03-2023 15:22-0400 Respiratory rate 17 /min [facility] 02-03-2023 15:22-0400 Systolic blood pressure 126 mm[Hg] [facility] 02-03-2023 14:32-0400 Heart rate 64 /min [facility] 02-03-2023 14:32-0400 SaO2% (BldA) [Mass fraction] 100 % [facility] 02-03-2023 12:30-0400 Body height 157.48 cm [facility] 02-03-2023 12:30-0400 Body mass index (BMI) [Ratio] 30.2 kg/m2 [facility] 02-03-2023 12:30-0400 Body temperature 97 [degF] [facility] 02-03-2023 12:30-0400 Body weight 74.84 kg [facility] 01-19-2023 22:20-0400 Diastolic blood pressure 84 mm[Hg] Zena Hi MD Work Phone: [facility] 01-19-2023 22:20-0400 Heart rate 85 /min Zena Hi MD Work Phone: [facility] 01-19-2023 22:20-0400 SaO2% (BldA) [Mass fraction] 99 % Zena Hi MD Work Phone: [facility] 01-19-2023 22:20-0400 Systolic blood pressure 114 mm[Hg] Zena Hi MD Work Phone: [facility] 01-19-2023 19:48-0400 Body temperature 97.81 [degF] Zena Hi MD Work Phone: [facility] 01-19-2023 19:48-0400 Respiratory rate 18 /min Zena Hi MD Work Phone: [facility] 11-13-2022 14:48-0400 Heart rate 64 /min Patricia Roldan TUBE LASER OPERATOR.APPARATUS CLEANER Work Phone: [facility] 11-13-2022 14:48-0400 Respiratory rate 12 /min Patricia Roldan TUBE LASER OPERATOR.APPARATUS CLEANER Work Phone: [facility] 11-13-2022 14:48-0400 SaO2% (BldA) [Mass fraction] 98 % Patricia Roldan TUBE LASER OPERATOR.APPARATUS CLEANER Work Phone: [facility] 10-20-2022 13:13-0400 Body height 157.5 cm Papa Teran MD Work Phone: [facility] 10-20-2022 13:13-0400 Body weight 63.5 kg Papa Teran MD Work Phone: [facility] 10-20-2022 13:13-0400 Respiratory rate 16 /min Papa Teran MD Work Phone: [facility] 10-17-2022 11:37-0400 Body weight 63.5 kg Frances LOZOYAC Work Phone: [facility] 10-17-2022 11:37-0400 Diastolic blood pressure 68 mm[Hg] [place] KEARNS-C Work Phone: [facility] 10-17-2022 11:37-0400 Systolic blood pressure 114 mm[Hg] [place] LOZOYAC Work Phone: [facility] 10-03-2022 09:03-0500 Body height 157.5 cm Papa Teran MD Work Phone: [facility] 10-03-2022 09:03-0500 Body weight 61.69 kg Papa Teran MD Work Phone: [facility] 10-03-2022 09:03-0500 Respiratory rate 18 /min Papa Teran MD Work Phone: [facility] 09-30-2022 11:09-0500 Body height 157.5 cm Yara Herring MD Work Phone: [facility] 09-30-2022 11:09-0500 Body weight 61.69 kg Yara Herring MD Work Phone: [facility] 09-30-2022 11:09-0500 Respiratory rate 18 /min Yara Herring MD Work Phone: [facility] 09-19-2022 10:01-0500 Body height 157.5 cm Lyubov Rodríguez TUBE LASER OPERATOR.APPARATUS CLEANER Work Phone: [facility] 09-19-2022 10:01-0500 Body weight 61.69 kg Lyubov Rodríguez TUBE LASER OPERATOR.APPARATUS CLEANER Work Phone: [facility] 09-19-2022 10:01-0500 Respiratory rate 16 /min Lyubov Rodríguez TUBE LASER OPERATOR.APPARATUS CLEANER Work Phone: [facility] 09-16-2022 10:06-0500 Body height 157.5 cm Lizeth Medina TUBE LASER OPERATOR.APPARATUS CLEANER Work Phone: [facility] 09-16-2022 10:06-0500 Body weight 61.69 kg Liezth Medina TUBE LASER OPERATOR.APPARATUS CLEANER Work Phone: [facility] 09-16-2022 10:06-0500 Respiratory rate 18 /min Lizeth Medina TUBE LASER OPERATOR.APPARATUS CLEANER Work Phone: [facility] 09-11-2022 13:37-0500 Body height 157.5 cm Papa Teran MD Work Phone: [facility] 09-11-2022 13:37-0500 Body weight 61.69 kg Papa Teran MD Work Phone: [facility] 09-11-2022 13:37-0500 Respiratory rate 18 /min Papa eTran MD Work Phone: [facility] 09-10-2022 09:37-0500 Body height 157.5 cm Vishnu Guerrero MD Work Phone: [facility] 09-10-2022 09:37-0500 Body mass index (BMI) [Ratio] 24.87 kg/m2 Vishnu Guerrero MD Work Phone: [facility] 09-10-2022 09:37-0500 Body weight 61.69 kg Vishnu Guerrero MD Work Phone: [facility] 08-22-2022 10:03-0500 Body height 157.5 cm Yara Herring MD Work Phone: [facility] 08-22-2022 10:03-0500 Body weight 58.97 kg Yara Herring MD Work Phone: [facility] 08-22-2022 10:03-0500 Respiratory rate 18 /min Yara Herring MD Work Phone: [facility] 08-01-2022 11:10-0500 Body height 157.5 cm Chandan Boss DO Work Phone: [facility] 08-01-2022 11:10-0500 Body mass index (BMI) [Ratio] 24.51 kg/m2 Chandan Boss DO Work Phone: [facility] 08-01-2022 11:10-0500 Body weight 60.78 kg Chandan Boss DO Work Phone: [facility] 08-01-2022 11:10-0500 Diastolic blood pressure 70 mm[Hg] Chandan Boss DO Work Phone: [facility] 08-01-2022 11:10-0500 Heart rate 86 /min Chandan Boss DO Work Phone: [facility] 08-01-2022 11:10-0500 Systolic blood pressure 110 mm[Hg] Chandan Boss DO Work Phone: [facility] 07-08-2022 00:23-0500 Respiratory rate 13 /min Luz Sachon DO Work Phone: [facility] 07-08-2022 00:00-0500 Body temperature 98.2 [degF] Luz Sachon DO Work Phone: [facility] 07-08-2022 00:00-0500 Diastolic blood pressure 59 mm[Hg] Luz Sachon DO Work Phone: [facility] 07-08-2022 00:00-0500 Systolic blood pressure 111 mm[Hg] Luz Sachon DO Work Phone: [facility] 07-07-2022 21:01-0500 Heart rate 101 /min Luz Sachon DO Work Phone: [facility] 07-07-2022 21:01-0500 SaO2% (BldA) [Mass fraction] 97 % Luz Sachon DO Work Phone: [facility] 06-30-2022 13:29-0500 Body height 160 cm Luz Sachon DO Work Phone: [facility] 06-30-2022 13:29-0500 Body mass index (BMI) [Ratio] 21.52 kg/m2 Luz Sachon DO Work Phone: [facility] 06-30-2022 13:29-0500 Body weight 55.1 kg Luz Stephanyhon DO Work Phone: [facility] 04-16-2022 13:16-0400 Body mass index (BMI) [Ratio] 23.78 kg/m2 Vishnu Guerrero MD Work Phone: [facility] 04-16-2022 13:16-0400 Body temperature 96.1 [degF] Vishnu Guerrero MD Work Phone: [facility] 04-16-2022 13:16-0400 Body weight 58.97 kg Vishnu Guerrero MD Work Phone: [facility] 04-16-2022 13:16-0400 Diastolic blood pressure 93 mm[Hg] Vishnu Guerrero MD Work Phone: [facility] 04-16-2022 13:16-0400 Heart rate 95 /min Vishnu Guerrero MD Work Phone: [facility] 04-16-2022 13:16-0400 Respiratory rate 16 /min Vishnu Guerrero MD Work Phone: [facility] 04-16-2022 13:16-0400 SaO2% (BldA) [Mass fraction] 100 % Vishnu Guerrero MD Work Phone: [facility] 04-16-2022 13:16-0400 Systolic blood pressure 132 mm[Hg] Vishnu Guerrero MD Work Phone: [facility] 03-13-2022 10:08-0400 Heart rate 95 /min Cuco Sheikh MD Work Phone: [facility] 03-13-2022 10:08-0400 Respiratory rate 22 /min Cuco Sheikh MD Work Phone: [facility] 03-13-2022 10:08-0400 SaO2% (BldA) [Mass fraction] 100 % Cuco Sheikh MD Work Phone: [facility] 03-13-2022 08:39-0400 Body mass index (BMI) [Ratio] 26.7 kg/m2 Cuco Sheikh MD Work Phone: [facility] 03-13-2022 08:39-0400 Body temperature 97.9 [degF] Cuco Sheikh MD Work Phone: [facility] 03-13-2022 08:39-0400 Body weight 66.22 kg Cuco Sheikh MD Work Phone: [facility] 01-23-2022 15:10-0400 Body temperature 98.49 [degF] Maegan Eldridge MD Work Phone: [facility] 01-23-2022 15:10-0400 Diastolic blood pressure 68 mm[Hg] Maegan [place] MD [facility] Phone: [facility] 01-23-2022 15:10-0400 Heart rate 69 /min Maegan Eldridge MD Work Phone: [facility] 01-23-2022 15:10-0400 Respiratory rate 16 /min Maegan Eldridge MD Work Phone: [facility] 01-23-2022 15:10-0400 SaO2% (BldA) [Mass fraction] 96 % Maegan [place] MD Work Phone: [facility] 01-23-2022 15:10-0400 Systolic blood pressure 114 mm[Hg] Maegan Eldridge MD Work Phone: [facility] 09-30-2021 09:57-0500 Diastolic blood pressure 78 mm[Hg] TACOS MANCIA [employer] [facility] 09-30-2021 09:57-0500 Heart rate 61 /min TACOS MANCIA [employer] [facility] 09-30-2021 09:57-0500 Respiratory rate 16 /min TACOS [employer] [facility] 09-30-2021 09:57-0500 Systolic blood pressure 115 mm[Hg] TACOS [employer] [facility] 09-30-2021 08:33-0500 Diastolic blood pressure 84 mm[Hg] TACOS [employer] [facility] 09-30-2021 08:33-0500 Heart rate 60 /min [facility]OS [facility] 09-30-2021 08:33-0500 Respiratory rate 14 /min [facility] 09-30-2021 08:33-0500 Systolic blood pressure 137 mm[Hg] TACOS [facility] 09-30-2021 06:53-0500 Body temperature 98.06 [degF] [facility]OS [facility] 09-30-2021 06:53-0500 Body weight 65.9 kg TACOS TOBIAST [employer] [facility] 09-30-2021 06:53-0500 Diastolic blood pressure 86 mm[Hg] [facility] 09-30-2021 06:53-0500 Heart rate 87 /min [facility] 09-30-2021 06:53-0500 Respiratory rate 18 /min [facility] 09-30-2021 06:53-0500 Systolic blood pressure 127 mm[Hg] [facility] 08-03-2021 21:22-0500 Body temperature 100.71 [degF] Margarita Patten MD Work Phone: [facility] 08-03-2021 21:22-0500 Diastolic blood pressure 83 mm[Hg] Margarita Patten MD Work Phone: [facility] 08-03-2021 21:22-0500 Heart rate 117 /min Margarita Patten MD Work Phone: [facility] 08-03-2021 21:22-0500 Respiratory rate 18 /min Margarita Patten MD Work Phone: [facility] 08-03-2021 21:22-0500 SaO2% (BldA) [Mass fraction] 98 % Margarita Patten MD Work Phone: [facility] 08-03-2021 21:22-0500 Systolic blood pressure 121 mm[Hg] Margarita Patten MD Work Phone: [facility] 03-14-2020 13:37-0400 BMI (Body Mass Index) 31.89 kg/m2 [place] 03-14-2020 13:37-0400 Body Temperature 98.2 [degF] Vijay Snider [place] 03-14-2020 13:37-0400 Body weight 81.65 kg Vijay Snider [facility] , [place] 03-14-2020 13:37-0400 BP Diastolic 83 mm[Hg] Vijay Rhoadesrus [facility] , [place] 03-14-2020 13:37-0400 BP Systolic 127 mm[Hg] [facility] [place] 03-14-2020 13:37-0400 Height 160 [facility] [place] 03-14-2020 13:37-0400 Pulse (Heart Rate) 90 /min [facility] [place] 03-14-2020 13:37-0400 Pulse Oximetry 98 % [facility] [place] 03-14-2020 13:37-0400 Respiratory Rate 20 /min [facility] [place] 03-13-2020 14:53-0400 BP Diastolic 77 mm[Hg] [facility] , [place] 03-13-2020 14:53-0400 BP Systolic 100 mm[Hg] Aidan [facility] , [place] 03-13-2020 14:53-0400 Pulse (Heart Rate) 71 /min Aidan [facility] 03-13-2020 14:53-0400 Respiratory Rate 18 /min Aidan [facility] 03-13-2020 13:01-0400 Pulse Oximetry 99 % Aidan [facility] [place] 03-13-2020 10:40-0400 BMI (Body Mass Index) 31.53 kg/m2 Aidan [facility] 03-13-2020 10:40-0400 Body Temperature 98.01 [degF] Aidan [facility] 03-13-2020 10:40-0400 Body weight 80.74 kg Aidan [facility] [facility] , [place] 03-13-2020 10:38-0400 Height 160 cm Aidan [facility] , [place] 06-29-2019 18:07-0500 BP Diastolic 72 mm[Hg] Jose Daniel Beckwith [facility], [place] 06-29-2019 18:07-0500 BP Systolic 109 mm[Hg] Jose Daniel Alvarez [facility], [place] 06-29-2019 18:07-0500 Pulse (Heart Rate) 110 /min Jose Daniel Alvarez [facility], [place] 06-29-2019 18:07-0500 Pulse Oximetry 98 % Jose Daniel Alvarez [facility], [place] 06-29-2019 18:07-0500 Respiratory Rate 16 /min Jose Daniel Alvarez [facility], [place] 06-29-2019 17:16-0500 BMI (Body Mass Index) 31.89 kg/m2 Jose Daniel Alvarez [facility], [place] 06-29-2019 17:16-0500 Body Temperature 98.8 [degF] Jose Daniel Alvarez [facility], [place] 06-29-2019 17:16-0500 Body weight 81.65 kg Jose Daniel Alvarez [facility] 06-29-2019 17:16-0500 Height 160 cm Jose Daniel Alvarez [facility] Encounters Encounter Date Encounter Type Care Provider Facility Start: 02-10-2025 End: 02-10-2025 ambulatory [facility] Facility:[facility] Start: 12-30-2024 End: 12-30-2024 ambulatory [facility] Facility:[facility] Start: 12-27-2024 End: 12-27-2024 Office outpatient visit 25 minutes Chandan Boss DO Work Phone: [facility] Primary Care [facility] Comment on above: Moderate episode of recurrent major depressive disorder (HCC) (Primary Dx); Chronic bilateral low back pain without sciatica Start: 12-27-2024 End: 12-27-2024 ambulatory CHANDAN BOSS [facility] Start: 09-28-2024 End: 09-28-2024 Office outpatient visit 25 minutes Chloe Carvalho MD Work Phone: [facility] Endocrinology [facility] Comment on above: Postsurgical hypothy roidism (Primary Dx); Thyroid cancer (HCC); Postsurgical hypoparathyroidism (HCC); Hypocalcemia; Encounter for follow-up surveillance of thyroid cancer Start: 09-28-2024 End: 09-28-2024 ambulatory CHLOE CARVALHO [facility] Start: 08-25-2024 End: 11-24-2024 Transcribe Orders Chloe Carvalho MD Work Phone: [facility] Comment on above: Encounter for follow -up examination after completed treatment for malignant neoplasm (Primary Dx); Personal history of malignant neoplasm of thyroid Start: 08-24-2024 End: 08-24-2024 ambulatory MARIO RANGEL Facility:[facility] Start: 08-19-2024 End: 08-19-2024 ambulatory MECHELLE GARRIDO Facility:[facility] Start: 08-12-2024 End: 08-12-2024 Clinical Support Fibroscan Schedule [facility] Infectious Disease - [place] Comment on above: Obesity, Class III, BMI 40-49.9 (morbid obesity) (HCC) (Primary Dx); Steatosis of liver Start: 08-04-2024 End: 08-04-2024 ambulatory MEGHAN TAYLOR Facility:[facility] Start: 07-28-2024 End: 07-28-2024 ambulatory LUCILLE VALE Facility:[facility] Start: 07-18-2024 End: 07-18-2024 ambulatory MECHELLE GARRIDO Facility:[facility] Start: 07-12-2024 End: 07-12-2024 ambulatory LUCILLE VALE Facility:[facility] Start: 07-07-2024 End: 07-07-2024 ambulatory MARIO RANGEL Facility:[facility] Start: 06-28-2024 End: 06-28-2024 ambulatory MARIO RANGEL Facility:[facility] Start: 06-27-2024 End: 06-27-2024 ambulatory CHANDAN BOSS Facility:[facility] Start: 06-03-2024 End: 06-03-2024 ambulatory ДМИТРИЙ BRITO Facility:[facility] Start: 06-03-2024 End: 06-03-2024 ambulatory CHANDAN BOSS Facility:[facility] Start: 05-30-2024 End: 05-30-2024 ambulatory MARIO RANGEL Facility:[facility] Start: 05-18-2024 End: 05-18-2024 ambulatory CHANDAN BOSS Facility:[facility] Start: 05-17-2024 End: 05-17-2024 Telephone encounter Tricia Granados RD Work Phone: [facility] Comment on above: Appointment Start: 05-13-2024 End: 05-13-2024 Subsequent hospital visit by physician Chandan Boss DO Work Phone: [facility] Comment on above: Abnormal LFTs Start: 05-13-2024 End: 05-13-2024 ambulatory [facility] Start: 05-11-2024 End: 05-11-2024 ambulatory CHANDAN [facility] Start: 05-05-2024 End: 05-05-2024 Office outpatient visit 15 minutes Chandan Boss DO Work Phone: [facility] Comment on above: Elevated LFTs (Prima ry Dx) Start: 05-05-2024 End: 05-05-2024 ambulatory [facility] Start: 05-05-2024 End: 05-05-2024 ambulatory CHANDAN BOSS Facility:[facility] Start: 04-28-2024 End: 04-28-2024 Telephone encounter Chandan Boss DO Work Phone: [facility] Comment on above: Lab Orders Start: 04-27-2024 End: 04-27-2024 Orders Only Chloe Carvalho MD Work Phone: [facility] Endocrinology [facility] Comment on above: Encounter for follow -up surveillance of thyroid cancer (Primary Dx); Postsurgical hypothyroidism; Postsurgical hypoparathyroidism (HCC) Start: 04-20-2024 End: 04-20-2024 ambulatory AIDAN SUGGS Facility:[facility] Start: 03-15-2024 End: 03-15-2024 ambulatory CHANDAN BOSS Facility:[facility] Start: 03-11-2024 End: 03-15-2024 Telephone encounter Chloe Carvalho MD Work Phone: [facility] Endocrinology Comment on above: Other (Blood Work) Start: 03-08-2024 End: 03-10-2024 Evaluation and management of inpatient CHANDAN BOSS Facility:[facility] Start: 03-03-2024 End: 03-03-2024 ambulatory CHANDAN BOSS Facility:[facility] Start: 03-01-2024 End: 03-01-2024 ambulatory SID HARRIS Facility:[facility] Start: 02-22-2024 End: 02-22-2024 ambulatory CHANDAN BOSS Facility:[facility] Start: 02-15-2024 End: 02-15-2024 ambulatory CHANDAN BOSS Facility:[facility] Start: 02-09-2024 End: 02-11-2024 Refill Chloe Carvalho MD Work Phone: [facility] Endocrinology Comment on above: Postsurgical hypothy roidism Medication Problem Start: 02-01-2024 End: 02-01-2024 ambulatory CHANDAN BOSS Facility:[facility] Start: 01-25-2024 End: 01-25-2024 Office outpatient visit 25 minutes Chloe Carvalho MD Work Phone: [facility] Endocrinology Comment on above: Thyroid cancer (HCC) (Primary Dx); Postsurgical hypothyroidism; Postsurgical hypoparathyroidism (HCC); 33 weeks gestation of Start: 01-25-2024 End: 01-25-2024 ambulatory HCANDAN BOSS [facility] Start: 01-22-2024 End: 01-22-2024 ambulatory CHLOE CARVALHO [facility] Start: 01-20-2024 End: 01-20-2024 ambulatory CHANDAN BOSS Facility:[facility] Start: 01-07-2024 End: 01-07-2024 ambulatory CHANDAN BOSS Facility:[facility] Start: 12-27-2023 End: 12-27-2023 ambulatory CHANDAN BOSS Facility:[facility] Start: 12-26-2023 Emergency department patient visit CHANDAN BOSS Facility:[facility] Start: 12-25-2023 End: 12-25-2023 ambulatory CHANDAN BOSS Facility:[facility] Start: 12-23-2023 End: 12-23-2023 ambulatory SOWMYA PORTILLO Facility:[facility] Start: 12-01-2023 End: 12-01-2023 ambulatory CHANDAN BOSS Facility:[facility] Start: 11-20-2023 End: 11-20-2023 ambulatory CHANDAN BOSS Facility:[facility] Start: 11-20-2023 End: 11-20-2023 ambulatory CHANDAN BOSS Facility:[facility] Start: 11-19-2023 End: 11-19-2023 Orders Only Chloe Carvalho MD Work Phone: [facility] Endocrinology Comment on above: Thyroid cancer (HCC) (Primary Dx); Postsurgical hypothyroidism; Postsurgical hypoparathyroidism (HCC) Start: 11-12-2023 Telephone encounter Chloe Mccall i, MD Work Phone: [facility] Endocrinology Comment on above: Discuss Labs Start: 11-10-2023 End: 02-09-2024 Subsequent hospital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 Microscopic observat ion [Identifier] in Cervix by Cyto stain Margarita Patten MD Work Phone: Cyst of ovary (disorder) JHOAN RLES FROMMELT DO History of decompres cosmo of median nerve S/P carpal tunnel release Yara Herring MD Work Phone: Plan of Treatment Date Care Activity Detail Author Start: 2067 RSV Immunization for Adults (1 - 1-dose 75+ series) RSV Immunization for Adults (1 - 1-dose 75+ series) [facility] Start: 2052 RSV Immunization aged 60 or older (1 - 1-dose 60+ series) RSV Immunization aged 60 or older (1 - 1-dose 60+ series) [facility] Start: 2042 Zoster Vaccines (1 of 2) Zoster Vaccines (1 of 2) [facility] Start: 01-31-2034 DTaP/Tdap/Td Vaccines (9 - Td or Tdap) DTaP/Tdap/Td Vaccines (9 - Td or Tdap) [facility] Start: 06-30-2032 DTaP/Tdap/Td Vaccines (8 - Td or Tdap) DTaP/Tdap/Td Vaccines (8 - Td or Tdap) [facility] Start: 06-30-2032 Urine microalbumin profile DTAP,TDAP,TD (8 - Td or Tdap) [facility] Start: 10-18-2027 HPV TEST[address] HPV TESTING [facility] Start: 10-18-2027 PAP TESTING PAP TESTING [facility] Start: 11-19-2026 Screening for malignant neoplasm of cervix [facility] Start: 10-17-2025 Screening for malignant neoplasm of cervix [facility] Start: 09-28-2025 End: 09-28-2025 25-hydroxyvitamin D3 [Mass/volume] in Serum or Plasma Vitamin D Deficiency Screening (Vit D 25) Lab Routine Hypocalcemia Expected: 09/28/2025, Expires: 09/28/2025 Check-Cap Comment on above: Expected: 09/28/2025, Expires: Start: 09-28-2025 End: 09-28-2025 Anti-thyroglobulin antibody Anti-thyroglobulin antibody Lab Routine Encounter for follow-up surveillance of thyroid cancer Expected: 09/28/2025, Expires: 09/28/2025 [employer] Comment on above: Expected: 09/28/2025, Expires: Start: 09-28-2025 End: 09-28-2025 Comprehensive metabolic 1998 panel - Serum or Plasma Comprehensive metabolic panel Lab Routine Hypocalcemia Expected: 09/28/2025, Expires: 09/28/2025 [employer] Comment on above: Expected: 09/28/2025, Expires: Start: 09-28-2025 End: 09-28-2025 Magnesium [Mass/volume] in Serum or Plasma Magnesium Lab Routine Hypocalcemia Expected: 09/28/2025, Expires: 09/28/2025 [employer] Comment on above: Expected: 09/28/2025, Expires: Start: 09-28-2025 End: 09-28-2025 Phosphate [Moles/volume] in Serum or Plasma Phosphorus Lab Routine Hypocalcemia Expected: 09/28/2025, Expires: 09/28/2025 Check-Cap Comment on above: Expected: 09/28/2025, Expires: Start: 09-28-2025 End: 09-28-2025 Thyroglobulin ([facility]) Thyroglobulin ([facility]) Lab Routine Encounter for follow-up surveillance of thyroid cancer Expected: 09/28/2025, Expires: 09/28/2025 [employer] Comment on above: Expected: 09/28/2025, Expires: Start: 09-28-2025 End: 09-28-2025 Thyrotropin [Units/volume] in Serum or Plasma TSH Lab Routine Postsurgical hypothyroidism Expected: 09/28/2025, Expires: 09/28/2025 [facility] Comment on above: Expected: 09/28/2025, Expires: Start: 09-28-2025 End: 09-28-2025 Thyroxine (T4) free [Mass/volume] in Serum or Plasma T4, free Lab Routine Postsurgical hypothyroidism Expected: 09/28/2025, Expires: 09/28/2025 [facility] Comment on above: Expected: 09/28/2025, Expires: Start: 09-28-2025 End: 09-28-2025 Patient encounter procedure 09/28/2025 9:40 AM EST Office Visit [facility] [address] [place] [phone] Chloe Carvalho MD [address] [place] [id number] [facility] Start: 08-25-2025 Thyroid stimulating hormone measurement TSH Level [facility] Start: 06-28-2025 Depression Monitoring Depression Monitoring [facility] Start: 05-06-2025 DTaP/Tdap/Td vaccine (3 - Td) DTaP/Tdap/Td vaccine (3 - Td) [place] Start: 05-06-2025 DTaP/Tdap/Td vaccine (7 - Td or Tdap) DTaP/Tdap/Td vaccine (7 - Td or Tdap) [facility] Start: 05-06-2025 Urine microalbumin profile DTAP,TDAP,TD (3 - Td or Tdap) [facility] Start: 04-27-2025 Thyroid stimulating hormone measurement TSH Level [facility] Start: 03-27-2025 Influenza vaccination Influenza Vaccine (Season Ended) [facility] Start: 01-24-2025 End: 01-24-2025 Telemedicine consultation with patient 01/24/2025 11:40 AM EDT Telemedicine [facility] Primary Care - [address] [place] [address] Chandan Boss DO [address] [place] [address] [place] [phone] [facility] Start: 01-21-2025 Thyroid stimulating hormone measurement TSH Level [facility] [employer] Start: 12-29-2024 End: 09-28-2025 Thyrotropin [Units/volume] in Serum or Plasma TSH Lab Routine Postsurgical hypothyroidism Expected: 12/29/2024, Expires: 09/28/2025 [facility] [employer] Comment on above: Expected: 12/29/2024, Expires: Start: 12-29-2024 End: 09-28-2025 Thyroxine (T4) free [Mass/volume] in Serum or Plasma T4, free Lab Routine Postsurgical hypothyroidism Expected: 12/29/2024, Expires: 09/28/2025 [employer] Work Phone: Comment on above: Expected: 12/29/2024, Expires: Start: 11-09-2024 Thyroid stimulating hormone measurement TSH Level [facility] [employer] Start: 11-03-2024 Depression Monitoring Depression Monitoring [facility] [employer] Start: 09-28-2024 End: 09-28-2024 Patient encounter procedure [facility] Start: 08-28-2024 Diabetes mellitus screening Diabetes Screening [facility] [employer] Start: 08-25-2024 End: 08-25-2025 Thyroglobulin ([facility]) Thyroglobulin ([facility]) Lab Routine Encounter for follow-up examination after completed treatment for malignant neoplasm Personal history of malignant neoplasm of thyroid Expected: 08/25/2024 (Approximate), Expires: 08/25/2025 [employer] Work Phone: Comment on above: Expected: 08/25/2024 (Approximate), Expi res: 08/25/2025 Start: 08-06-2024 Thyroid stimulating hormone measurement TSH Level [facility] [employer] Start: 07-28-2024 End: 04-27-2025 25-hydroxyvitamin D3 [Mass/volume] in Serum or Plasma Vitamin D Deficiency Screening (Vit D 25) Lab Routine Postsurgical hypoparathyroidism (HCC) Expected: 07/28/2024, Expires: 04/27/2025 [employer] Work Phone: Comment on above: Expected: 07/28/2024, Expires: Start: 07-28-2024 End: 04-27-2025 Anti-thyroglobulin antibody Anti-thyroglobulin antibody Lab Routine Encounter for follow-up surveillance of thyroid cancer Expected: 07/28/2024, Expires: 04/27/2025 [employer] Comment on above: Expected: 07/28/2024, Expires: Start: 07-28-2024 End: 04-27-2025 Comprehensive metabolic 1998 panel - Serum or Plasma Comprehensive metabolic panel Lab Routine Postsurgical hypoparathyroidism (HCC) Expected: 07/28/2024, Expires: 04/27/2025 Check-Cap Comment on above: Expected: 07/28/2024, Expires: Start: 07-28-2024 End: 04-27-2025 Magnesium [Mass/volume] in Serum or Plasma Magnesium Lab Routine Postsurgical hypoparathyroidism (HCC) Expected: 07/28/2024, Expires: 04/27/2025 Check-Cap Comment on above: Expected: 07/28/2024, Expires: Start: 07-28-2024 End: 04-27-2025 Parathyrin.intact [Mass/volume] in Serum or Plasma PTH, intact Lab Routine Postsurgical hypoparathyroidism (HCC) Expected: 07/28/2024, Expires: 04/27/2025 Check-Cap Comment on above: Expected: 07/28/2024, Expires: Start: 07-28-2024 End: 04-27-2025 Phosphate [Moles/volume] in Serum or Plasma Phosphorus Lab Routine Postsurgical hypoparathyroidism (HCC) Expected: 07/28/2024, Expires: 04/27/2025 Check-Cap Comment on above: Expected: 07/28/2024, Expires: Start: 07-28-2024 End: 04-27-2025 Thyroglobulin ([facility]) Thyroglobulin ([facility]) Lab Routine Encounter for follow-up surveillance of thyroid cancer Expected: 07/28/2024, Expires: 04/27/2025 Check-Cap Comment on above: Expected: 07/28/2024, Expires: Start: 07-28-2024 End: 04-27-2025 Thyrotropin [Units/volume] in Serum or Plasma TSH Lab Routine Postsurgical hypothyroidism Expected: 07/28/2024, Expires: 04/27/2025 [facility] Comment on above: Expected: 07/28/2024, Expires: Start: 07-28-2024 End: 04-27-2025 Thyroxine (T4) free [Mass/volume] in Serum or Plasma T4, free Lab Routine Postsurgical hypothyroidism Expected: 07/28/2024, Expires: 04/27/2025 [facility] Comment on above: Expected: 07/28/2024, Expires: Start: 05-05-2024 End: 05-05-2025 Hepatic function 2000 panel - Serum or Plasma Hepatic function panel Lab Routine Elevated LFTs Expected: 05/05/2024 (Approximate), Expires: 05/05/2025 [facility] Work Phone: Comment on above: Expected: 05/05/2024 (Approximate), Expi res: 05/05/2025 Start: 05-05-2024 End: 05-05-2024 Telemedicine consultation with patient 05/05/2024 12:00 PM EDT Telemedicine [address] [place] [phone] Chandan Boss DO [address] [place] [address] [place] [id number] [facility] Start: 04-29-2024 Thyroid stimulating hormone measurement TSH Level [facility] Start: 04-08-2024 End: 03-11-2025 Comprehensive metabolic 1998 panel - Serum or Plasma Comprehensive metabolic panel Lab Routine Postsurgical hypothyroidism Expected: 04/08/2024 (Approximate), Expires: 03/11/2025 [facility] Comment on above: Expected: 04/08/2024 (Approximate), Expi res: 03/11/2025 Start: 04-08-2024 End: 03-11-2025 Thyrotropin [Units/volume] in Serum or Plasma TSH Lab Routine Postsurgical hypothyroidism Expected: 04/08/2024 (Approximate), Expires: 03/11/2025 [facility] [employer] Work Phone: Comment on above: Expected: 04/08/2024 (Approximate), Expi res: 03/11/2025 Start: 04-08-2024 End: 03-11-2025 Thyroxine (T4) free [Mass/volume] in Serum or Plasma T4, free Lab Routine Postsurgical hypothyroidism Expected: 04/08/2024 (Approximate), Expires: 03/11/2025 [facility] Comment on above: Expected: 04/08/2024 (Approximate), Expi res: 03/11/2025 Start: 03-27-2024 COVID-19 Vaccine ( season) COVID-19 Vaccine ( season) [facility] Start: 03-27-2024 COVID-19 Vaccine () COVID-19 Vaccine () [facility] Start: 03-27-2024 Influenza vaccination [facility] Start: 02-22-2024 End: 01-24-2025 Comprehensive metabolic 1998 panel - Serum or Plasma Comprehensive metabolic panel Lab Routine Thyroid cancer (HCC) Postsurgical hypoparathyroidism (HCC) Expected: 02/22/2024, Expires: 01/24/2025 [facility] [employer] Work Phone: Comment on above: Expected: 02/22/2024, Expires: Start: 02-22-2024 End: 01-24-2025 Thyrotropin [Units/volume] in Serum or Plasma TSH Lab Routine Thyroid cancer (HCC) Postsurgical hypoparathyroidism (HCC) Expected: 02/22/2024, Expires: 01/24/2025 [facility] Comment on above: Expected: 02/22/2024, Expires: Start: 02-22-2024 End: 01-24-2025 Thyroxine (T4) free [Mass/volume] in Serum or Plasma T4, free Lab Routine Thyroid cancer (HCC) Postsurgical hypoparathyroidism (HCC) Expected: 02/22/2024, Expires: 01/24/2025 [facility] Comment on above: Expected: 02/22/2024, Expires: Start: 01-25-2024 End: 01-25-2024 Patient encounter procedure 01/25/2024 7:20 AM EDT Office Visit [facility] [address] [place] [phone] Chloe Carvalho MD [address] [place] [address] [facility] Start: 12-17-2023 End: 11-18-2024 Comprehensive metabolic 1998 panel - Serum or Plasma Comprehensive metabolic panel Lab Routine Postsurgical hypoparathyroidism (HCC) Expected: 12/17/2023, Expires: 11/18/2024 [facility] Work Phone: Comment on above: Expected: 12/17/2023, Expires: Start: 12-17-2023 End: 11-18-2024 Phosphate [Moles/volume] in Serum or Plasma Phosphorus Lab Routine Postsurgical hypoparathyroidism (HCC) Expected: 12/17/2023, Expires: 11/18/2024 [facility] Comment on above: Expected: 12/17/2023, Expires: Start: 12-17-2023 End: 11-18-2024 Thyrotropin [Units/volume] in Serum or Plasma TSH Lab Routine Postsurgical hypothyroidism Expected: 12/17/2023, Expires: 11/18/2024 [facility] Comment on above: Expected: 12/17/2023, Expires: Start: 12-17-2023 End: 11-18-2024 Thyroxine (T4) free [Mass/volume] in Serum or Plasma T4, free Lab Routine Postsurgical hypothyroidism Expected: 12/17/2023, Expires: 11/18/2024 [facility] Comment on above: Expected: 12/17/2023, Expires: Start: 11-24-2023 End: 11-24-2023 Patient encounter procedure 11/24/2023 7:40 AM EDT Office Visit [facility] [address] [place] [phone] Chloe Carvalho MD [address] [place] [address] [facility] Start: 11-18-2023 Thyroid stimulating hormone measurement TSH Level [facility] Start: 11-06-2023 End: 05-07-2024 Anti-thyroglobulin antibody Anti-thyroglobulin antibody Lab Routine Thyroid cancer (HCC) Expected: 11/06/2023, Expires: 05/07/2024 [facility] Comment on above: Expected: 11/06/2023, Expires: Start: 11-06-2023 End: 05-07-2024 Magnesium [Mass/volume] in Serum or Plasma Magnesium Lab Routine Postsurgical hypoparathyroidism (HCC) Expected: 11/06/2023, Expires: 05/07/2024 [facility] [employer] Comment on above: Expected: 11/06/2023, Expires: Start: 11-06-2023 End: 05-07-2024 Phosphate [Moles/volume] in Serum or Plasma Phosphorus Lab Routine Postsurgical hypoparathyroidism (HCC) Expected: 11/06/2023, Expires: 05/07/2024 [facility] Comment on above: Expected: 11/06/2023, Expires: Start: 11-06-2023 End: 05-07-2024 Thyroglobulin ([facility]) Thyroglobulin ([facility]) Lab Routine Thyroid cancer (HCC) Expected: 11/06/2023, Expires: 05/07/2024 [facility] [employer] Comment on above: Expected: 11/06/2023, Expires: Start: 11-06-2023 End: 05-07-2024 Thyrotropin [Units/volume] in Serum or Plasma [facility] Comment on above: Expected: 11/06/2023, Expires: Start: 11-06-2023 End: 05-07-2024 Thyroxine (T4) free [Mass/volume] in Serum or Plasma [facility] Work Phone: Comment on above: Expected: 11/06/2023, Expires: Start: 11-06-2023 End: 05-07-2024 US Head and neck soft tissue US head neck soft tissue Imaging Routine Thyroid cancer (HCC) Expected: 11/06/2023, Expires: 05/07/2024 [facility] Comment on above: Expected: 11/06/2023, Expires: 4 Start: 09-06-2023 Thyroid stimulating hormone measurement TSH Level [facility] Start: 08-27-2023 End: 08-06-2024 Comprehensive metabolic 1998 panel - Serum or Plasma Comprehensive metabolic panel Lab Routine Postsurgical hypothyroidism Postsurgical hypoparathyroidism (HCC) Expected: 08/27/2023, Expires: 08/06/2024 [facility] Comment on above: Expected: 08/27/2023, Expires: Start: 08-27-2023 End: 08-06-2024 Magnesium [Mass/volume] in Serum or Plasma Magnesium Lab Routine Postsurgical hypothyroidism Postsurgical hypoparathyroidism (HCC) Expected: 08/27/2023, Expires: 08/06/2024 [facility] Work Phone: Comment on above: Expected: 08/27/2023, Expires: 5 Start: 08-27-2023 End: 08-06-2024 Phosphate [Moles/volume] in Serum or Plasma Phosphorus Lab Routine Postsurgical hypothyroidism Postsurgical hypoparathyroidism (HCC) Expected: 08/27/2023, Expires: 08/06/2024 [facility] [employer] Comment on above: Expected: 08/27/2023, Expires: Start: 08-27-2023 End: 08-06-2024 Thyrotropin [Units/volume] in Serum or Plasma TSH Lab Routine Postsurgical hypothyroidism Postsurgical hypoparathyroidism (HCC) Expected: 08/27/2023, Expires: 08/06/2024 [facility] [employer] Comment on above: Expected: 08/27/2023, Expires: Start: 08-27-2023 End: 08-06-2024 Thyroxine (T4) free [Mass/volume] in Serum or Plasma T4, free Lab Routine Postsurgical hypothyroidism Postsurgical hypoparathyroidism (HCC) Expected: 08/27/2023, Expires: 08/06/2024 [facility] Comment on above: Expected: 08/27/2023, Expires: 5 Start: 08-20-2023 End: 08-20-2023 ambulatory 08/20/2023 1:40 PM EST Initial [facility] [address] [place] [id number] Lorena Munroe PA [address] [place] [address] [facility] Start: 08-13-2023 End: 07-16-2024 25-hydroxyvitamin D3 [Mass/volume] in Serum or Plasma Vitamin D Deficiency Screening (Vit D 25) Lab Routine Postsurgical hypoparathyroidism (HCC) Expected: 08/13/2023, Expires: 07/16/2024 [facility] Comment on above: Expected: 08/13/2023, Expires: Start: 08-13-2023 End: 07-16-2024 Calcium.ionized [Moles/volume] in Blood Calcium, ionized Lab Routine Postsurgical hypoparathyroidism (HCC) Expected: 08/13/2023, Expires: 07/16/2024 [facility] Comment on above: Expected: 08/13/2023, Expires: 4 Start: 08-13-2023 End: 07-16-2024 Comprehensive metabolic 1998 panel - Serum or Plasma Comprehensive metabolic panel Lab Routine Postsurgical hypoparathyroidism (HCC) Expected: 08/13/2023, Expires: 07/16/2024 [facility] [employer] Work Phone: Comment on above: Expected: 08/13/2023, Expires: 4 Start: 08-13-2023 End: 07-16-2024 Magnesium [Mass/volume] in Serum or Plasma Magnesium Lab Routine Postsurgical hypoparathyroidism (HCC) Expected: 08/13/2023, Expires: 07/16/2024 [facility] [employer] Comment on above: Expected: 08/13/2023, Expires: Start: 08-13-2023 End: 07-16-2024 Parathyrin.intact [Mass/volume] in Serum or Plasma PTH, intact Lab Routine Postsurgical hypoparathyroidism (HCC) Expected: 08/13/2023, Expires: 07/16/2024 [facility] [employer] Comment on above: Expected: 08/13/2023, Expires: 4 Start: 08-13-2023 End: 07-16-2024 Phosphate [Moles/volume] in Serum or Plasma Phosphorus Lab Routine Postsurgical hypoparathyroidism (HCC) Expected: 08/13/2023, Expires: 07/16/2024 [facility] [employer] Comment on above: Expected: 08/13/2023, Expires: Start: 08-13-2023 End: 07-16-2024 Thyrotropin [Units/volume] in Serum or Plasma TSH Lab Routine Thyroid cancer (HCC) Expected: 08/13/2023, Expires: 07/16/2024 [facility] [employer] Comment on above: Expected: 08/13/2023, Expires: Start: 08-13-2023 End: 07-16-2024 Thyroxine (T4) free [Mass/volume] in Serum or Plasma T4, free Lab Routine Thyroid cancer (HCC) Expected: 08/13/2023, Expires: 07/16/2024 [facility] [employer] Comment on above: Expected: 08/13/2023, Expires: 4 Start: 08-07-2023 End: 05-07-2024 Albumin [Mass/volume] in Serum or Plasma Albumin Lab Routine Postsurgical hypoparathyroidism (HCC) Expected: 08/07/2023, Expires: 05/07/2024 [facility] [employer] Comment on above: Expected: 08/07/2023, Expires: Start: 08-07-2023 End: 05-07-2024 Basic metabolic 1998 panel - Serum or Plasma Basic metabolic panel Lab Routine Postsurgical hypoparathyroidism (HCC) Expected: 08/07/2023, Expires: 05/07/2024 [facility] [employer] Comment on above: Expected: 08/07/2023, Expires: Start: 08-07-2023 End: 05-07-2024 Magnesium [Mass/volume] in Serum or Plasma Magnesium Lab Routine Postsurgical hypoparathyroidism (HCC) Expected: 08/07/2023, Expires: 05/07/2024 [facility] [employer] Comment on above: Expected: 08/07/2023, Expires: 4 Start: 08-07-2023 End: 05-07-2024 Phosphate [Moles/volume] in Serum or Plasma Phosphorus Lab Routine Postsurgical hypoparathyroidism (HCC) Expected: 08/07/2023 (Approximate), Expires: 05/07/2024 [facility] [employer] Comment on above: Expected: 08/07/2023 (Approximate), Expi res: 05/07/2024 Start: 08-07-2023 End: 05-07-2024 Thyrotropin [Units/volume] in Serum or Plasma TSH Lab Routine Thyroid cancer (HCC) Expected: 08/07/2023 (Approximate), Expires: 05/07/2024 [facility] [employer] Comment on above: Expected: 08/07/2023 (Approximate), Expi res: 05/07/2024 Start: 08-07-2023 End: 05-07-2024 Thyroxine (T4) free [Mass/volume] in Serum or Plasma T4, free Lab Routine Thyroid cancer (HCC) Expected: 08/07/2023 (Approximate), Expires: 05/07/2024 [facility] [employer] Comment on above: Expected: 08/07/2023 (Approximate), Expi res: 05/07/2024 Start: 05-07-2023 End: 05-07-2023 Patient encounter procedure [facility] Start: 03-27-2023 COVID-19 Vaccine ( season) COVID-19 Vaccine () [facility] Start: 03-27-[address] [facility] Start: 03-17-2023 Depression Monitoring Depression Monitoring [facility] Start: 03-17-2023 Thyroid stimulating hormone measurement TSH Level [facility] Start: 03-11-2023 End: 03-11-2023 Patient encounter procedure [facility] Start: 01-28-2023 End: 01-28-2023 Telemedicine consultation with patient [facility] Start: 01-18-2023 End: 11-19-2023 25-hydroxyvitamin D3 [Mass/volume] in Serum or Plasma Vitamin D 25 hydroxy Lab Routine Hypocalcemia Expected: 01/18/2023, Expires: 11/19/2023 [facility] [employer] Comment on above: Expected: 01/18/2023, Expires: Start: 01-18-2023 End: 11-19-2023 Comprehensive metabolic 1998 panel - Serum or Plasma Comprehensive metabolic panel Lab Routine Hypocalcemia Expected: 01/18/2023, Expires: 11/19/2023 [facility] [employer] Work Phone: Comment on above: Expected: 01/18/2023, Expires: Start: 11-07-2022 End: 09-09-2023 25-hydroxyvitamin D3 [Mass/volume] in Serum or Plasma Vitamin D 25 hydroxy Lab Routine Hypocalcemia Expected: 11/07/2022, Expires: 09/09/2023 [facility] [employer] Comment on above: Expected: 11/07/2022, Expires: Start: 11-07-2022 End: 09-09-2023 Albumin [Mass/volume] in Serum or Plasma Albumin Lab Routine Hypocalcemia Expected: 11/07/2022, Expires: 09/09/2023 [facility] [employer] Comment on above: Expected: 11/07/2022, Expires: Start: 11-07-2022 End: 09-09-2023 Basic metabolic 1998 panel - Serum or Plasma Basic metabolic panel Lab Routine Hypocalcemia Expected: 11/07/2022, Expires: 09/09/2023 [facility] [employer] Comment on above: Expected: 11/07/2022, Expires: Start: 11-07-2022 End: 09-09-2023 Magnesium [Mass/volume] in Serum or Plasma Magnesium Lab Routine Hypocalcemia Expected: 11/07/2022, Expires: 09/09/2023 [employer] Comment on above: Expected: 11/07/2022, Expires: 4 Start: 11-07-2022 End: 09-09-2023 Phosphate [Moles/volume] in Serum or Plasma Phosphorus Lab Routine Hypocalcemia Expected: 11/07/2022, Expires: 09/09/2023 [facility] Comment on above: Expected: 11/07/2022, Expires: Start: 11-07-2022 End: 09-09-2023 Thyrotropin [Units/volume] in Serum or Plasma TSH Lab Routine Hypothyroidism (acquired) Expected: 11/07/2022, Expires: 09/09/2023 [facility] Comment on above: Expected: 11/07/2022, Expires: Start: 11-07-2022 End: 09-09-2023 Thyroxine (T4) free [Mass/volume] in Serum or Plasma T4, free Lab Routine Hypothyroidism (acquired) Expected: 11/07/2022, Expires: 09/09/2023 [facility] Work Phone: Comment on above: Expected: 11/07/2022, Expires: 4 Start: 10-17-2022 End: 10-18-2023 PELVIC US WHI PELVIC US WHI Anc Imaging Routine Pelvic pain in female Deep dyspareunia Expected: 10/17/2022, Expires: 10/18/2023 [facility] Work Phone: Comment on above: Expected: 10/17/2022, Expires: 4 Start: 09-10-2022 End: 09-10-2022 Patient encounter procedure 09/10/2022 Office Visit Otolaryngology Vishnu Guerrero MD [address] [place] [address] [facility] Start: 09-04-2022 End: 09-04-2022 Patient encounter procedure 09/04/2022 Office Visit Endocrinology Chloe Carvalho MD [address] [facility] [place] [address] [facility] [place] Start: 09-02-2022 Thyroid stimulating hormone measurement TSH [facility] Start: 2022 HPV TESTING HPV TESTING [facility] Start: 2022 Screening for malignant neoplasm of cervix [facility] Start: 05-08-2022 End: 05-08-2022 Patient encounter procedure 05/08/2022 Office Visit Endocrinology Chloe Carvalho MD [address] [place] [address] [facility] [place] Start: 05-02-2022 End: 05-02-2022 Patient encounter procedure 05/02/2022 Office Visit Otolaryngology Vishnu Guerrero MD [address] [place] [address] [facility] Start: 04-25-2022 End: 04-25-2022 Patient encounter procedure 04/25/2022 Appointment General Surgery Vishnu Guerrero MD [address] [place] [address] [facility] General Surgery Start: 03-27-[address] [facility] Start: 02-05-2022 End: 02-05-2022 Patient encounter procedure 02/05/2022 Office Visit General Surgery Gen Surg - [facility] Start: 08-29-2021 COVID-19 VACCINE (3 - Booster for Moderna series) COVID-19 VACCINE (3 - Booster for Moderna series) [facility] Start: 05-24-2021 COVID-19 VACCINE (3 - Booster for Moderna series) COVID-19 VACCINE (3 - Booster for Moderna series) [facility] Start: 05-24-2021 COVID-19 Vaccine (3 - Moderna series) COVID-19 Vaccine (3 - Moderna series) [facility] Start: 03-27-[address] [facility] Start: 03-27-2020 Influenza vaccination Flu vaccine (#1) [place], [place] Start: 09-02-2019 Cervical cancer screen Cervical cancer screen [place], [place] Start: 09-02-2019 Screening for malignant neoplasm of cervix [facility] Start: 05-03-2019 Influenza vaccination Flu vaccine (#1) [place] Comment on above: Postponed from 03/27/2019 (Ill Today) Start: 03-27-2019 Influenza vaccination Flu vaccine (#1) [place] Start: 07-13-2018 Thyroid stimulating hormone measurement TSH testing [facility] Start: 07-13-2018 TSH Qn TSH testing [place] Start: 07-13-2018 TSH testing TSH testing [place], [place] Start: 2013 PAP TESTING PAP TESTING [facility] Start: 2013 Screening for malignant neoplasm of cervix Pap Smear [facility] Start: 2011 Hepatitis A Vaccines (1 of 2 - Risk 2-dose series) Hepatitis A Vaccines (1 of 2 - Risk 2-dose series) [facility] Start: 2011 Hepatitis B Vaccines (1 of 3 - 19+ 3-dose series) Hepatitis B Vaccines (1 of 3 - 19+ 3-dose series) [facility] Start: 2011 Pneumococcal Vaccine: Pediatrics (0 to 5 Years) and At-Risk Patients (6 to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 Pain, Unknown Cause, (Female) Unknown Causes of Abdominal Pain (Female) The exact cause of your belly (abdominal) pain is not clear. This does not mean that this is something to worry about. Everyone likes to know the exact cause of the problem. But sometimes with belly pain, there is no clear-cut cause, and this could be a good thing. The good news is that your symptoms can be treated, and you will feel better. Your condition does not seem serious now. But sometimes the signs of a serious problem may take more time to appear. For this reason, it is important for you to watch for any new symptoms, problems, or worsening of your condition. Over the next few days, the abdominal pain may come and go. Or it may be constant. Other common symptoms can include nausea and vomiting. Sometimes it can be difficult to tell if you feel nauseous. You may just feel bad and not connect that feeling to nausea. Constipation, diarrhea, and a fever may go along with the pain. The pain may continue even if treated correctly over the following days. Depending on how things go, sometimes the cause can become clear and may need more or different treatment. Additional evaluations, medicines, or tests may also be needed. Home care Your healthcare provider may prescribe medicine for pain, symptoms, or an infection. Follow the healthcare provider's instructions for taking these medicines. General care Rest as much as you can until your next exam. No strenuous activities. Try to find positions that ease discomfort. A small pillow placed on the abdomen may help relieve pain. Something warm on your abdomen (such as a heating pad) may help, but be careful not to burn yourself. Diet Don t force yourself to eat, especially if having cramps, vomiting, or diarrhea. Water is important so you don't get dehydrated. Soup may also be good. Sports drinks may also help, especially if they are not too acidic. Don't drink sugary drinks as this can make things worse. Take liquids in small amounts. Don t guzzle them. Caffeine sometimes makes the pain and cramping worse. Don t take dairy products if you have vomiting or diarrhea. Don't eat large amounts at a time. Wait a few minutes between bites. Eat a diet low in fiber (called a low-residue diet). Foods allowed include refined breads, white rice, fruit and vegetable juices without pulp, tender meats. These foods will pass more easily through the intestine. Don t have whole-grain foods, whole fruits and vegetables, meats, seeds and nuts, fried or fatty foods, dairy, alcohol and spicy foods until your symptoms go away. Follow-up care Follow up with your healthcare provider, or as advised, if your pain does not begin to improve in the next 24 hours. Call 911 Call 911 if any of these occur: Trouble breathing Confusion Fainting or loss of consciousness Rapid heart rate Seizure When to seek medical advice Call your healthcare provider right away if any of these occur: Pain gets worse or moves to the right lower abdomen New or worsening vomiting or diarrhea Swelling of the abdomen Unable to pass stool for more than 3 days Fever of 100.4 F (38 C) or higher, or as directed by your healthcare provider. Blood in vomit or bowel movements (dark red or black color) Yellow color of eyes and skin (jaundice) Weakness, dizziness Chest, arm, back, neck, or jaw pain Unexpected vaginal bleeding or missed period Can't keep down liquids or water and you are getting dehydrated [phone] [employer]. [address] [place] [address]. All rights reserved. This information is not intended as a substitute for professional medical care. Always follow your healthcare professional's instructions. Follow Up Care 02/05/2023 10:29:22 With:Follow-up with your [employer] as soon as possible. Address:Unknown When:2-4 days Comments:Return to ED if symptoms worsen With:CHANDAN BOSS DO Address: [address] [id number]- When:2-4 days [facility] 02-05-2023 Evaluation + Plan note Diagnostic Tests PendingUrine Culture 02/05/23Chlamydia trachomatis PCR 02/05/23N. gonorrhoeae PCR 02/05/23Affirm Pathogens DNA Direct Probe 02/05/23 [facility] 02-05-2023 Note Discharge Instructions Thank you for allowing [facility] to assist you with your healthcare needs. The following is important discharge information regarding your hospital visit. Diagnosis from Today's Visit Abdominal pain What to Do Next Instructions from Your Care Team No qualifying data available. Post Acute Orders No qualifying data available. You Need to Schedule the Following Appointments Follow Up with Follow-up with your [employer] [facility] as soon as possible. When Within 2-4 days Why: Return to ED if symptoms worsen Follow Up with CHANDAN BOSS DO When Within 2-4 days Where: [facility] [address] [id number]- Allergies NKA Medications Please ask your primary doctor or pharmacist before taking any other medication not listed, including over the counter drugs, herbal medications, vitamins and or supplements as they may interact with your home medications. What How Much When Why Instructions Last Dose New doxycycline (doxycycline hyclate 100 mg oral capsule) 1 cap by mouth Two (2) times a day Duration: 7 Days Take with at least 8 oz of water and sit up for at least 30 minutes after taking Printed Prescription New hyoscyamine (Levsin SL 0.125 mg sublingual tablet) 2 tab(s) under the tongue Every 6 hours as needed for abdominal discomfort Abdominal pain Duration: 5 Days Printed Prescription Please take this list to your next doctor s visit. Bring all medications you take, including over the counter medications, herbals and other supplements with you to your doctor s visit. Patients and families are reminded to discard old lists and to update any records with all medication providers or retail pharmacies. Education Materials Pelvic Pain, Uncertain Cause Pelvic pain is pain felt in the lowest part of the belly (abdomen) and between the hipbones. The pain may occur suddenly and recently (acute). Or the pain may last for 6 months or longer (chronic). There are many possible causes of pelvic pain. The pain may be due to a problem in the female reproductive system. Or, it may be due to a problem in the digestive, urinary, or musculoskeletal systems. Based on your visit today, the exact cause of your pelvic pain is not certain. Your condition does not appear to be serious at this time. But it is important for you to keep watching for any new symptoms or worsening of your condition. General care Your healthcare provider may advise a number of ways to help manage your pain. These can include: Taking [id number] pain medicine. Stronger pain medicine may also be prescribed, if needed. Applying heat to the pelvic area. Use a heating pad or a hot pack. Taking a hot bath may also help. Getting plenty of rest. Making certain lifestyle changes. These can include practicing good posture and getting regular exercise. Studies have shown that these changes help reduce pelvic pain in some women. Seeing a physical therapist or pain specialist. These healthcare providers can discuss other ways to manage pain with you. Follow-up care Follow up with your healthcare provider, or as advised. When to seek medical advice Call your healthcare provider right away if any of the following occur: Fever of 100.4 F or higher, or as directed by your healthcare provider Pain worsens or you have sudden, severe pain or new pain Nausea, vomiting, sweating, or restlessness Dizziness or fainting Unusual vaginal discharge Abnormal vaginal bleeding (especially bleeding after menopause) [id number] [employer]. [address] [place] [address], [place] [address]. All rights reserved. This information is not intended as a substitute for professional medical care. Always follow your healthcare professional's instructions. Unknown Causes of Abdominal Pain (Female) The exact cause of your belly (abdominal) pain is not clear. This does not mean that this is something to worry about. Everyone likes to know the exact cause of the problem. But sometimes with belly pain, there is no clear-cut cause, and this could be a good thing. The good news is that your symptoms can be treated, and you will feel better. Your condition does not seem serious now. But sometimes the signs of a serious problem may take more time to appear. For this reason, it is important for you to watch for any new symptoms, problems, or worsening of your condition. Over the next few days, the abdominal pain may come and go. Or it may be constant. Other common symptoms can include nausea and vomiting. Sometimes it can be difficult to tell if you feel nauseous. You may just feel bad and not connect that feeling to nausea. Constipation, diarrhea, and a fever may go along with the pain. The pain may continue even if treated correctly over the following days. Depending on how things go, sometimes the cause can become clear and may need more or different treatment. Additional evaluations, medicines, or tests may also be needed. Home care Your healthcare provider may prescribe medicine for pain, symptoms, or an infection. Follow the healthcare provider's instructions for taking these medicines. General care Rest as much as you can until your next exam. No strenuous activities. Try to find positions that ease discomfort. A small pillow placed on the abdomen may help relieve pain. Something warm on your abdomen (such as a heating pad) may help, but be careful not to burn yourself. Diet Don t force yourself to eat, especially if having cramps, vomiting, or diarrhea. Water is important so you don't get dehydrated. Soup may also be good. Sports drinks may also help, especially if they are not too acidic. Don't drink sugary drinks as this can make things worse. Take liquids in small amounts. Don t guzzle them. Caffeine sometimes makes the pain and cramping worse. Don t take dairy products if you have vomiting or diarrhea. Don't eat large amounts at a time. Wait a few minutes between bites. Eat a diet low in fiber (called a low-residue diet). Foods allowed include refined breads, white rice, fruit and vegetable juices without pulp, tender meats. These foods will pass more easily through the intestine. Don t have whole-grain foods, whole fruits and vegetables, meats, seeds and nuts, fried or fatty foods, dairy, alcohol and spicy foods until your symptoms go away. Follow-up care Follow up with your healthcare provider, or as advised, if your pain does not begin to improve in the next 24 hours. Call 911 Call 911 if any of these occur: Trouble breathing Confusion Fainting or loss of consciousness Rapid heart rate Seizure When to seek medical advice Call your healthcare provider right away if any of these occur: Pain gets worse or moves to the right lower abdomen New or worsening vomiting or diarrhea Swelling of the abdomen Unable to pass stool for more than 3 days Fever of 100.4 F (38 C) or higher, or as directed by your healthcare provider. Blood in vomit or bowel movements (dark red or black color) Yellow color of eyes and skin (jaundice) Weakness, dizziness Chest, arm, back, neck, or jaw pain Unexpected vaginal bleeding or missed period Can't keep down liquids or water and you are getting dehydrated [id number] [employer]. [address] [place] [address]. All rights reserved. This information is not intended as a substitute for professional medical care. Always follow your healthcare professional's instructions. Additional Information VACCINATE! IT SAVES LIVES! Members of the community who have not yet received the COVID-19 vaccine and would like to receive it can visit one of [facility] vaccine clinics. There are many vaccine clinic locations within the [facility]. For locations and available times, please visit [email or web address] It is important to note that some COVID mobile vaccine clinics are held outdoors and may be canceled in rainy or stormy conditions. To learn more about pediatric vaccinations (ages 5-11), we invite you to visit the [facility] webpage. https://www.[facility].org/pag es/5449-Ehbgj-Xrrwxcvwuya-Frequent zt-Hmocn-Mbhtsapjq.html To learn more about the COVID-19 vaccine, we invite you to visit the CDC website for a list of frequently asked questions. https://www.cdc.gov/coronavirus/-ncov/vaccines/faq.html [facility] Patient Portal Access Instructions: Stay connected with your healthcare team and access your personal medical information anytime with the [employer] Patient Portal. If you would like a full copy of your medical records please contact the [facility] Medical Records Department Thursday through Thursday between 8a.m. and 4:30p.m. Please follow the directions below to access the portal: 1.Access the email account you provided upon registration to the [facility].2.Look for an invitation email from [facility].3.Open the email and access the invitation link: Accept Invitation to [facility]4.Fill in the required devine to create your account. Sign into [email or web address].[email or web address] with your username and password that you created in the above steps to stay up to date. You can then view a summary of results, a summary of your visits, and the ability to download your summaries to your computer or send the information securely to a physician. Remember that your healthcare information is confidential, so carefully consider who you will allow to register on the [employer] Patient Portal for access to your information. You can also access the [employer] Patient Portal on the Spring.me. Simply click on Health Records under Health Data and then click on the [employer] logo. HOW TO SAFELY DISPOSE OF PRESCRIPTION MEDICATIONS Please use one of the following methods to safely dispose of your unused medications. 1.Use a drug disposal kit: the drug disposal pouch allows you to safely discard your old and unused drugs. Ask your nurse to give you one when you are discharged.2.Visit a local take-back location: Many local pharmacies and police departments have programs that collect old and unwanted prescription drugs. Call your local pharmacy or go to http://bit.ly/8I6Iv8h to find one close to you.3.Make use of household items: Use cat litter or old coffee grounds to dispose medications if other options are not available. Mix your drugs with these household products, seal them in an airtight container and throw it into the garbage. Call [facility]: [phone] to be sure your drugs can be disposed of in this way. Some medicines may require a different approach.4.Never flush your medications down the toilet. IF YOU HAVE BEEN PRESCRIBED AN OPIOIDS FOR PAIN If you have been prescribed an opioid (such as hydrocodone, oxycodone or morphine), it is critical to understand the possible side effects and risks of opioid pain medications. Even when taken as directed, opioids can have several side effects including: Tolerance, meaning you might need to take more of a medication for the same pain relief. Nausea, vomiting and/or constipation. Sleepiness, dizziness, dry mouth, confusion, depression or itching. Physical dependence, meaning you have withdrawal symptoms when a medication is stopped ? this can develop within a few days. KNOW YOUR RESPONSIBILITIES It is important to know exactly how much and how often to take the opioid pain medications you are prescribed. Never take opioids in higher amounts or more often than prescribed. Do not combine opioids with alcohol or other drugs that cause drowsiness, such as benzodiazepines, also known as benzos, including diazepam and alprazolam, muscle relaxants or sleep aids. Never sell or share prescription opioids. This is illegal. Store opioids in a secure place and out of reach of others (including children, family, friends and visitors). The last page(s) of this document has been signed and retained as a CHART COPY Signatures Patient Education Materials Pelvic Pain, Unknown Cause Abdominal Pain, Unknown Cause, (Female) Medication Leaflets My discharge plan and instructions have been reviewed and explained to me and I,RANI FORDE M understand my current condition and have read and understand these discharge instructions. I have received a written copy of the plan/instructions. If I have questions, I am aware that I should contact my doctor. 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 Multiplanar reformatted images are provided for review. Automated exposure control, iterative reconstruction, and/or weight based adjustment of the mA/kV was utilized to reduce the radiation dose to as low as reasonably achievable. COMPARISON: None HISTORY: ORDERING SYSTEM PROVIDED HISTORY: Reason for Exam: pain Right-sided abdominal pain. FINDINGS: There are no lower thoracic findings. Liver: Normal size and density. No mass or biliary dilatation. Gallbladder: Physiologically distended and otherwise unremarkable in appearance. Common duct: Not dilated. Pancreas: No mass, inflammation, calcification or adjacent fluid collection. Coils are noted in the lesser sac. Stomach and duodenum: No mass or wall thickening. Spleen: No mass and is normal in size. Right Kidney: No hydronephrosis, solid mass or visible stone. Left Kidney: No hydronephrosis, solid mass or visible stone. Adrenal glands: Normal The cecum is displaced superiorly and medially. There is a normal appendix. Large and small bowel loops otherwise are unremarkable.. There is a normal appendix in the RIGHT lower quadrant. Retroperitoneum: No lymphadenopathy or hematoma. Aorta: No aneurysm. Urinary bladder: Normal There is a layering of the pelvic fat planes, uterus and adnexal structures otherwise are unremarkable. Mesentery: No mass or inflammatory change. No ascites or free air. No abdominal wall masses or external hernias There are no suspicious bone lesions. IMPRESSION: Normal appendix. Kidneys enhance normally with no evidence of pyelonephritis. Blurring of the pelvic fat planes, this could be normal for the patient, however this could also be seen in the setting of pelvic inflammatory disease or endometriosis. The cecum is positioned superiorly and medially, this is a normal variant and is not usually associated with symptoms however rarely can be symptomatic. Interpreted by: Jose Daniel Martin MD Preliminary Report By: Jose Daniel Martin MD Electronically signed By Jose Daniel Martin MD Dictated Date: 02/05/2023 12:43:18 PM Prelim Date: 02/05/2023 12:51:47 PM Sign Date: 02/05/2023 12:51:47 PM [facility] Note ORIGINAL EXAMINATION: CT OF THE ABDOMEN AND PELVIS WITH CONTRAST02/05/2023 12:[address] ABDOMEN/PELVIS WITH CONTRAST TECHNIQUE: CT of the abdomen and pelvis was performed with the administration of intravenous contrast. Multiplanar reformatted images are provided for review. Automated exposure control, iterative reconstruction, and/or weight based adjustment of the mA/kV was utilized to reduce the radiation dose to as low as reasonably achievable. COMPARISON: None HISTORY: ORDERING SYSTEM PROVIDED HISTORY: Reason for Exam: pain Right-sided abdominal pain. FINDINGS: There are no lower thoracic findings. Liver: Normal size and density. No mass or biliary dilatation. Gallbladder: Physiologically distended and otherwise unremarkable in appearance. Common duct: Not dilated. Pancreas: No mass, inflammation, calcification or adjacent fluid collection. Coils are noted in the lesser sac. Stomach and duodenum: No mass or wall thickening. Spleen: No mass and is normal in size. Right Kidney: No hydronephrosis, solid mass or visible stone. Left Kidney: No hydronephrosis, solid mass or visible stone. Adrenal glands: Normal The cecum is displaced superiorly and medially. There is a normal appendix. Large and small bowel loops otherwise are unremarkable.. There is a normal appendix in the RIGHT lower quadrant. Retroperitoneum: No lymphadenopathy or hematoma. Aorta: No aneurysm. Urinary bladder: Normal There is a layering of the pelvic fat planes, uterus and adnexal structures otherwise are unremarkable. Mesentery: No mass or inflammatory change. No ascites or free air. No abdominal wall masses or external hernias There are no suspicious bone lesions. IMPRESSION: Normal appendix. Kidneys enhance normally with no evidence of pyelonephritis. Blurring of the pelvic fat planes, this could be normal for the patient, however this could also be seen in the setting of pelvic inflammatory disease or endometriosis. The cecum is positioned superiorly and medially, this is a normal variant and is not usually associated with symptoms however rarely can be symptomatic. Interpreted by: Jose Daniel Martin MD Preliminary Report By: Jose Daniel Martin MD Electronically signed By Jose Daniel Martin MD Dictated Date: 02/05/2023 12:43:18 PM Prelim Date: 02/05/2023 12:51:47 PM Sign Date: 02/05/2023 12:51:47 PM Ordering Provider: SANJANA BORJA [facility] 02-03-2023 Discharge summary Note Date/Time February 03, 2023 1:16pm [facility] Medical Records Department [address] [place] [address] Emergency Department Summary 02/03/23 MR#: [id number] Acct: [id number] Name: RANI FORDE Rep #:[id number] : 1990 32 From: [facility] PCP: CHANDAN BOSS DO Status:REG E R Location: ED HPI History of Present Illness Chief Complaint: Abd Pain PFSH PFSH Medical History (Updated 02/03/23 @ 15:[address] Vijay Snider, ) Carpal tunnel syndrome Collapsed lung Thyroid cancer Home Medications ondansetron 4 mg disintegrating tablet 4 mg PO Q8H PRN nausea and vomiting 5 days #15 tabs 02/03/23 [Rx Last Taken Unknown] sulfamethoxazole 800 mg-trimethoprim 160 mg tablet (Bactrim DS) 1 tab PO BID 7 days #14 tabs 02/03/23 [Rx Last Taken Unknown] Allergy/AdvReac Type Severity Reaction Status Date / Time No Known Allergies Allergy Verified 02/03/23 12:31 Surgical History (Updated 02/03/23 @ 12:37 by Ada Vela) H/O right wrist surgery Hx of left knee surgery Social History Smoking Status: Current every day smoker tobacco type: cigarettes EXAM Physical Exam Const Vital Signs: 02/03/23 12:30 02/03/23 14:32 Temperature 97 F L Temperature Source Temporal Pulse Rate 53 L 64 Respiratory Rate 18 17 Blood Pressure 124/97 H 125/86 H Blood Pressure Mean 106 99 Pulse Ox 97 100 Oxygen Delivery Method Room Air Room Air MDM MDM MDM Narrative Medical decision making narrative: HISTORY OF PRESENT ILLNESS: 32-year-old female here with 2 days of right flank and right lower quadrant TTP. Denies urinary complaints. Denies history of kidney stones. Notes history abdominal surgeries. Denies any vomiting but notes nausea. Denies any constipation or diarrhea. Last bowel was yesterday with no melena or hematochezia. REVIEW OF SYSTEMS: Pertinent positives: Abdominal pain, flank pain Pertinent negatives: Syncope, hematemesis PHYSICAL EXAM: Nursing triage notes reviewed, Vital signs reviewed Constitutional: please see [facility] HENT: MMM Eyes: Pupils equal round and reactive to light, Extraocular muscles intact Neck: No stridor, no JVD, full neck ROM Lungs: Clear to auscultation, No wheezing or rales. No increased work of breathing, no conversational dyspnea, no accessory muscle use, no nasal flaring. No respiratory distress noted Heart: Regular rate and rhythm, No murmurs, No rubs and No gallops, 2+ distal pulses (radial, femoral, posterior tibial) in all extremities Abdomen: Soft, right lower quadrant TTP, no rigidity, rebound or guarding, no obvious peritoneal signs, no palpable pulsatile abdominal masses, no auscultatedabdominal bruit : Right CVAT Extremities: No edema Neuro: No focal neurological deficits, cranial nerves II through XII intact, 5/5strength in all extremities. Intact sensation to light touch in all extremities,2+ reflexes bilateral patella tendons. Normal gait. No ataxia. Skin: No rash or lesions noted MEDICAL DECISION MAKING: Chief Complaint: Right lower quadrant, right flank pain External records reviewed: [No recent advanced imaging of the abdomen or pelvis Factors affecting care: Non Social determinants of health: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 reactive to light. HENT: Jaw: No trismus. Nose: No nasal deformity, mucosal edema or rhinorrhea. Mouth: Mucous membranes are not pale, not dry and not cyanotic. No oral lesions. Pharynx: Uvula midline. No oropharyngeal exudate or uvula swelling. Tonsils: No tonsillar exudate. No abnormal masses or lesions Thyroid: No significant thyromegaly. Trachea: Trachea and phonation normal. No tracheal deviation. Pulmonary: Effort: Pulmonary effort is normal. No respiratory distress. Breath sounds: No stridor. Musculoskeletal: Head: Normocephalic and atraumatic. Neck: Full passive range of motion without pain, neck supple. Neck incision is clean dry and intactthere is no signs of any lymphadenopathy or masses in the neck Skin: General: Skin is warm and dry. Findings: No erythema or rash. Neurological: Cranial Nerves: No cranial nerve deficit. Sensory: No sensory deficit. Coordination: Coordination normal. Extremities: No significant peripheral edema or varicosities Psychiatric: Mood and Affect: Mood and affect normal. Cognition and Memory: Cognition and memory normal. documented in this encounterSPremier [facility] [id number] Telephone encounter Note* Telephone Encounter - Kari Herring LPN - 09/09/2022 1:53 PM EST Pt aware. Labs Printed and mailed to pt. [id number] Miscellaneous Notes* Telephone Encounter - Kari Herring LPN - 09/09/2022 1:53 PM EST Pt aware. Labs Printed and mailed to pt. * Telephone Encounter - Chloe Carvalho MD - 09/09/2022 1:20 PM EST - Please inform the patient to increase levothyroxine to 125 mcg daily and to take it on empty stomach by itself -Vitamin D level was very low so I will start her on vitamin D 50,000 units weekly -Continue calcitriol for now. I am hoping we can lower the dose of calcitriol for her with the nextblood draw -Blood work in 2 months (very important to be done on time) Prescriptions sent Thank you * Telephone Encounter - Kari Herring LPN - 09/09/2022 9:43 AM EST Spoke with pt,Pt states she takes levothyroxine 100 mcg every am . She waits at least 1 hour beforeshe eats or drinks anything.Upon questioning pt ,she does take ALL her meds with the levothyroxine at that time.( See med list). Pt does not take any Calcium supplement.Only taking Calcitriol 0.5 1 day. Please advise. * Telephone Encounter - Kari Herring LPN - 09/09/2022 9:21 AM EST ----- Message from Chloe Carvalho MD sent at 09/06/2022 8:52 PM EST ----- 1. Please inform the patient that her TSH was really elevated indicating she needs a higher dose oflevothyroxine however before I change the dose please confirm if she has been taking levothyroxine 100 mcg daily or she is out and for how long she has been out if that is the case 2. If she has been taking it then I recommend to increase levothyroxine to 125 mcg daily. Please load in a prescription after confirming pharmacy and allergy. Blood work in 2 months 3. Calcium and vitamin D level was low. Please confirm if she is taking calcium carbonate 1 tablet daily and if she is taking calcitriol 1 capsule daily. Also please clarify if she is on any vitamin D Please let me know so I can give further recommendations documented in this encounterSPremier Health [facility] [id number] Telephone encounter Note* Telephone Encounter - Chloe Carvalho MD - 09/09/2022 1:20 PM EST - Please inform the patient to increase levothyroxine to 125 mcg daily and to take it on empty stomach by itself -Vitamin D level was very low so I will start her on vitamin D 50,000 units weekly -Continue calcitriol for now. I am hoping we can lower the dose of calcitriol for her with the nextblood draw -Blood work in 2 months (very important to be done on time) Prescriptions sent Thank you [facility] [id number] Telephone encounter Note* Telephone Encounter - Chandan Boss DO - 09/09/2022 10:04 AM EST ordered [facility] [id number] Miscellaneous Notes* Telephone Encounter - Chandan Boss DO - 09/09/2022 10:04 AM EST ordered * Telephone Encounter - Coco Kruse - 09/08/2022 4:50 PM EST Pt informed and would like the referral * Telephone Encounter - Chandan Boss DO - 09/08/2022 4:48 PM EST She received 10 oxycodone from another provider earlier this month. If she needs chronic pain meds,recommend PM * Telephone Encounter - Carlos Mason - 09/05/2022 12:57 PM EST Medication name: oxyCODONE (Roxicodone) 5 MG immediate release tablet Medication dosage: 5 mg (Miligrams Monthly quantity needed: 20 How many day supply requestin days Medication route: oral (PO) Medication administration time(s): as needed (PRN) If taking medication PRN, reason for taking medication: Severe Pain If this is a controlled substance do you receive this or any other controlled medication from any other doctor or facility: Yes - percocet post carpal tunnel surgery Ordering provider: Dr. Boss Date of last office visit: 08/01/2022 Date of next office visit: None Date of last refill: (see medication tab): 08/26/2022 Updated/Validated preferred pharmacy: Yes Patient instructed to contact the pharmacy prior to picking up the medication: Yes documented in this encounterSPremier [facility] [id number] Telephone encounter Note* Telephone Encounter - Kari Herring LPN - 09/09/2022 9:43 AM EST Spoke with pt,Pt states she takes levothyroxine 100 mcg every am . She waits at least 1 hour beforeshe eats or drinks anything.Upon questioning pt ,she does take ALL her meds with the levothyroxine at that time.( See med list). Pt does not take any Calcium supplement.Only taking Calcitriol 0.5 1 day. Please advise. [facility] [id number] Telephone encounter Note* Telephone Encounter - Kari Herring LPN - 09/09/2022 9:21 AM EST ----- Message from Chloe Carvalho MD sent at 09/06/2022 8:52 PM EST ----- 1. Please inform the patient that her TSH was really elevated indicating she needs a higher dose oflevothyroxine however before I change the dose please confirm if she has been taking levothyroxine 100 mcg daily or she is out and for how long she has been out if that is the case 2. If she has been taking it then I recommend to increase levothyroxine to 125 mcg daily. Please load in a prescription after confirming pharmacy and allergy. Blood work in 2 months 3. Calcium and vitamin D level was low. Please confirm if she is taking calcium carbonate 1 tablet daily and if she is taking calcitriol 1 capsule daily. Also please clarify if she is on any vitamin D Please let me know so I can give further recommendations [facility] [id number] Telephone encounter Note* Telephone Encounter - Coco Kruse - 09/08/2022 4:50 PM EST Pt informed and would like the referral [facility] [id number] Telephone encounter Note* Telephone Encounter - Chandan Boss DO - 09/08/2022 4:48 PM EST She received 10 oxycodone from another provider earlier this month. If she needs chronic pain meds,recommend PM [facility] [id number] Telephone encounter Note* Telephone Encounter - Karen Geiger - 09/08/2022 11:42 AM EST Name of caller: Rani Contact phone number: [phone] Relationship to Patient: patient Provider: YARY Herring Practice: Endocrinology Chief Complaint/Reason for Call: Rani was returning a phone call from the office to discuss bloodwork results. Please be advised. Best time of day caller can be reached: Any Patient advised that office/PCP has 24-48 business hours to return their call: Yes [facility] [id number] Miscellaneous Notes* Telephone Encounter - Karen Geiger - 09/08/2022 11:42 AM EST Name of caller: Rani Contact phone number: [phone] Relationship to Patient: patient Provider: YARY Herring Practice: Endocrinology Chief Complaint/Reason for Call: Rani was returning a phone call from the office to discuss bloodwork results. Please be advised. Best time of day caller can be reached: Any Patient advised that office/PCP has 24-48 business hours to return their call: Yes * Telephone Encounter - Kari Herring LPN - 09/08/2022 10:11 AM EST Left to call back. * Telephone Encounter - Kari Herring LPN - 09/08/2022 10:11 AM EST ----- Message from Chloe Carvalho MD sent at 09/06/2022 8:52 PM EST ----- 1. Please inform the patient that her TSH was really elevated indicating she needs a higher dose oflevothyroxine however before I change the dose please confirm if she has been taking levothyroxine 100 mcg daily or she is out and for how long she has been out if that is the case 2. If she has been taking it then I recommend to increase levothyroxine to 125 mcg daily. Please load in a prescription after confirming pharmacy and allergy. Blood work in 2 months 3. Calcium and vitamin D level was low. Please confirm if she is taking calcium carbonate 1 tablet daily and if she is taking calcitriol 1 capsule daily. Also please clarify if she is on any vitamin D Please let me know so I can give further recommendations documented in this encounterSPremier [facility] [id number] Telephone encounter Note* Telephone Encounter - Kari Herring LPN - 09/08/2022 10:11 AM EST Left to call back. [facility] [id number] Telephone encounter Note* Telephone Encounter - Kari Herring LPN - 09/08/2022 10:11 AM EST ----- Message from Chloe Carvalho MD sent at 09/06/2022 8:52 PM EST ----- 1. Please inform the patient that her TSH was really elevated indicating she needs a higher dose oflevothyroxine however before I change the dose please confirm if she has been taking levothyroxine 100 mcg daily or she is out and for how long she has been out if that is the case 2. If she has been taking it then I recommend to increase levothyroxine to 125 mcg daily. Please load in a prescription after confirming pharmacy and allergy. Blood work in 2 months 3. Calcium and vitamin D level was low. Please confirm if she is taking calcium carbonate 1 tablet daily and if she is taking calcitriol 1 capsule daily. Also please clarify if she is on any vitamin D Please let me know so I can give further recommendations [facility] [id number] Miscellaneous Notes* Result Encounter Note - Chloe Carvalho MD - 09/06/2022 8:21 AM EST 1. Please inform the patient that her TSH was really elevated indicating she needs a higher dose oflevothyroxine however before I change the dose please confirm if she has been taking levothyroxine 100 mcg daily or she is out and for how long she has been out if that is the case 2. If she has been taking it then I recommend to increase levothyroxine to 125 mcg daily. Please load in a prescription after confirming pharmacy and allergy. Blood work in 2 months 3. Calcium and vitamin D level was low. Please confirm if she is taking calcium carbonate 1 tablet daily and if she is taking calcitriol 1 capsule daily. Also please clarify if she is on any vitamin D Please let me know so I can give further recommendations * Result Encounter Note - Kari Herring LPN - 09/06/2022 8:21 AM EST Spoke with pt ,she will call back in 1 week if she has not heard back.KEEP THIS CHART OPEN. * Result Encounter Note - Chloe Carvalho MD - 09/06/2022 8:21 AM EST Please inform the patient that her tumor marker for thyroglobulin with doing more specific testing was low and this is a good sign. The antibody was positive but the thyroglobulin level was very low indicating there is no evidence of recurrence. This is something that we will continue to monitor atleast once a year For now we will make sure that her thyroid function test is normal. We increased the dose of her levothyroxine she is due for blood work to be done in 2 months as we discussed in previous encounters * Result Encounter Note - Kari Herring LPN - 09/06/2022 8:21 AM EST Pt aware. documented in this [facility] [id number] Progress note* Result Encounter Note - Chloe Carvalho MD - 09/06/2022 8:21 AM EST 1. Please inform the patient that her TSH was really elevated indicating she needs a higher dose oflevothyroxine however before I change the dose please confirm if she has been taking levothyroxine 100 mcg daily or she is out and for how long she has been out if that is the case 2. If she has been taking it then I recommend to increase levothyroxine to 125 mcg daily. Please load in a prescription after confirming pharmacy and allergy. Blood work in 2 months 3. Calcium and vitamin D level was low. Please confirm if she is taking calcium carbonate 1 tablet daily and if she is taking calcitriol 1 capsule daily. Also please clarify if she is on any vitamin D Please let me know so I can give further recommendations [employer] Phone: [phone] 265-401002-11-2023 Progress note* Result Encounter Note - Kari Herring LPN - 09/06/2022 8:21 AM EST Spoke with pt ,she will call back in 1 week if she has not heard back.KEEP THIS CHART OPEN. [facility] [id number] Progress note* Result Encounter Note - Chloe Carvalho MD - 09/06/2022 8:21 AM EST Please inform the patient that her tumor marker for thyroglobulin with doing more specific testing was low and this is a good sign. The antibody was positive but the thyroglobulin level was very low indicating there is no evidence of recurrence. This is something that we will continue to monitor atleast once a year For now we will make sure that her thyroid function test is normal. We increased the dose of her levothyroxine she is due for blood work to be done in 2 months as we discussed in previous encounters [facility]02-11-2023 Progress note* Result Encounter Note - Kari Herring LPN - 09/06/2022 8:21 AM EST Pt aware. [facility] [id number] Telephone encounter Note* Telephone Encounter - Carlos Mason - 09/05/2022 12:57 PM EST Medication name: oxyCODONE (Roxicodone) 5 MG immediate release tablet Medication dosage: 5 mg (Miligrams Monthly quantity needed: 20 How many day supply requestin days Medication route: oral (PO) Medication administration time(s): as needed (PRN) If taking medication PRN, reason for taking medication: Severe Pain If this is a controlled substance do you receive this or any other controlled medication from any other doctor or facility: Yes - percocet post carpal tunnel surgery Ordering provider: Dr. Boss Date of last office visit: 08/01/2022 Date of next office visit: None Date of last refill: (see medication tab): 08/26/2022 Updated/Validated preferred pharmacy: Yes Patient instructed to contact the pharmacy prior to picking up the medication: Yes [facility]02-09-2023 Miscellaneous Notes* Telephone Encounter - Tessie Art [employer] [facility] - 09/04/2022 2:34 PM EST Referral submitted to the portal for pain management. Ref#[id number] Tessie Art [employer] [facility] September 04, 2022 2:35 PM documented in this encounterSt[facility] Miscellaneous Notes* Telephone Encounter - Tessie Art [place] [facility] - 09/04/2022 8:18 AM EST An order for a referral to pain management is attached for completion and signature. Tessie Art [employer] [facility] September 04, 2022 8:18 AM documented in this encounterSt. [facility]01-31-2023 Telephone encounter Note * Telephone Encounter - Brisa Chowdhury - 08/26/2022 9:49 AM EST Medication name: oxyCODONE (Roxicodone) 5 MG immediate release tablet Medication dosage: 5 mg (Miligrams Monthly quantity needed: 20 tablet How many day supply requestin days Medication route: oral (PO) Medication administration time(s): Every 6 hours PRN for severe pain (7-10) If taking medication PRN, reason for taking medication: as needed for severe pain (7-10) If this is a controlled substance do you receive this or any other controlled medication from any other doctor or facility: Yes Ordering provider: Dr Chandan Boss Date of last office visit: 08-01-2022 Date of next office visit: Date of last refill: (see medication tab): 08-01-2022 Updated/Validated preferred pharmacy: Yes Patient instructed to contact the pharmacy prior to picking up the medication: Yes [facility] [id number] Miscellaneous Notes* Telephone Encounter - Brisa Chowdhury - 08/26/2022 9:49 AM EST Medication name: oxyCODONE (Roxicodone) 5 MG immediate release tablet Medication dosage: 5 mg (Miligrams Monthly quantity needed: 20 tablet How many day supply requestin days Medication route: oral (PO) Medication administration time(s): Every 6 hours PRN for severe pain (7-10) If taking medication PRN, reason for taking medication: as needed for severe pain (7-10) If this is a controlled substance do you receive this or any other controlled medication from any other doctor or facility: Yes Ordering provider: Dr Chandan Boss Date of last office visit: 08-01-2022 Date of next office visit: Date of last refill: (see medication tab): 08-01-2022 Updated/Validated preferred pharmacy: Yes Patient instructed to contact the pharmacy prior to picking up the medication: Yes documented in this [facility]01-27-2023 History of Present illness Narrative* Yara Herring MD - 08/22/2022 8:19 PM EST Images from the original note were not included. Yara Herring MD Hand & Upper Extremity Surgery [address], [place] [address], [place] [address] [address], [place] [address] [address], [address], [place] [address] OUTPATIENT FOLLOW UP SERVICE DATE: 08/22/2022 HISTORY OF PRESENT ILLNESS Rani Forde presents to the office for follow up of right carpal tunnel syndrome and post-op right distal radius from outside hospital on 06/30/22. She has been going to OT for the wrist and has had some improvement in motion. She underwent a corticosteroid injection into the carpal tunnel on 08/01/22. She states that she had temporary relief of her symptoms with this. However, they have since returned and she complains of numbness/tingling in the median nerve distribution. She also has some scar sensitivity at the distal radius incision and is working with OT on this. She continues to have worsening pain of the right shoulder. She is not sure if this radiates from the neck. PAST MEDICAL HISTORY Past medical, surgical, family, and social histories have been reviewed and updated with the patient today and are located elsewhere in the medical record. ALLERGIES ALLERGIES Allergen Reactions Adhesive Rash Chocolate Swelling Latex Itching PHYSICAL EXAMINATION: VITAL SIGNS: Resp 18 Ht 5' 2 (1.58m) Wt 130 lb (59.0kg) LMP 06/21/2022 BMI 23.77 kg/(m^2). GENERAL: The patient is well developed and well nourished, awake, alert, and oriented with appropriate mood and affect. Normal gait and station. SKIN: The skin over the right hand shows no rash, lesion or erythema, and that is comparable to thecontralateral hand. There is a well healed incision over the distal wrist. INSPECTION/PALPATION: There is no gross asymmetry compared to the contralateral hand. There is focal swelling, and no palpable joint effusion. TENDERNESS: There is mild tenderness to palpation along the thenar musculature and distal radius. ROM: There is decreased range of motion of the wrist and hand. Able to make full composite fist. LIGAMENTS: There is no gross ligamentous laxity. MUSCLE: Bed Maker strength is decreased. No thenar atrophy present. APB strength 5/5. NEURO: There is decreased sensation of the thumb, index, and long finger of the right hand with positive Tinel's over the median nerve at the wrist, positive Phalen's test, positive Noam's test. Negative Tinel's over the ulnar nerve at the right elbow. VASCULAR: Strong radial pulse. Excellent capillary refill to all digits. IMAGING PER MY INTERPRETATION: X-rays of the right wrist from outpatient [place] [facility] were reviewed and demonstrate maintained fracture reduction with healing at the fracture site. No changes in implant alignment. ASSESSMENT AND PLAN (Z98.890, Z87.81) S/P ORIF (open reduction internal fixation) fracture (primary encounter diagnosis) (G56.01) Right carpal tunnel syndrome (M25.511) Acute pain of right shoulder I reviewed the X-rays with the patient. Post-op protocol for open reduction internal fixation: At 6-8 weeks, we will plan to begin strengthening if healing is achieved on imaging. At 8-12 weeks, patient may return to work full duty pendingprogress and depending on job requirements. Given her temporary improvement with a corticosteroid injection, she is a candidate for surgical intervention for the carpal tunnel. We discussed the options of open carpal tunnel decompression under local anesthesia or MAC anesthesia. Risks were reviewed for each procedure including risks of anesthesia type, risk of nerve injury,risk of infection and risk of bleeding. Pillar pain post-operatively was also discussed. I discussed the post- operative protocol: use of hand for light activities immediately post-op, no heavy lifting until skin heals, suture removal within 10-14 days, return to work depending on the type of work duties required. I reviewed risks of surgery as they pertain to this particular patient including incomplete improvement due to possible underlying radiculopathy. Overall risks also to include, but not limited to; injury to neuro-vascular structures, muscles, tendons,or ligaments. The possibility of infection, or other wound complications. The possibility of no improvement, or worsening of the pre-op symptoms, and the need for further surgery. No guarantees were stated or implied. Follow up post-operatively. Patient instructed to call the office with questions or concerns. Yara Herring MD Medical Decision Making: Problems: Moderate: Acute complicated injury and 1+ chronic illnesses with change Data: Unique test result(s) reviewed: 1 Risk: Moderate: Decision on minor surgery w/ risk factors Medical Decision Making Level: 4 - Moderate * Yara Herring MD - 08/22/2022 11:09 AM EST Jayden (Irene) Operative Scheduling Details Diagnosis: right carpal tunnel syndrome Procedure: Open right carpal tunnel decompression (CPT 66277) OR Time Needed: 1 hour [place] or [facility] or [facility]: [facility] Equipment Request: KMI knife and sled For [facility] please have [employer] carpal tunnel specials tray which houses KMI sled Anesthesia: MAC/local Post op appointment: 7-10 days Inpatient stay: No Block Needed: No Pre Testing Needed: No Occupational Therapy: None * Danielle Montgomery LPN - 08/22/2022 10:01 AM EST REVIEW OF SYSTEMS: GENERAL: Well developed, well nourished. No acute distress PAIN: 610 CARDIOVASCULAR: Negative for chest pain, leg swelling and palpations. MSK: right wrist right middle finger - numbness SKIN: Negative for lesions, rash, itching, metal sensitivity NEURO: Negative for seizure, trauma, numbness/tingling of extremities. ENDOCRINE: Negative for diabetic associated symptoms HEMATOLOGY: Negative for excessive bleeding, clots, bleeding disorders. documented in this encounterSt. [facility]01-25-2023 History of Present illness Narrative* Sis Chin OT/Matthew - 08/20/2022 10:17 AM EST Episode Visit Count: 2 Therapist That Will Accept/Oversee The Plan Of Care: Sis Chin Start of Care Date: 08/06/22 Onset Date: 06/30/22 Plan of Care Certification Date: 08/06/22 Next Certification Due Date: 10/01/22 Patient Identified by Name and Date of : Yes [facility]AB[facility] SPORTS THERAPY OCCUPATIONAL THERAPY TREATMENT NOTE ASSESSMENT: Rani Forde tolerated the session with expected muscle soreness. She demonstrated difficulty with pain, limited ROM and poor functional use of RUE. The patient will continue to benefit from ongoing skilled occupational therapy to progress toward set goals. Current Frequency: 1x/week Duration: 8 weeks Total Number of Visits Planned: 8 Planned Treatment Interventions: Therapeutic exercise (60990);Therapeutic activities (80841);Manualtherapy (20074);Self-senior living management (64622);Orthotics management and training (20530,43178) PLAN FOR NEXT VISIT: Advance AROM per distal radius fracture protocol SUBJECTIVE: 7 wks post ORIF R distal radius Functional Limitations: physical activities;recreational activities;gripping;pinching;carrying Pain: Pain Pain Level: 7 (hypersensitivity of scar area) Pain Location: Wrist - Right;Hand - Right (Pt also complains of R shoulder pain; she will discuss with physician at next visit.) Description: Numbness;Sharp Frequency: Continuous Post Treatment Pain Post Treatment Pain Level: 6 Post Treatment Pain Location: Wrist - Right;Hand - Right;Shoulder - Right Post Treatment Pain Description: Sore;Numbness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 IntraVENous, ONCE, On 08/03/21 at 2131, For 1 dose, Recommended route is IM. For IV administration, dilute to 10ml with normal saline. Must be administered over at least 10 minutes. 2200 (Given - Provid er: Sherley Srinivasan RN) sodium chloride flush 0.9 % injection 3 mL(Linked Group 1) 3 mL, IntraVENous, EVERY 8 HOURS, First dose on 08/03/21 at 2131, Flush line with 3-5 mL 2130 (Due) PRN Medication Order 08/01/2021 08/02/2021 08/03/2021 iopamidol (ISOVUE-370) 76 % injection 75 mL (COMPLETED) 75 mL, IntraVENous, IMG ONCE PRN, Other, Starting on 08/03/21 at 2220, For 1 dose 2240 (Given - Provid er: Sis Machado) Linked Groups Order Group 1: Saline lock IV (COMPLETED) Routine, CONTINUOUS, Starting on 08/03/21 at 2130, Until Specified And sodium chloride flush 0.9 % injection 3 mLJump to med 3 mL, IntraVENous, EVERY 8 HOURS, First dose on 08/03/21 at 2131
Flush line with 3-5 mL
Scheduled Medication Order 01/21/2022 01/22/2022 01/23/2022 acetaminophen (TYLENOL) tablet 1,000 mg (COMPLETED) 1,000 mg, Oral, ONCE, 1 dose, On Thu01/22/22 at 0900, Maximum dose of acetaminophen is 4000 mg from all sources in 24 hours. Do not administer if patient has taken tylenol <4 hours earlier. Do not give if contraindicated ie. 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 Recommend to repeat in 3-4 hours after initial dose if still intra-op., Pre-op (day of surgery) 1025 (Given by Other Clinician - Provider: Alycia Ann RN - Comment: buffet server gave in or)1534 (Stopped - Provider: Junior Garza RN) celecoxib (CELEBREX) capsule 400 mg (COMPLETED) 400 mg, Oral, ONCE, 1 dose, On Thu01/22/22 at 0900, Pre-op (day of surgery) 0857 (Given - Provider: Lynnette Pompa, PATTY) famotidine (PEPCID) tablet 20 mg (COMPLETED) 20 mg, Oral, ONCE, 1 dose, On Thu01/22/22 at 0900, Pre-op (day of surgery) 0857 (Given - Provider: Lynnette Pompa, PATTY) gabapentin (NEURONTIN) capsule 100 mg (COMPLETED) 100 mg, Oral, ONCE, 1 dose, On Thu01/22/22 at 0900, For Age >69, or Low GFR, Pre-op (day of surgery) 0857 (Given - Provider: Lynnette Pompa RN) LORazepam (ATIVAN) injection 0.5 mg (COMPLETED) 0.5 mg, IntraVENous, ONCE, 1 dose, On Thu01/22/22 at 1300, PACU only 1357 (Given - Provider: Alycia Ann RN) sodium chloride flush 0.9 % injection 5-40 mL 5-40 mL, IntraVENous, EVERY 12 HOURS SCHEDULED (2 times per day), First dose on Thu01/22/22 at 2100, Until Discontinued, For Line Patency: Peripheral IV = 5 mL; Midline or Central Line = 10 mL/lumen. If following IV push medication, administer flush at same rate as the IV push. Flush volume is determined by type of infusion therapy being given. For non-viscous solutions use: Peripheral IV = 5 mL Midline or Central Line = 10 mL/lumen For viscous solutions (i.e. blood components, parenteral nutrition, contrast media, or after obtaining blood sample) use: Peripheral IV = 10 mL Midline or Central Line = 20 mL/lumen, Post-op 2001 (Not Given - Provider: Luis Fox RN - Reason: IV Fluid Infusing) 0800 (Given - Provider: Lalita Bullard LPN)2100 (Due) Continuous Medication Order 01/21/2022 01/22/2022 01/23/2022 0.9 % sodium chloride infusion (CANCELED) IntraVENous, at 75 mL/hr, CONTINUOUS, Starting on Thu01/22/22 at 1545, Post-op 1552 (New Bag - Provider: Cristina Garza RN) PRN Medication Order 01/21/2022 01/22/2022 01/23/2022 0.9 % sodium chloride infusion IntraVENous, at 5-250 mL/hr, PRN, if patient receiving piggyback infusions and maintenance fluids are not ordered OR KVO fluids to protect IV site / prevent frequent line interruptions/ long duration, Starting on Thu01/22/22 at 1525, For piggyback infusion, administer at same rate as piggyback for a total of 25 mL. Enter 25 mL into dose field and piggyback rate into rate field of order. If piggyback is infusing at a rate less than 100 mL/hr, enter 25 mL into dose field and 100 mL/hr into rate field of order. For KVO fluids, enter rate of 20 mL/hr or less into rate field of order., Post-op acetaminophen (TYLENOL) tablet 650 mg 650 mg, Oral, EVERY 4 HOURS PRN, Starting on Thu01/22/22 at 1525, Until Discontinued, Other, Pain (1-10), Give in addition to any other pain medication ordered at same time for any pain indication., Post-op ALPRAZolam (NIRAVAM) dissolvable tablet 0.25 mg (CANCELED) 0.25 mg, Oral, PRN, Starting on Thu01/22/22 at 0834, Until Thu01/22/22 at 1506, Anxiety, Pre-op (day of surgery) 0901 (Given - Provider: Lynnette Pompa, PATTY) Benzocaine-Menthol (CEPACOL) 1 lozenge 1 lozenge, Oral, EVERY 2 HOURS PRN, Starting on Kala 01/23/22 at 1301, Until Discontinued, Sore Throat guaiFENesin-dextromethorpha n (ROBITUSSIN DM) 100-10 MG/5ML syrup 5 mL 5 mL, Oral, EVERY 4 HOURS PRN, Starting on Thu01/22/22 at 2139, Until Discontinued, Cough HYDROmorphone (DILAUDID) injection 0.5 mg (CANCELED) HYDROmorphone (DILAUDID) 1.5mg IV is equivalent to morphine 10mg IV, 0.5 mg, IntraVENous, EVERY 5 MIN PRN, 4 doses, Starting on Thu01/22/22 at 1239, Until Thu01/22/22 at 1506, Pain Severe (7-10), Phase I or Phase II- Initial therapy for severe pain (7-10). Restricted to a 90 minute time frame starting when the patient can verbally state their pain score. If oral meds are utilized, do not return to initial therapy medications. SDS and, PACU only 1353 (Given - Provider: Alycia Ann RN) morphine sulfate (PF) injection 2 mg(Linked Group 1) 2 mg, IntraVENous, EVERY 2 HOURS PRN, Starting on Thu01/22/22 at 1525, Until Discontinued, Pain Moderate (4-6), If oral and IV narcotics ordered, use oral first and only use IV if oral is ineffective or cannot take oral. Do Not give oral and IV within 1 hour of each other unless specifically ordered., Post-op morphine sulfate (PF) injection 4 mg(Linked Group 1) 4 mg, IntraVENous, EVERY 2 HOURS PRN, Starting on Thu01/22/22 at 1525, Until Discontinued, Pain Severe (7-10), If oral and IV narcotics ordered, use oral first and only use IV if oral is ineffective or cannot take oral. Do Not give oral and IV within 1 hour of each other unless specifically ordered., Post-op ondansetron (ZOFRAN) injection 4 mg(Linked Group 2) 4 mg, IntraVENous, EVERY 6 HOURS PRN, Starting on Thu01/22/22 at 1525, Until Discontinued, Nausea, Vomiting, Administer if oral route cannot be used., Post-op ondansetron (ZOFRAN-ODT) disintegrating tablet 4 mg(Linked Group 2) 4 mg, Oral, EVERY 8 HOURS PRN, Starting on Thu01/22/22 at 1525, Until Discontinued, Nausea, Vomiting, Post-op oxyCODONE (ROXICODONE) immediate release tablet 10 mg(Linked Group 3) 10 mg, Oral, EVERY 4 HOURS PRN, Starting on Thu01/22/22 at 1525, Until Discontinued, Pain Severe (7-10), Post-op 1550 (Given - Provider: Junior Garza RN)1952 (Given - Provider: Luis Fox RN) 42 (Given - Provider: Luis Fox RN)441 (Given - Provider: Luis Fox RN)0841 (Given - Provider: Lalita Bullard LPN)1247 (Given - Provider: Lalita Bullard LPN) oxyCODONE (ROXICODONE) immediate release tablet 5 mg(Linked Group 3) 5 mg, Oral, EVERY 4 HOURS PRN, Starting on Thu01/22/22 at 1525, Until Discontinued, Pain Moderate (4-6), Post-op 1550 (See Alternative - Provider: Junior Garza RN)1952 (See Alternative - Provider: Luis Fox RN) 42 (See Alternative - Provider: Luis Fox RN)441 (See Alternative - Provider: Luis Fox RN)0841 (See Alternative - Provider: Lalita Bullard LPN)1247 (See Alternative - Provider: Lalita Bullard LPN) sodium chloride flush 0.9 % injection 5-40 mL 5-40 mL, IntraVENous, PRN, Starting on Thu01/22/22 at 1525, Until Discontinued, Line Care, After every IV line use, For Line Patency: Peripheral IV = 5 mL; Midline or Central Line = 10 mL/lumen. If following IV push medication, administer flush at same rate as the IV push. Flush volume is determined by type of infusion therapy being given. For non-viscous solutions use: Peripheral IV = 5 mL Midline or Central Line = 10 mL/lumen For viscous solutions (i.e. blood components, parenteral nutrition, contrast media, or after obtaining blood sample) use: Peripheral IV = 10 mL Midline or Central Line = 20 mL/lumen, Post-op Linked Groups Order Group 1: morphine sulfate (PF) injection 2 mgJump to med 2 mg, IntraVENous, EVERY 2 HOURS PRN, Starting on Thu01/22/22 at 1525, Until Discontinued, Pain Moderate (4-6)
If oral and IV narcotics ordered, use oral first and only use IV if oral is ineffective or cannot take oral. Do Not give oral and IV within 1 hour of each other unless specifically ordered.
Post-op Or morphine sulfate (PF) injection 4 mgJump to med 4 mg, IntraVENous, EVERY 2 HOURS PRN, Starting on Thu01/22/22 at 1525, Until Discontinued, Pain Severe (7-10)
If oral and IV narcotics ordered, use oral first and only use IV if oral is ineffective or cannot take oral. Do Not give oral and IV within 1 hour of each other unless specifically ordered.
Post-op Group 2: ondansetron (ZOFRAN-ODT) disintegrating tablet 4 mgJump to med 4 mg, Oral, EVERY 8 HOURS PRN, Starting on Thu01/22/22 at 1525, Until Discontinued, Nausea, Vomiting, Post-op Or ondansetron (ZOFRAN) injection 4 mgJump to med 4 mg, IntraVENous, EVERY 6 HOURS PRN, Starting on Thu01/22/22 at 1525, Until Discontinued, Nausea, Vomiting
Administer if oral route cannot be used.
Post-op Group 3: oxyCODONE (ROXICODONE) immediate release tablet 5 mgJump to med 5 mg, Oral, EVERY 4 HOURS PRN, Starting on Thu01/22/22 at 1525, Until Discontinued, Pain Moderate (4-6), Post-op Or oxyCODONE (ROXICODONE) immediate release tablet 10 mgJump to med 10 mg, Oral, EVERY 4 HOURS PRN, Starting on Thu01/22/22 at 1525, Until Discontinued, Pain Severe (7-10), Post-op Scheduled Medication Order 03/11/2022 03/12/2022 03/13/2022 LORazepam (ATIVAN) tablet 1 mg (COMPLETED) 1 mg, Oral, ONCE, 1 dose, On Thu03/13/22 at 0846 0853 (Given - Provid er: Sherley Srinivasan RN) Scheduled Medication Order 07/06/2022 07/07/2022 07/08/2022 acetaminophen (TYLENOL) tablet 975 mg 975 mg, Oral, Every 6 hours scheduled, First dose on Thu07/01/22 at 1200 0000 (Not Given - Provider: Trista Sandoval RN - Reason: Patient/family refused)0609 (Given - Provider: Trista Sandoval RN)1200 (Given - Provider: Beth Rand RN)1800 (Not Given - Provider: Beth Rand RN - Reason: Patient/family refused) 0000 (Not Given - Provider: Trista Sandoval RN - Reason: Other)0622 (Given - Provider: Trista Sandoval RN)1212 (Given - Provider: Karen Badillo RN)1800 (Not Given - Provider: Karen Badillo RN - Reason: Patient/family refused) 0000 (Not Given - Provider: Shelby Haile RN - Reason: Patient/family refused)0521 (Given - Provider: Shelby Haile RN)1128 (Given - Provider: Karen Badillo RN) bisacodyL (DULCOLAX) suppository 10 mg 10 mg, Rectal, Daily, First dose on Thu07/04/22 at 1030 0802 (Given - Provider: Beth Rand RN) 0823 (Given - Provider: Karen Badillo RN) 0900 (Not Given - Provider: Karen Badillo RN - Reason: Patient/family refused) busPIRone (BUSPAR) tablet 10 mg 10 mg, Oral, 3 times daily, First dose on Thu07/01/22 at 1100 0802 (Given - Provider: Beth Rand RN)1559 (Given - Provider: Beth Rand RN)2100 (Not Given - Provider: Trista Sandoval RN - Reason: Patient/family refused) 0900 (Not Given - Provider: Karen Badillo RN - Reason: Patient/family refused)1649 (Given - Provider: Karen Badillo RN)2050 (Given - Provider: Shelby Haile RN) 0923 (Given - Provider: Karen Badillo RN) calcitrioL (ROCALTROL) capsule 0.5 mcg 0.5 mcg, Oral, Daily, First dose on Thu07/01/22 at 1500 0945 (Given - Provider: Beth Rand RN) 1211 (Given - Provider: Karen Badillo RN) 0923 (Given - Provider: Karen Badillo RN) cyclobenzaprine (FLEXERIL) tablet 10 mg 10 mg, Oral, Every 8 hours scheduled, First dose (after last modification) on Thu07/01/22 at 1100 0600 (Given - Provider: Beth Rand RN)1559 (Given - Provider: Beth Rand RN)2204 (Given - Provider: Trista Sandoval RN) 0639 (Given - Provider: Trista Sandoval RN)164 (Given - Provider: Karen Badillo RN) 0023 (Given - Provider: Shelby Haile, PATTY)0600 (Given - Provider: Shelby Haile, PATTY) enoxaparin (LOVENOX) syringe 30 mg 30 mg, Subcutaneous, 2 times daily, First dose on Thu07/01/22 at 2100, Administer in abdomen unless otherwise directed by prescriber. Notify physician if patient refuses., Indication: VTE Prophylaxis 0801 (Given - Provider: Beth Rand RN)220 (Given - Provider: Trista Sandoval RN) 0823 (Given - Provider: Karen Badillo RN)2049 (Given - Provider: Shelby Haile RN) 0923 (Given - Provider: Karen Badillo RN) ibuprofen (ADVIL,MOTRIN) tablet 600 mg 600 mg, Oral, 4 times daily with meals and nightly, First dose on Thu07/02/22 at 1200, Give with Food Do Not Crush or Chew if administering orally due to bitter taste. May be crushed if given via tube. 0753 (Given - Provider: Beth Rand RN)1200 (Not Given - Provider: Beth Rand RN - Reason: Patient/family refused)1830 (Given - Provider: Beth Rand RN)2204 (Given - Provider: Trista Sandoval RN) 0823 (Given - Provider: Karen Badillo RN)1212 (Given - Provider: Karen Badillo RN)164 (Given - Provider: Karen Badillo RN)205 (Given - Provider: Shelby Haile RN) 0923 (Given - Provider: Karen Badillo RN)1200 (Not Given - Provider: Karen Badillo RN - Reason: Order parameters not met) levothyroxine (SYNTHROID, LEVOTHROID) tablet 100 mcg 100 mcg, Oral, Daily, First dose on Thu07/01/22 at 1100, For patients on continuous tube feed: Hold TF from 1 hr before until 1 hr after each dose. TF rate may need adjustment to meet caloric needs. 0609 (Given - Provider: Trista Sandoval, PATTY) 0622 (Given - Provider: Trista Sandoval, RN) 0520 (Given - Provider: Shelby Haile, PATTY) magnesium hydroxide (MOM) 400 mg/5 mL suspension 2,400 mg 2,400 mg (30 mL), Oral, Daily, First dose on 07/05/22 at 0915 0900 (Not Given - Provider: Beth Rand RN - Reason: Patient/family refused) 0900 (Not Given - Provider: Karen Badillo RN - Reason: Patient/family refused) 0900 (Not Given - Provider: Karen Badillo RN - Reason: Patient/family refused) polyethylene glycol (MIRALAX) powder 17 g 17 g, Oral, Daily, First dose on Thu07/04/22 at 1030 0803 (Not Given - Provider: Beth Rand RN - Reason: Patient/family refused) 0900 (Not Given - Provider: Karen Badillo RN - Reason: Patient/family refused) 0900 (Not Given - Provider: Karen Badillo RN - Reason: Patient/family refused) senna-docusate (SENNA-S) 8.6-50 mg per tablet 1 tablet 1 tablet, Oral, Nightly, First dose on Thu07/02/22 at 2100, Hold for loose stools Do Not Crush or Chew if administering orally due to bitter taste. May be crushed if given via tube. 2205 (Given - Provider: Trista Sandoval RN) 2100 (Not Given - Provider: Shelby Haile RN - Reason: Patient/family refused) PRN Medication Order 07/06/2022 07/07/2022 07/08/2022 haemophilus B polysac-tetanus toxoid (ActHIB) (ActHIB) injection 0.5 mL 0.5 mL, Intramuscular, Prior To Discharge, administer vaccine prior to discharge, Starting on 07/05/22 at 0824, For 1 dose, Post Splenectomy. meningococcal B vaccine, 4-cmp (PF) (BEXSERO) syringe 0.5 mL 0.5 mL, Intramuscular, Prior To Discharge, administer vaccine prior to discharge, Starting on 07/05/22 at 0824, For 1 dose, Educate patient that they will need to follow-up with their health care provider for a second dose at least 4 weeks after the first dose of Bexsero (meningococal group B vaccine) administered. Tip cap contains LATEX. Use caution when handling if you have a latex allergy. Okay to administer to patient with latex allergy meningococcal conjugate (MENACTRA) injection 0.5 mL 0.5 mL, Intramuscular, Prior To Discharge, s/p spleen embolization, Starting on Thu07/05/22 at 0824, For 1 dose, Educate patient that they will need to follow-up with their health care provider for a second dose 2 months after meningococcal vaccine administered naloxone (NARCAN) injection 0.1 mg(Linked Group 1) 0.1 mg, Intravenous, As needed, opioid reversal, For respiratory rate less than or equal to 8 per minute., Starting on Thu06/30/22 at 1222, Mix nalOXone (NARCAN) 0.4 mg (1mL) with 9 mL of Normal Saline to total 10 mL. Administer 0.1 mg (2.5mL) IV Push every 2 minutes until respiratory rate is 10 or greater. naloxone (NARCAN) injection 0.4 mg(Linked Group 1) 0.4 mg, Intravenous, As needed, opioid reversal, patient is pulseless, breathless, and unresponsive, Starting on Thu06/30/22 at 1222, Call a code first, then administer naloxone dose undiluted IV Push over 30 seconds. ondansetron (ZOFRAN) injection 4 mg(Linked Group 2) 4 mg, Intravenous, Every 6 hours PRN, nausea, vomiting, Starting on Thu06/30/22 at 1039, [] Oral or IV - use oral route if tolerated. ondansetron (ZOFRAN-ODT) disintegrating tablet 4 mg(Linked Group 2) 4 mg, Oral, Every 6 hours PRN, nausea, vomiting, Starting on Thu06/30/22 at 1039, [] Oral or IV - use oral route if tolerated. Formulation requires tablet remain in sealed package until immediately prior to dose being administered. oxyCODONE (ROXICODONE) immediate release tablet 5 mg 5 mg, Oral, Every 3 hours PRN, moderate to severe pain, Starting on Thu06/30/22 at 1556 0609 (Given - Provider: Trista Sandoval RN)1834 (Given - Provider: Beth Rand RN) 1653 (Given - Provider: Karen Badillo RN)205 (Given - Provider: Shelby Haile, RN) 0023 (Given - Provider: Shelby Haile, RN)0443 (Given - Provider: Shelby Haile, PATTY)0717 (Given - Provider: Shelby Haile, RN) pneumococcal conj. 20-valent (PREVNAR 20) vaccine 0.5 mL 0.5 mL, Intramuscular, Prior To Discharge, administer vaccine prior to discharge, Starting on Thu07/05/22 at 0824, For 1 dose, Post Splenectomy REFRIGERATE. Hold the pre-filled syringe horizontally between the thumb and the forefinger and shake vigorously until the vaccine is a homogeneous white suspension. Do not use the vaccine if it cannot be re-suspended. For IM Use ONLY. Linked Groups Order Group 1: naloxone (NARCAN) injection 0.1 mgJump to med 0.1 mg, Intravenous, As needed, opioid reversal, For respiratory rate less than or equal to 8 per minute., Starting on Thu06/30/22 at 1222
Mix nalOXone (NARCAN) 0.4 mg (1mL) with 9 mL of Normal Saline to total 10 mL. Administer 0.1 mg (2.5mL) IV Push every 2 minutes until respiratory rate is 10 or greater.
And Notify physician (CANCELED) STAT, Until discontinued, Starting on Thu06/30/22 at 1223, Until Specified
Respiratory rate less than: 8
For respiratory rate less than or equal to 8, notify physician and/or appropriate staff for additional orders. And naloxone (NARCAN) injection 0.4 mgJump to med 0.4 mg, Intravenous, As needed, opioid reversal, patient is pulseless, breathless, and unresponsive, Starting on Thu06/30/22 at 1222
Call a code first, then administer naloxone dose undiluted IV Push over 30 seconds.
Group 2: ondansetron (ZOFRAN-ODT) disintegrating tablet 4 mgJump to med 4 mg, Oral, Every 6 hours PRN, nausea, vomiting, Starting on Thu06/30/22 at 1039
[] Oral or IV - use oral route if tolerated. Formulation requires tablet remain in sealed package until immediately prior to dose being administered.
Or ondansetron (ZOFRAN) injection 4 mgJump to med 4 mg, Intravenous, Every 6 hours PRN, nausea, vomiting, Starting on Thu06/30/22 at 1039
[] Oral or IV - use oral route if tolerated.
PRN Medication Order 01/17/2023 01/18/2023 01/19/2023 iopamidol (Isovue-370) 76 % injection 75 mL (COMPLETED) 75 mL, IntraVENous, IMG once PRN, contrast, Starting on Thu01/19/23 at 2109, For 1 dose 0 (Given - Provid er: MARCELLO Lee) Scheduled Medication Order 05/26/2023 05/27/2023 05/28/2023 acetaminophen (Tylenol) tablet 1,000 mg (COMPLETED) 1,000 mg, Oral, Once, On Kala 05/28/23 at 1120, For 1 dose, Maximum dose of acetaminophen is 4000 mg from all sources in 24 hours. 1130 (Given - Provid er: Sherley Srinivasan RN) diphenhydrAMINE (BENADryl) injection 25 mg (COMPLETED) 25 mg, IntraVENous, Once, On Kala 05/28/23 at 1115, For 1 dose 1137 (Given - Provid er: Sherley Srinivasan RN) ipratropium-albuterol (Duo-Neb) 0.5-2.5 mg/3 mL nebulizer solution 3 mL (COMPLETED) 3 mL, Nebulization, Once, On Kala 05/28/23 at 1115, For 1 dose 1142 (Given - Provid er: Sherley Srinivasan RN) ketorolac (Toradol) injection 15 mg (COMPLETED) 15 mg, IntraVENous, Once, On Kala 05/28/23 at 1115, For 1 dose 1139 (Given - Provid er: Sherley Srinivasan RN) methylPREDNISolone sodium succinate (PF) (SOLU-Medrol) injection 125 mg (COMPLETED) 125 mg, IntraVENous, Once, On Kala 05/28/23 at 1115, For 1 dose 1131 (Given - Provid er: Sherley Srinivasan RN) prochlorperazine (Compazine) injection 10 mg (COMPLETED) 10 mg, IntraVENous, Once, On Kala 05/28/23 at 1115, For 1 dose, Give IV if patient is unable to take orally. Give IM if patient is unable to take orally and does not have IV access. 1134 (Given - Provid er: Sherley Srinivasan, PATTY) sodium chloride 0.9 % bolus 1,000 mL (COMPLETED) 1,000 mL, IntraVENous, at 1,000 mL/hr, Administer over 1 Hours, Once, On Kala 05/28/23 at 1115, For 1 dose 1130 (New Bag - Prov ider: Sherley Srinivasan RN)1240 (Stopped - Provider: Sherley Srinivasan RN) Care Teams (unrecognized sec tion and content) Legal Consultant Relationship Specialty Start Date End Date Chandan Boss DO [address] [place] [address] PCP - General Internal Medicine 05/30/16 Legal Consultant Relationship Specialty Start Date End Date Chandan Boss [facility] [address] PCP - General Internal Medicine 01/07/17 Legal Consultant Relationship Specialty Start Date End Date Chandan Boss [address] [facility] [place] [address] PCP - General Internal Medicine 01/07/17 Legal Consultant Relationship Specialty Start Date End Date Chandan Boss [address] [facility] [place] [address] PCP - General Internal Medicine 01/07/17 Legal Consultant Relationship Specialty Start Date End Date Chandan Boss DO [address] [place] [address] PCP - General Internal Medicine 08/26/21 Legal Consultant Relationship Specialty Start Date End Date Chandan Boss DO [address] [place] [address] PCP - General Internal Medicine 08/26/21 Legal Consultant Relationship Specialty Start Date End Date Chandan Boss, DO [address] [place] [address] PCP - General Internal Medicine 08/26/21 Legal Consultant Relationship Specialty Start Date End Date Chandan Boss, DO [address] [place] [address] PCP - General Internal Medicine 08/26/21 Legal Consultant Relationship Specialty Start Date End Date Chandan Boss, DO [address] [place] [address] PCP - General Internal Medicine 08/26/21 Legal Consultant Relationship Specialty Start Date End Date No, Physician [facility] PCP - General 06/30/22 Legal Consultant Relationship Specialty Start Date End Date Chandan Boss [address] [place] [address] PCP - General Internal Medicine 01/07/17 Legal Consultant Relationship Specialty Start Date End Date Chandan Boss [address] [place] [address] PCP - General Internal Medicine 01/07/17 Legal Consultant Relationship Specialty Start Date End Date Chandan Boss [address] [place] [address] PCP - General Internal Medicine 01/07/17 Legal Consultant Relationship Specialty Start [place] [address] PCP - General Internal Medicine 01/07/17 Legal Consultant Relationship Specialty Start [place] [address] PCP - General Internal Medicine 01/07/17 Legal Consultant Relationship Specialty Start [place] [address] PCP - General Internal Medicine 01/07/17 Legal Consultant Relationship Specialty Start Date End Date Magdy Bossarturo [place] [address] [place] [address] PCP - General Internal Medicine 01/07/17 Legal Consultant Relationship Specialty Start Date End Date Magdy Bossarturo [place] [address] [place] [address] PCP - General Internal Medicine 01/07/17 Legal Consultant Relationship Specialty Start [place] [address] PCP - General Internal Medicine 01/07/17 Legal Consultant Relationship Specialty Start Date End [place] [address] PCP - General Internal Medicine 01/07/17 Legal Consultant Relationship Specialty Start [place] [address] PCP - General Internal Medicine 01/07/17 Legal Consultant Relationship Specialty Start Date End Date Oumar Chand[place] [address] PCP - General Internal Medicine 01/07/17 Legal Consultant Relationship Specialty Start [place] [address] PCP - General Internal Medicine 01/07/17 Legal Consultant Relationship Specialty Start [place] [address] PCP - General Internal Medicine 01/07/17 Legal Consultant Relationship Specialty Start Date End Date Chandan Boss DO [address] [place] [address] PCP - General 08/26/21 Legal Consultant Relationship Specialty Start Date End [place] [address] [place] [address] PCP - General Internal Medicine 01/07/17 Legal Consultant Relationship Specialty Start [place] [address] PCP - General Internal Medicine 01/07/17 Legal Consultant Relationship Specialty Start [place] [address] PCP - General Internal Medicine 01/07/17 Legal Consultant Relationship Specialty Start [place] [address] PCP - General Internal Medicine 01/07/17 Legal Consultant Relationship Specialty Start [place] [address] PCP - General Internal Medicine 01/07/17 Legal Consultant Relationship Specialty Start [place] [address] PCP - General Internal Medicine 01/07/17 Legal Consultant Relationship Specialty Start [place] [address] PCP - General Internal Medicine 01/07/17 Legal Consultant Relationship Specialty Start Date End Date Chandan Boss DO [address] [place] [address] PCP - General 08/26/21 Legal Consultant Relationship Specialty Start Date [place] [address] PCP - General Internal Medicine 01/07/17 Legal Consultant Relationship Specialty Start Date End Date Chandan Boss [address] [place] [address] PCP - General Internal Medicine 01/07/17 Legal Consultant Relationship Specialty Start Date End Date Chandan Boss DO [address] [facility] [place] [address] PCP - General 08/26/21 Legal Consultant Relationship Specialty Start Date End Date Chandan [place] [address] [place] [address] PCP - General Internal Medicine 01/07/17 Legal Consultant Relationship Specialty Start Date End Date Chandan [place] [place] [address] PCP - General Internal Medicine 01/07/17 Legal Consultant Relationship Specialty Start Date End Date Chandan Boss DO [address] [facility] [place] [address] PCP - General 08/26/21 Legal Consultant Relationship Specialty Start Date End Date Chandan Boss [address] [place] [address] PCP - General Internal Medicine 01/07/17 Legal Consultant Relationship Specialty Start Date End [place] [address] PCP - General Internal Medicine 01/07/17 Legal Consultant Relationship Specialty Start Date End Date Chandan Boss [address] [place] [address] PCP - General Internal Medicine 01/07/17 Legal Consultant Relationship Specialty Start Date End Date Chandan Boss DO [address] [facility] [place] [place] [address] PCP - General 08/26/21 Legal Consultant Relationship Specialty Start Date End Date Chandan Boss DO [address] [place] [address] PCP - General 08/26/21 Legal Consultant Relationship Specialty Start Date End Date Chandan Boss DO [address] [place] [address] PCP - General 08/26/21 Legal Consultant Relationship Specialty Start Date End Date Chandan Boss DO [address] [place] [address] PCP - General 08/26/21 Team Status: Active Member Role Status Dates CHANDAN BOSS Family Provider Active CHANDAN BOSS , Primary Care Provider Active Team Status: Inactive Member Role Status Dates Dr. Vijay Snider , Emergency Provider Active CHANDAN BOSS , Primary Care Provider Active Legal Consultant Relationship Specialty Start Date End Date Chandan Boss DO [address] [place] [address] PCP - General 08/26/21 Legal Consultant Relationship Specialty Start Date End Date Chandan Boss DO [address] [place] [address], [place] [address] PCP - General 08/26/21 Legal Consultant Relationship Specialty Start Date End Date Chandan Boss DO [address] [place] [address] [address] [place] [address] PCP - General 08/26/21 Legal Consultant Relationship Specialty Start Date End Date Chandan Boss DO [address] [place] [address] [address] [place] [address] PCP - General 08/26/21 Legal Consultant Relationship Specialty Start Date End Date Chandan Boss DO [address] [place] [address] [address] [place] [address] PCP - General 08/26/21 Legal Consultant Relationship Specialty Start Date End Date Chandan Boss DO [address] [place] [address] [address] [place] [address] PCP - General 08/26/21 Legal Consultant Relationship Specialty Start Date End Date Chandan Boss DO [address] [place] [address] [address] [place] [address] PCP - General 08/26/21 Legal Consultant Relationship Specialty Start Date End Date Chandan Boss DO [address] [place] [address], [place] [address] PCP - General 08/26/21 Legal Consultant Relationship Specialty Start Date End Date Chandan Boss DO [address] [place] [address], [place] [address] PCP - General 08/26/21 Legal Consultant Relationship Specialty Start Date End Date Chandan Boss DO [address] [place] [address] [address] [place] [address] PCP - General 08/26/21 Legal Consultant Relationship Specialty Start Date End Date Chandan Boss DO [address] [place] [address] [address] [place] [address] PCP - General 08/26/21 Legal Consultant Relationship Specialty Start Date End Date Chandan Boss DO [address] [place] [address] [address] [place] [address] PCP - General 08/26/21 Legal Consultant Relationship Specialty Start Date End Date Chandan Boss DO [address] [place] [address] [address] [place] [address] PCP - General 08/26/21 Legal Consultant Relationship Specialty Start Date End Date Chandan Boss DO [address] [place] [address] [address] [place] [address] PCP - General 08/26/21 Legal Consultant Relationship Specialty Start Date End Date Chandan Boss DO [address] [place] [address] [address] [place] [address] PCP - General 08/26/21 Legal Consultant Relationship Specialty Start Date End Date Chandan Boss DO [address] [place] [address] [address] [place] [address] PCP - General 08/26/21 Legal Consultant Relationship Specialty Start Date End Date Chandan Boss DO [address] [place] [address] [address] [place] [address] PCP - General 08/26/21 Legal Consultant Relationship Specialty Start Date End Date Chandan Boss DO [address] [place] [address] [address] [place] [address] PCP - General 08/26/21 Legal Consultant Relationship Specialty Start Date End Date Chandan Boss DO [address] [place] [address] [address] [place] [address] PCP - General 08/26/21 Legal Consultant Relationship Specialty Start Date End Date Chandan Boss DO [address] [place] [address] [address] [place] [address] PCP - General 08/26/21 Legal Consultant Relationship Specialty Start Date End Date Chandan Boss DO [address] [place] [address] [address] [place] [address] PCP - General 08/26/21 Legal Consultant Relationship Specialty Start Date End Date Chandan Boss, DO [address] [place] [address], [place] [address] PCP - General 08/26/21 Legal Consultant Relationship Specialty Start Date End Date Chandan Boss, DO [address] [place] [address], [place] [address] PCP - General 08/26/21 Legal Consultant Relationship Specialty Start Date End Date Chandan Boss, DO [address] [place] [address], [place] [address] PCP - General 08/26/21 Legal Consultant Relationship Specialty Start Date End Date Chandan Boss, DO [address] [place] [address], [place] [address] PCP - General 08/26/21 Legal Consultant Relationship Specialty Start Date End Date Chandan Boss, DO [address] [place] [address], [place] [address] PCP - General 08/26/21 Legal Consultant Relationship Specialty Start Date End Date Chandan Boss, DO [address] [place] [address], [place] [address] PCP - General 08/26/21 Legal Consultant Relationship Specialty Start Date End Date Chandan Boss DO [address] [place] [address] [address] [place] [address] PCP - General 08/26/21 Legal Consultant Relationship Specialty Start Date End Date Chandan Boss DO [address] [place] [address] [address] [place] [address] PCP - General 08/26/21 Legal Consultant Relationship Specialty Start Date End Date Chandan BossDO [address] [facility] [address] [place] [address] PCP - General 08/26/21 INFORMATION SOURCE (unrecogn ized section and content) DATE CREATED AUTHOR 09/04/2021 [facility] DATE CREATED AUTHOR AUTHOR'S ORGANIZ ATION 03/22/2022 [facility] DATE CREATED AUTHOR AUTHOR'S ORGANIZ ATION 05/07/2022 [facility] DATE CREATED AUTHOR AUTHOR'S ORGANIZ ATION 07/16/2022 [facility] DATE CREATED AUTHOR AUTHOR'S ORGANIZ ATION 02/09/2023 [facility] DATE CREATED AUTHOR AUTHOR'S ORGANIZ ATION 02/13/2023 [facility] DATE CREATED AUTHOR AUTHOR'S ORGANIZ ATION 06/28/2024 [facility] DATE CREATED AUTHOR AUTHOR'S ORGANIZ ATION 08/26/2024 [facility] DATE CREATED AUTHOR AUTHOR'S ORGANIZ ATION 09/01/2024 [facility] DATE CREATED AUTHOR AUTHOR'S ORGANIZ ATION 12/28/2024 [facility] DATE CREATED AUTHOR AUTHOR'S ORGANIZ ATION 02/19/2025 [facility] Source Comments (unrecognize d section and content) In the event this informatio n is protected by the Federal Confidentiality of Alcohol and Drug Abuse Patient Records regulations: The Federal rules restrict any use of the information to criminally investigate or prosecute any alcohol or drug abuse patient.[facility] the event this information is protected by the Federal Confidentiality of Alcohol and Drug Abuse Patient Records regulations: The Federal rules restrict any use of the information to criminally investigate or prosecute any alcohol or drug abuse patient.[facility] the event this information is protected by the Federal Confidentiality of Alcohol and Drug Abuse Patient Records regulations: The Federal rules restrict any use of the information to criminally investigate or prosecute any alcohol or drug abuse patient.[facility] the event this information is protected by the Federal Confidentiality of Alcohol and Drug Abuse Patient Records regulations: The Federal rules restrict any use of the information to criminally investigate or prosecute any alcohol or drug abuse patient.[facility] the event this information is protected by the Federal Confidentiality of Alcohol and Drug Abuse Patient Records regulations: The Federal rules restrict any use of the information to criminally investigate or prosecute any alcohol or drug abuse patient.[facility]In the event this information is protected by the Federal Confidentiality of Alcohol and Drug Abuse Patient Records regulations: The Federal rules restrict any use of the information to criminally investigate or prosecute any alcohol or drug abuse patient.[facility] the event this information is protected by the Federal Confidentiality of Alcohol and Drug Abuse Patient Records regulations: The Federal rules restrict any use of the information to criminally investigate or prosecute any alcohol or drug abuse patient.[facility] Center[facility] the event this information is protected by the Federal Confidentiality of Alcohol and Drug Abuse Patient Records regulations: The Federal rules restrict any use of the information to criminally investigate or prosecute any alcohol or drug abuse patient.[facility] Center[facility] the event this information is protected by the Federal Confidentiality of Alcohol and Drug Abuse Patient Records regulations: The Federal rules restrict any use of the information to criminally investigate or prosecute any alcohol or drug abuse patient.[facility] Center[facility] the event this information is protected by the Federal Confidentiality of Alcohol and Drug Abuse Patient Records regulations: The Federal rules restrict any use of the information to criminally investigate or prosecute any alcohol or drug abuse patient.[facility] CenterIn the event this information is protected by the Federal Confidentiality of Alcohol and Drug Abuse Patient Records regulations: The Federal rules restrict any use of the information to criminally investigate or prosecute any alcohol or drug abuse patient.[facility] CenterIn the event this information is protected by the Federal Confidentiality of Alcohol and Drug Abuse Patient Records regulations: The Federal rules restrict any use of the information to criminally investigate or prosecute any alcohol or drug abuse patient.[facility] CenterIn the event this information is protected by the Federal Confidentiality of Alcohol and Drug Abuse Patient Records regulations: The Federal rules restrict any use of the information to criminally investigate or prosecute any alcohol or drug abuse patient.[facility] CenterIn the event this information is protected by the Federal Confidentiality of Alcohol and Drug Abuse Patient Records regulations: The Federal rules restrict any use of the information to criminally investigate or prosecute any alcohol or drug abuse patient.[facility] CenterIn the event this information is protected by the Federal Confidentiality of Alcohol and Drug Abuse Patient Records regulations: The Federal rules restrict any use of the information to criminally investigate or prosecute any alcohol or drug abuse patient.[facility] CenterIn the event this information is protected by the Federal Confidentiality of Alcohol and Drug Abuse Patient Records regulations: The Federal rules restrict any use of the information to criminally investigate or prosecute any alcohol or drug abuse patient.[facility] CenterIn the event this information is protected by the Federal Confidentiality of Alcohol and Drug Abuse Patient Records regulations: The Federal rules restrict any use of the information to criminally investigate or prosecute any alcohol or drug abuse patient.[facility] CenterIn the event this information is protected by the Federal Confidentiality of Alcohol and Drug Abuse Patient Records regulations: The Federal rules restrict any use of the information to criminally investigate or prosecute any alcohol or drug abuse patient.[facility] CenterIn the event this information is protected by the Federal Confidentiality of Alcohol and Drug Abuse Patient Records regulations: The Federal rules restrict any use of the information to criminally investigate or prosecute any alcohol or drug abuse patient.[facility] CenterIn the event this information is protected by the Federal Confidentiality of Alcohol and Drug Abuse Patient Records regulations: The Federal rules restrict any use of the information to criminally investigate or prosecute any alcohol or drug abuse patient.[facility] CenterIn the event this information is protected by the Federal Confidentiality of Alcohol and Drug Abuse Patient Records regulations: The Federal rules restrict any use of the information to criminally investigate or prosecute any alcohol or drug abuse patient.[facility] CenterIn the event this information is protected by the Federal Confidentiality of Alcohol and Drug Abuse Patient Records regulations: The Federal rules restrict any use of the information to criminally investigate or prosecute any alcohol or drug abuse patient.[facility] CenterIn the event this information is protected by the Federal Confidentiality of Alcohol and Drug Abuse Patient Records regulations: The Federal rules restrict any use of the information to criminally investigate or prosecute any alcohol or drug abuse patient.[facility] CenterIn the event this information is protected by the Federal Confidentiality of Alcohol and Drug Abuse Patient Records regulations: The Federal rules restrict any use of the information to criminally investigate or prosecute any alcohol or drug abuse patient.[facility] CenterIn the event this information is protected by the Federal Confidentiality of Alcohol and Drug Abuse Patient Records regulations: The Federal rules restrict any use of the information to criminally investigate or prosecute any alcohol or drug abuse patient.[facility] CenterIn the event this information is protected by the Federal Confidentiality of Alcohol and Drug Abuse Patient Records regulations: The Federal rules restrict any use of the information to criminally investigate or prosecute any alcohol or drug abuse patient.[facility] CenterIn the event this information is protected by the Federal Confidentiality of Alcohol and Drug Abuse Patient Records regulations: The Federal rules restrict any use of the information to criminally investigate or prosecute any alcohol or drug abuse patient.[facility] CenterIn the event this information is protected by the Federal Confidentiality of Alcohol and Drug Abuse Patient Records regulations: The Federal rules restrict any use of the information to criminally investigate or prosecute any alcohol or drug abuse patient.[facility] CenterIn the event this information is protected by the Federal Confidentiality of Alcohol and Drug Abuse Patient Records regulations: The Federal rules restrict any use of the information to criminally investigate or prosecute any alcohol or drug abuse patient.[facility] CenterIn the event this information is protected by the Federal Confidentiality of Alcohol and Drug Abuse Patient Records regulations: The Federal rules restrict any use of the information to criminally investigate or prosecute any alcohol or drug abuse patient.[facility] CenterIn the event this information is protected by the Federal Confidentiality of Alcohol and Drug Abuse Patient Records regulations: The Federal rules restrict any use of the information to criminally investigate or prosecute any alcohol or drug abuse patient.[facility] CenterIn the event this information is protected by the Federal Confidentiality of Alcohol and Drug Abuse Patient Records regulations: The Federal rules restrict any use of the information to criminally investigate or prosecute any alcohol or drug abuse patient.[facility] CenterIn the event this information is protected by the Federal Confidentiality of Alcohol and Drug Abuse Patient Records regulations: The Federal rules restrict any use of the information to criminally investigate or prosecute any alcohol or drug abuse patient.[facility] CenterIn the event this information is protected by the Federal Confidentiality of Alcohol and Drug Abuse Patient Records regulations: The Federal rules restrict any use of the information to criminally investigate or prosecute any alcohol or drug abuse patient.[facility] CenterIn the event this information is protected by the Federal Confidentiality of Alcohol and Drug Abuse Patient Records regulations: The Federal rules restrict any use of the information to criminally investigate or prosecute any alcohol or drug abuse patient.[facility] CenterIn the event this information is protected by the Federal Confidentiality of Alcohol and Drug Abuse Patient Records regulations: The Federal rules restrict any use of the information to criminally investigate or prosecute any alcohol or drug abuse patient.[facility] CenterIn the event this information is protected by the Federal Confidentiality of Alcohol and Drug Abuse Patient Records regulations: The Federal rules restrict any use of the information to criminally investigate or prosecute any alcohol or drug abuse patient.[facility] CenterIn the event this information is protected by the Federal Confidentiality of Alcohol and Drug Abuse Patient Records regulations: The Federal rules restrict any use of the information to criminally investigate or prosecute any alcohol or drug abuse patient.[facility] CenterIn the event this information is protected by the Federal Confidentiality of Alcohol and Drug Abuse Patient Records regulations: The Federal rules restrict any use of the information to criminally investigate or prosecute any alcohol or drug abuse patient.[facility] CenterIn the event this information is protected by the Federal Confidentiality of Alcohol and Drug Abuse Patient Records regulations: The Federal rules restrict any use of the information to criminally investigate or prosecute any alcohol or drug abuse patient.[facility] CenterIn the event this information is protected by the Federal Confidentiality of Alcohol and Drug Abuse Patient Records regulations: The Federal rules restrict any use of the information to criminally investigate or prosecute any alcohol or drug abuse patient.[facility] Goals (unrecognized section and content) Goals may be documented in a n alternate section FOR RECORDS PERTAINING TO PATIENTS WHO ARE OR HAVE BEEN ENROLLED IN A CHEMICAL DEPENDENCY/SUBSTANCEABUSE PROGRAM, SOME INFORMATION MAY BE OMITTED. This clinical summary was aggregated from multiple sources. Caution should be exercised in using it in the provision of clinical care. This summary normalizes information from multiple sources, and as a consequence, information in this document may materially change the coding, format and clinical context of patient data. In addition, data may be omitted in some cases. CLINICAL DECISIONS SHOULD BE BASED ON THE PRIMARY CLINICAL RECORDS. [facility]. provides no warranty or guarantee of the accuracy or completeness of information in this document.
[2025-04-16 05:00] VITALS: BP 98/54; PULSE 53; RESP 16; O2SAT 93
[2025-04-16 06:37] VITALS: BP 101/68; PULSE 62; RESP 18; TEMP 36.8; O2SAT 94
== END 2025-04-16 06:40 | disposition home or self-care (01) ==
PROVIDERS: Emergency Provider Emergency Medicine; PCP Family Medicine; Visit Provider Emergency Medicine
DX: N39.0 Urinary tract infection, site not specified (principal); C73 Malignant neoplasm of thyroid gland; R19.7 Diarrhea, unspecified; R11.0 Nausea; Z79.890 Hormone replacement therapy; F41.9 Anxiety disorder, unspecified; Z79.899 Other long term (current) drug therapy; F17.210 Nicotine dependence, cigarettes, uncomplicated
CPT/HCPCS: 74177; 80048; 80076; 81001; 83690; 84703; 85025; 87077; 87086; 87088; 87186; 96361; 96374; 99285; Q9967; A4216